=== PATIENT | male | born 1935 | race Hispanic/Latino ===

== ENCOUNTER 2019-01-24 14:10 | Emergency (ER) | payer OTHER ==
[2019-01-24] MEDS ORDERED: COLCHICINE 0.6 MG TAB ONE ×2 (20:10→22:08)
[2019-01-24] MEDS ORDERED: ACETAMINOPHEN 500 MG TAB ONE (20:10)
[2019-01-24 20:25] LABS: Absolute Lymphocytes (CBC) 1.4 K/uL (0.7-4.9); Absolute Monocytes 1.2 K/uL (0.1-1.3); Basophils % 0.8 % (0-1.3); Eosinophils % 1.2 % (0-4.4); Hematocrit 43.7 % (39.6-49.0); Lymphocytes % 12.8 % (15.3-44.8); MPV 8.5 fL (7.6-11.3); Monocytes % 11.2 % (3.3-12.3); Protime INR 1.23; RBC Red Blood Cell Count 5.17 M/uL (4.33-5.43)
[2019-01-24 20:38] LABS: ALT/SGPT 33 U/L (12-78); AST/SGOT 19 U/L (15-37); Albumin 3.4 g/dL (3.4-5.0); Alkaline Phosphatase 95 U/L (45-117); BUN Blood Urea Nitrogen 23 mg/dL (7-18); Bicarbonate 27 mmol/L (21-32); Bilirubin Direct 0.2 mg/dL (0-0.2); Bilirubin Total 0.8 mg/dL (0.2-1.0); Glucose Level 121 mg/dL (74-106); Magnesium 2.4 mg/dL (1.8-2.4); NT PRO-BNP 581 pg/mL (<450); Protein, Total 7.2 g/dL (6.4-8.2); Sodium Level 140 mmol/L (136-145); Troponin (Emerg Dept Use Only) < 0.02 ng/mL (0.0-0.045); Uric Acid 7.7 mg/dL (3.5-7.2)
[2019-01-24] MEDS ORDERED: CLINDAMYCIN IV 150 MG/ML (4 mL) VIAL ONE (20:39)
[2019-01-24] MEDS ORDERED: CLINDAMYCIN 600MG/D5W 600 MG/50 ML BAG IV ONE (20:40)
--- NOTE | 2019-01-24 21:15 | RAD REPORT ---
EXAM DESCRIPTION: RAD - Chest Single View - 01/24/2019 8:46 pm CLINICAL HISTORY: Chest pain, shortness of breath COMPARISON: December 2017 TECHNIQUE: AP portable chest image was obtained 2018 hour . FINDINGS: Patient has mild chronic interstitial lung findings. No focal mass, failure or infiltrate. Lung markings are similar to comparison. Heart and vasculature are normal. No measurable pleural effusion and no pneumothorax. No acute bony abnormality seen. No acute aortic findings suspected. IMPRESSION: No acute cardiopulmonary process. No significant change from comparison.
--- NOTE | 2019-01-24 21:16 | RAD REPORT ---
EXAM DESCRIPTION: RAD - Foot Right 3 View - 01/24/2019 8:46 pm CLINICAL HISTORY: Right foot pain and swelling COMPARISON: None. FINDINGS: No fracture, dislocation or periosteal reaction. No acute or destructive bone process seen . IP joint space narrowing present without spurring or erosive change. Degenerative changes moderate at the first MTP joint. Small plantar and small Achilles spurs are present. No air or foreign body in the soft tissues. IMPRESSION: Negative right foot examination for acute finding. Right foot degenerative change present as detailed.
--- NOTE | 2019-01-24 22:28 | ER ---
Nurse's Notes [facility] Name: Steve García Age: 83 yrs Sex: Male : 1935 Arrival Date: 01/24/2019 Time: 14:14 Bed 5 Private MD: None, None Diagnosis: Acute Right Foot Pain and Swelling Presentation: 01/24 14:35 Presenting complaint: Patient states: electric shock sensation to bilateral feet x ss years that has gotten worse over the past three days. states, "I think it's gout.". Transition of care: patient was not received from another setting of care. Onset of symptoms is unknown. Risk Assessment: Do you want to hurt yourself or someone else? Patient reports no desire to harm self or others. Initial Sepsis Screen: Does the patient meet any 2 criteria? No. Patient's initial sepsis screen is negative. Does the patient have a suspected source of infection? No. Patient's initial sepsis screen is negative. Care prior to arrival: None. 14:35 Method Of Arrival: Ambulatory ss 14:35 Acuity: DEANNE 4 ss 19:55 Acuity: EDANNE 3 tl2 Historical: - Allergies: 14:36 NKDA; ss - PMHx: 14:36 Hyperlipidemia; Hypertension; ss - PSHx: 14:36 kidney removal; Tonsillectomy; left ankle; ss - Immunization history:: Adult Immunizations unknown. - Social history:: Smoking status: Patient/guardian denies using tobacco. - Ebola Screening: : Patient denies exposure to infectious person Patient denies travel to an Ebola-affected area in the 21 days before illness onset. - Family history:: not pertinent. - Hospitalizations: : No recent hospitalization is reported. Screenin:26 Abuse screen: Denies threats or abuse. Nutritional screening: No deficits noted. tw2 Tuberculosis screening: No symptoms or risk factors identified. Fall Risk Secondary diagnosis (15 points) impaired mobility. Assessment: 18:23 General: Appears in no apparent distress. Behavior is calm, cooperative, appropriate tw2 for age. Pain: Complains of pain in right foot and left foot. Neuro: Level of Consciousness is awake, alert, obeys commands, Oriented to person, place, time, situation. Cardiovascular: Patient's skin is warm and dry. Respiratory: Airway is patent Respiratory effort is even, unlabored, Respiratory pattern is regular, symmetrical. GI: No signs and/or symptoms were reported involving the gastrointestinal system. : No signs and/or symptoms were reported regarding the genitourinary system. EENT: No signs and/or symptoms were reported regarding the EENT system. Derm: No signs and/or symptoms reported regarding the dermatologic system. Musculoskeletal: Circulation, motion, and sensation intact. Range of motion: intact in all extremities, Reports pain in right foot and left foot "tingling in my feet". 19:39 Reassessment: Patient appears in no apparent distress at this time. No changes from ak1 previously documented assessment. Patient and/or family updated on plan of care and expected duration. Pain level reassessed. Patient is alert, oriented x 3, equal unlabored respirations, skin warm/dry/pink. 19:50 Reassessment: pt and family informed of wait for ERP orders to be placed. ak1 20:33 Reassessment: pt requesting left foot be Xray, Dr. Lu said no. ak1 22:09 Reassessment: awaiting dispo. tl2 22:36 Reassessment: Patient appears in no apparent distress at this time. No changes from ak1 previously documented assessment. Patient and/or family updated on plan of care and expected duration. Pain level reassessed. Patient is alert, oriented x 3, equal unlabored respirations, skin warm/dry/pink. Vital Signs: 14:36 BP 132 / 62; Pulse 80; Resp 16; Temp 97.7(TE); Pulse Ox 100% on R/A; Weight 96.16 kg; ss Pain 10/10; 19:50 BP 141 / 66; Pulse 74; Resp 16; Temp 98(O); Pulse Ox 99% on R/A; ak1 21:18 BP 114 / 89; Pulse 67; Resp 17; Pulse Ox 99% on R/A; tl2 22:09 BP 127 / 66; Pulse 70; Resp 18; Pulse Ox 98% on R/A; tl2 22:46 BP 126 / 52; Pulse 62; Resp 16; Temp 98.3; Pulse Ox 98% on R/A; ak1 ED Course: 14:14 Patient arrived in ED. mr 14:14 None, None is Private Physician. mr 14:35 Triage completed. ss 14:36 Arm band placed on right wrist. ss 18:23 Bed in low position. Call light in reach. Adult w/ patient. Pulse ox on. NIBP on. tw2 19:00 Report given to JULIO CESAR Sahu and JULIO CESAR Babcock. tw2 19:16 Jean Lu MD is Attending Physician. wa 19:38 Adelnia Caballero RN is Primary Nurse. ak1 20:00 Initial lab(s) drawn, by me, sent to lab. First set of blood cultures drawn by me, ak1 Second set of blood cultures drawn by me, EKG done, by ED staff. 20:10 Inserted saline lock: 22 gauge in right antecubital area, using aseptic technique. ak1 Blood collected. 20:46 XRAY Chest (1 view) In Process Unspecified. EDMS 20:46 Foot Right 3 View XRAY In Process Unspecified. EDMS 22:36 No provider procedures requiring assistance completed. ak1 22:49 IV discontinued, intact, bleeding controlled, No redness/swelling at site. Pressure ak1 dressing applied. Administered Medications: 20:05 Drug: Tylenol 1000 mg Route: PO; tl2 22:00 Follow up: Response: No adverse reaction tl2 20:06 Drug: Colcrys 1.2 mg Route: PO; tl2 22:01 Follow up: Response: No adverse reaction tl2 20:32 Drug: Clindamycin 900 mg Route: IVPB; Infused Over: 30 mins; Site: right antecubital; tl2 21:07 Follow up: IV Status: Completed infusion tl2 22:00 Drug: Colcrys 0.6 mg Route: PO; tl2 22:47 Follow up: Response: No adverse reaction ak1 Outcome: 22:28 Discharge ordered by . wa 22:37 Condition: stable ak1 22:49 Discharged to home via wheelchair, with family. ak1 22:49 Discharge instructions given to patient, family, Instructed on discharge instructions, follow up and referral plans. medication usage, Demonstrated understanding of instructions, follow-up care, medications, Prescriptions given X 1. 22:49 Patient left the ED. ak1 Signatures: Dispatcher [employer] EDCA Gita ClarkLiset RN RN Adelina Caballero RN RN ak1 Faustina Watkins RN RN tw2 Yoko Mackenzie RN RN tl2 Jean Lu MD MD wa
--- NOTE | 2019-01-24 22:28 | EDPHYS ---
Physician Documentation [facility] Name: Steve García Age: 83 yrs Sex: Male : 1935 Arrival Date: 01/24/2019 Time: 14:14 Bed 5 Private MD: None, None ED Physician Jean Lu HPI: 01/24 20:40 This 83 yrs old Male presents to ER via Ambulatory with complaints of Feet wa Swelling. 20:40 The patient presents with pain, that is acute, swelling, tenderness, redness. The wa complaints affect the right foot. Context: denies injury. h/o same, on and off x several years. denies fever or chills. states both feet hurt and tingle all the time. This time swelling to right x 3 days. Onset: The symptoms/episode began/occurred 3 day(s) ago. Modifying factors: The symptoms are alleviated by nothing, the symptoms are aggravated by weight bearing, movement. Associated signs and symptoms: Pertinent positives: of the right foot, worse on dorsum, swelling, tingling warmth, Pertinent negatives: calf tenderness, fever, numbness, vomiting. Severity of symptoms: At their worst the symptoms were moderate, in the emergency department the symptoms are unchanged. The patient has experienced similar episodes in the past, multiple times, x several years. The patient has not recently seen a physician[facility] Historical: - Allergies: 14:36 NKDA; ss - PMHx: 14:36 Hyperlipidemia; Hypertension; ss - PSHx: 14:36 kidney removal; Tonsillectomy; left ankle; ss - Immunization history:: Adult Immunizations unknown. - Social history:: Smoking status: Patient/guardian denies using tobacco. - Ebola Screening: : Patient denies exposure to infectious person Patient denies travel to an Ebola-affected area in the 21 days before illness onset. - Family history:: not pertinent. - Hospitalizations: : No recent hospitalization is reported. ROS: 20:47 MS/extremity: Positive for erythema, pain, swelling, tenderness, of the right foot, wa Negative for deformity, ecchymosis, laceration. 20:47 Constitutional: Negative for fever, chills, and weight loss, Eyes: Negative for injury, pain, redness, and discharge, ENT: Negative for injury, pain, and discharge, Neck: Negative for injury, pain, and swelling, Cardiovascular: Negative for chest pain, palpitations, and edema, Abdomen/GI: Negative for abdominal pain, nausea, vomiting, diarrhea, and constipation, Back: Negative for injury and pain, : Negative for injury, bleeding, discharge, and swelling, Neuro: Negative for headache, weakness, numbness, tingling, and seizure, Psych: Negative for depression, anxiety, suicide ideation, homicidal ideation, and hallucinations. 20:47 Respiratory: Positive for dyspnea on exertion. 20:47 MS/extremity: Positive for erythema, pain, swelling, tenderness, of the right foot. 20:47 Skin: Positive for erythema, swelling, increased warmth, tenderness. worse on dorsal aspect and big toe and lateral aspect of the foot. Exam: 20:50 Constitutional: This is a well developed, well nourished patient who is awake, alert, wa and in no acute distress. Head/Face: Normocephalic, atraumatic. Eyes: Pupils equal round and reactive to light, extra-ocular motions intact. Lids and lashes normal. Conjunctiva and sclera are non-icteric and not injected. Cornea within normal limits. Periorbital areas with no swelling, redness, or edema. ENT: Nares patent. No nasal discharge, no septal abnormalities noted. Tympanic membranes are normal and external auditory canals are clear. Oropharynx with no redness, swelling, or masses, exudates, or evidence of obstruction, uvula midline. Mucous membranes moist. Neck: Trachea midline, no thyromegaly or masses palpated, and no cervical lymphadenopathy. Supple, full range of motion without nuchal rigidity, or vertebral point tenderness. No Meningismus. Chest/axilla: Normal chest wall appearance and motion. Nontender with no deformity. No lesions are appreciated. Cardiovascular: Regular rate and rhythm with a normal S1 and S2. No gallops, murmurs, or rubs. Normal PMI, no JVD. No pulse deficits. Respiratory: Lungs have equal breath sounds bilaterally, clear to auscultation and percussion. No rales, rhonchi or wheezes noted. No increased work of breathing, no retractions or nasal flaring. Abdomen/GI: Soft, non-tender, with normal bowel sounds. No distension or tympany. No guarding or rebound. No evidence of tenderness throughout. Back: No spinal tenderness. No costovertebral tenderness. Full range of motion. Neuro: Awake and alert, GCS 15, oriented to person, place, time, and situation. Cranial nerves II-XII grossly intact. Motor strength 5/5 in all extremities. Sensory grossly intact. Cerebellar exam normal. Normal gait. Psych: Awake, alert, with orientation to person, place and time. Behavior, mood, and affect are within normal limits. 20:50 Musculoskeletal/extremity: Extremities: grossly normal except: noted in the right foot: erythema, pain, swelling, tenderness, increased warmth, especially at MTP of great toe and R lateral foot. 20:50 Skin: R dorsal redness, swelling, tenderness. . Vital Signs: 14:36 BP 132 / 62; Pulse 80; Resp 16; Temp 97.7(TE); Pulse Ox 100% on R/A; Weight 96.16 kg; ss Pain 10/10; 19:50 BP 141 / 66; Pulse 74; Resp 16; Temp 98(O); Pulse Ox 99% on R/A; ak1 21:18 BP 114 / 89; Pulse 67; Resp 17; Pulse Ox 99% on R/A; tl2 22:09 BP 127 / 66; Pulse 70; Resp 18; Pulse Ox 98% on R/A; tl2 22:46 BP 126 / 52; Pulse 62; Resp 16; Temp 98.3; Pulse Ox 98% on R/A; ak1 MDM: 19:17 Patient medically screened. wa 20:52 Differential diagnosis: gout, cellulitis. Data reviewed: vital signs, nurses notes. wa 21:29 Test interpretation: by ED physician or midlevel provider: labs noted for glucose 121. wa BUN 23. Cr. 1.43. nml cbc. BNP 581. uric acid 7.7 CXR negative. mild elevation in uric acid. nml wbc. mild elevation in BNP. decreased GFR. . 21:32 Test interpretation: by ED physician or midlevel provider: Ash ASIF. no acute wa findings. . 21:34 Response to treatment: the patient's symptoms have mildly improved after treatment, wa appears comfortable. will give second dose of colcrys. will cover with abx as well, r/o cellulitis. 21:36 Test interpretation: by ED physician or midlevel provider: ECG, EKG: HR 71. LVH. wa incomplete RBBB. leftward axis. non-specific ST-T changes. 22:26 ED course: will d/c with abx for potential cellulitis. received full dose of colcrys in [place] ED. tylenol for pain. 01/24 19:52 Order name: Basic Metabolic Panel; Complete Time: 21:28 [place] 01/24 19:52 Order name: CBC with Diff; Complete Time: 21: [place] 01/24 19:52 Order name: LFT's; Complete Time: : [place] 01/24 19:52 Order name: Magnesium; Complete Time: 21:29 [place] 01/24 19:52 Order name: NT PRO-BNP; Complete Time: 21: [place] 01/24 19:52 Order name: PT-INR; Complete Time: 21: [place] 01/24 19:52 Order name: Troponin (emerg Dept Use Only); Complete Time: 21:29 [place] 01/24 19:52 Order name: XRAY Chest (1 view); Complete Time: 21: [place] 01/24 19:53 Order name: Foot Right 3 View XRAY; Complete Time: 21:31 [place] 01/24 19:53 Order name: Uric Acid; Complete Time: 21:29 [place] 01/24 19:58 Order name: Urine Microscopic Only [place] 01/24 22:48 Order name: Urine Dipstick--Ancillary (enter results) [facility] 01/24 19:52 Order name: EKG; Complete Time: 19:53 [place] 01/24 19:52 Order name: Cardiac monitoring; Complete Time: 20: [place] 01/24 19:52 Order name: EKG - Nurse/Tech; Complete Time: 20: [place] 01/24 19:52 Order name: IV Saline Lock; Complete Time: 20:06 [place] 01/24 19:52 Order name: Labs collected and sent; Complete Time: 20:06 [place] 01/24 19:52 Order name: O2 Per Protocol; Complete Time: 19:54 01/24 19:52 Order name: O2 Sat Monitoring; Complete Time: 19:54 [place] 01/24 19:58 Order name: Urine Dipstick-Ancillary (obtain specimen); Complete Time: 22:47 [place] Administered Medications: 20:05 Drug: Tylenol 1000 mg Route: PO; tl2 22:00 Follow up: Response: No adverse reaction tl2 20:06 Drug: Colcrys 1.2 mg Route: PO; tl2 22:01 Follow up: Response: No adverse reaction tl2 20:32 Drug: Clindamycin 900 mg Route: IVPB; Infused Over: 30 mins; Site: right antecubital; tl2 21:07 Follow up: IV Status: Completed infusion tl2 22:00 Drug: Colcrys 0.6 mg Route: PO; tl2 22:47 Follow up: Response: No adverse reaction ak1 Disposition: 01/24/19 22:28 Discharged to Home. Impression: Acute Right Foot Pain and Swelling. - Condition is Stable. - Discharge Instructions: Gout, [place]-P[place]. - Prescriptions for Doxycycline Hyclate 100 mg Oral Tablet - take 1 tablet by ORAL route 2 times per day for 7 days; 14 tablet. - Medication Reconciliation Form, Thank You Letter, Antibiotic Education, Prescription Opioid Use form. - Follow up: Private Physician; When: 2 - 3 days; Reason: Re-evaluation by your physician. - Problem is an acute exacerbation. - Symptoms have improved. - Notes: take tylenol for pain. elevate your feet when at home to help reduce swelling. see your doctor or return here immediately if rapidly worsening with associated pain and or swelling Signatures: Dispatcher [employer] EDMS Liset Cabrera RN RN Adelina Caballero RN RN ak1 Yoko Mackenzie RN RN tl2 Jean Lu MD MD wa Corrections: (The following items were deleted from the chart) 22:49 22:28 01/24/2019 22:28 Discharged to Home. Impression: Acute Right Foot Pain and ak1 Swelling. Condition is Stable. Forms are Medication Reconciliation Form, Thank You Letter, Antibiotic Education, Prescription Opioid Use. Follow up: Private Physician; When: 2 - 3 days; Reason: Re-evaluation by your physician. Problem is an acute exacerbation. Symptoms have improved. wa
[2019-01-24 23:24] VITALS: O2SAT 98
[2019-01-24 23:25] VITALS: BP 126/52; TEMP 98.3
[2019-01-24 23:32] LABS: Urine Blood NEGATIVE (NEG); Urine Glucose NEGATIVE (NEG); Urine Protein 2+ (NEG); Urine Specific Gravity 1.025 (1.005-1.030); Urine pH 5.5 (5.0-7.0)
[2019-01-24 23:45] LABS: Urine Bacteria <20 /HPF (NONE SEEN); Urine Culture Reflex Order NOT NEEDED; Urine RBC <5 /HPF (NONE SEEN)
--- NOTE | 2019-01-27 10:28 | EKG ---
Test Date: 2019-01-24 Test Time: 20:07:07 [employer] [place] [employer]: TYLER MEASUREMENT RESULTS: Intervals: Rate: 71 ID: [id number] QRSD: 110 QT: 410 QTc: 445 [place]: P: 26 ID: [id number] QRS: -57 T: 129 INTERPRETIVE STATEMENTS: Normal sinus rhythm Left anterior fascicular block Left ventricular hypertrophy with repolarization abnormality Abnormal ECG Compared to ECG 01/12/2015 15:27:33 Left ventricular hypertrophy now present Early repolarization now present Electronically Signed On 01-25-19 12:41:20 CDT by Jonathon Mazariegos
== END 2019-01-24 22:49 | disposition home or self-care (01) ==
LOC: ER 14:10
DX: M79.89 Other specified soft tissue disorders (principal); M79.671 Pain in right foot; E78.5 Hyperlipidemia, unspecified; I10 Essential (primary) hypertension
CPT/HCPCS: 36415; 71045; 80048; 80076; 81003; 81015; 83735; 83880; 84484; 84550; 85025; 85610; 93005; 96365; 99284; S0077

== ENCOUNTER 2019-10-26 06:08 | Inpatient (IN) | payer OTHER ==
[2019-10-26 07:05] LABS: Absolute Lymphocytes (CBC) 0.9 K/uL (0.7-4.9); Basophils % 0.5 % (0-1.3); Hematocrit 46.6 % (39.6-49.0); Lymphocytes % 5.1 % (15.3-44.8); MPV 8.7 fL (7.6-11.3); RBC Red Blood Cell Count 5.54 M/uL (4.33-5.43)
[2019-10-26] MEDS ORDERED: FENTANYL CITR 100 MCG/2 ML ONE ×3 (07:14→12:23)
[2019-10-26] MEDS ORDERED: ONDANSETRON 4 MG/2 ML VIAL ONE ×2 (07:14→12:23)
[2019-10-26 07:41] LABS: Bilirubin Direct 0.2 mg/dL (0-0.2); Bilirubin Total 0.7 mg/dL (0.2-1.0); Potassium 4.9 mmol/L (3.5-5.1); Protein, Total 7.9 g/dL (6.4-8.2)
[2019-10-26] MEDS ORDERED: LIDOCAINE VISCOUS 2% SOLN 15 ML UDC ONE (07:59)
[2019-10-26] MEDS ORDERED: NACL 0.9% IRR SOLN 2,000 ML IRR ONE ×2 (07:59→21:56)
[2019-10-26] MEDS ORDERED: CEFTRIAXONE/SWI 1gm 1 GM/10 ML SYR ONE (08:00)
[2019-10-26 08:48] LABS: Urine Bilirubin NEGATIVE (NEG); Urine Glucose NEGATIVE (NEG); Urine Protein 3+ (NEG); Urine Specific Gravity 1.025 (1.005-1.030); Urine Urobilinogen 0.2 mg/dL (0.2-1.0); Urine pH 7.5 (5.0-7.0)
[2019-10-26 08:50] LABS: Urine Color RED
[2019-10-26 08:51] LABS: Urine Appearance TURBID; Urine Blood 3+ (NEG)
[2019-10-26 08:59] LABS: Urine Bacteria 20-50 /HPF (NONE SEEN); Urine Culture Reflex Order REFLEXED; Urine Mucus 1+ /HPF (NONE SEEN); Urine RBC TNTC /HPF (NONE SEEN)
[2019-10-26 09:14] LABS: Blood Morphology Comment NOT SEEN (NOT SEEN); Platelet Estimate ADEQ; Urine White Blood Cell Casts OK
--- NOTE | 2019-10-26 09:36 | ER ---
Nurse's Notes [facility] Name: Steve García Age: 84 yrs Sex: Male : 1935 Arrival Date: 10/26/2019 Time: 06:10 Bed 15 Private MD: Diagnosis: Urinary tract infection, site not specified;Hematuria;Retention of urine Presentation: 10/26 06:21 Presenting complaint: Patient states: blood in urine since last night and pain in groin aa1 since this am. Reports hx of kidney stones with similar pain. Transition of care: patient was not received from another setting of care. Onset of symptoms was October 25, 2019. Risk Assessment: Do you want to hurt yourself or someone else? Patient reports no desire to harm self or others. Initial Sepsis Screen: Does the patient meet any 2 criteria? HR > 90 bpm. Does the patient have a suspected source of infection? Yes: Dysuria/Frequency/Urgency/UTI. Care prior to arrival: None. 06:21 Method Of Arrival: Ambulatory aa1 06:21 Acuity: DEANNE 3 aa1 Triage Assessment: 06:23 General: Appears in no apparent distress. comfortable, Behavior is calm, cooperative, aa1 appropriate for age. Historical: - Allergies: 06:23 NKDA; aa1 - Home Meds: 06:23 None [Active]; aa1 - PMHx: 06:23 Hyperlipidemia; Hypertension; Kidney stones; aa1 - PSHx: 06:23 kidney removal; Tonsillectomy; left ankle; aa1 - Immunization history:: Flu vaccine is up to date. - Social history:: Smoking status: Patient/guardian denies using tobacco. - Ebola Screening: : No symptoms or risks identified at this time. Screenin:31 Abuse screen: Denies threats or abuse. Denies injuries from another. Nutritional hb screening: No deficits noted. Tuberculosis screening: No symptoms or risk factors identified. Fall Risk None identified. Assessment: 07:15 General: Appears in no apparent distress. Behavior is calm, cooperative. hb 07:15 Pain: Pain currently is 8 out of 10 on a pain scale. Neuro: Level of Consciousness is hb awake, alert, obeys commands, Oriented to person, place, time, situation. Cardiovascular: Capillary refill < 3 seconds Patient's skin is warm and dry. Respiratory: Airway is patent Respiratory effort is even, unlabored, Respiratory pattern is regular, symmetrical. GI: Reports nausea. : Reports decreased urine output, blood in urine, bilateral flank pain. EENT: No signs and/or symptoms were reported regarding the EENT system. Derm: Skin is pink, warm \T\ dry. Musculoskeletal: No signs and/or symptoms reported regarding the musculoskeletal system. 08:02 Reassessment: Patient appears in no apparent distress at this time. Patient and/or hb family updated on plan of care and expected duration. Pain level reassessed. Patient is alert, oriented x 3, equal unlabored respirations, skin warm/dry/pink. 09:15 Reassessment: Pt reports pain 8/10, WILL Carson notified, repeat fentanyl administered as hb ordered. 09:40 Reassessment: 3way birch requiring manual irrigation due to clots, WILL Carson aware. hb Vital Signs: 06:23 BP 114 / 53; Pulse 103; Resp 18; Temp 97.0; Pulse Ox 94% on R/A; Weight 102.06 kg; aa1 Height 5 ft. 8 in. (172.72 cm); Pain 10/10; 10:20 BP 120 / 72; Pulse 79; Resp 14; Pulse Ox 98% on 2 lpm NC; Pain 0/10; sg 11:20 BP 116 / 70; Pulse 72; Resp 16; Pulse Ox 99% on R/A; sg 06:23 Body Mass Index 34.21 (102.06 kg, 172.72 cm) aa1 ED Course: 06:10 Patient arrived in ED. ds1 06:17 Alli Valencia PA is PHCP. jr8 06:17 Jean Lu MD is Attending Physician. jr8 06:22 Triage completed. aa1 06:23 Arm band placed on right wrist. Patient placed in an exam room, on a stretcher. aa1 06:30 Inserted saline lock: 20 gauge in right antecubital area, using aseptic technique. wh Blood collected. 06:52 CT Stone Protocol In Process Unspecified. EDMS 07:15 Patient has correct armband on for positive identification. Bed in low position. Call hb light in reach. Side rails up X 1. 07:30 Arely Gonzalez, JULIO CESAR is Primary Nurse. hb 08:20 3-way catheter inserted, using sterile technique, 20 Fr. Returned bloody urine. hb 09:34 Jatin Laguna MD is Hospitalizing Provider. jr8 09:46 Primary Nurse role handed off by Arely Gonzalez RN sg 09:46 Mj Rendon RN is Primary Nurse. sg 11:40 No provider procedures requiring assistance completed. Patient admitted, IV remains in sg place. intact. Administered Medications: 07:22 Drug: fentaNYL (PF) 50 mcg Route: IVP; Site: right antecubital; hb 09:00 Follow up: Response: No adverse reaction hb 07:22 Drug: Zofran 4 mg Route: IVP; Site: right antecubital; hb 08:00 Follow up: Response: No adverse reaction hb 08:20 Drug: Uromatic Irrigation - NS 0.9% 1 irrig Volume: 2000 ml; Route: IV; Rate: bolus; sg Site: Other; 10:20 Follow up: Urine output 2000 ml; IV Intake: 2000ml sg 09:40 Drug: Rocephin 1 grams Route: IV; Rate: calculated rate; Site: right antecubital; hb 10:00 Follow up: Response: No adverse reaction; IV Status: Completed infusion; IV Intake: 10mlhb 09:47 Drug: fentaNYL (PF) 50 mcg Route: IVP; Site: right antecubital; hb 10:20 Follow up: Response: No adverse reaction hb Intake: 10:00 IV: 10ml; Total: 10ml. hb 10:20 IV: 2000ml; Total: 2010ml. sg Output: 10:20 Urine: 2000ml; Total: 2000ml. sg Outcome: 09:34 Decision to Hospitalize by Provider. jr8 11:42 Admitted to OR accompanied by nurse, via stretcher, with chart. sg 11:42 Condition: stable 11:42 Instructed on the need for admit, safety practices, Demonstrated understanding of follow-up care. 11:44 Patient left the ED. Signatures: Dispatcher [employer] EDMj Hsu, JULIO CESAR HARRELL Nazanin Johnson RN RN aa1 Arminda Kaminski ds1 Krys Dyer RN RN Alli Valencia PA PA jr8 Arely Gonzalez RN RN Jermaine Henriquez
--- NOTE | 2019-10-26 09:36 | EDPHYS ---
Physician Documentation [facility] Name: Steve García Age: 84 yrs Sex: Male : 1935 Arrival Date: 10/26/2019 Time: 06:10 Bed 15 Private MD: ED Physician Jean Lu HPI: 10/26 06:33 This 84 yrs old Male presents to ER via Ambulatory with complaints of Blood in jr8 Urine, Pain. 06:33 The patient presents with scrotal pain, of both sides, urinary symptoms, urinary jr8 frequency, hematuria. Onset: The symptoms/episode began/occurred acutely, today. Modifying factors: The symptoms are alleviated by nothing, the symptoms are aggravated by urinating. Associated signs and symptoms: The patient has no apparent associated signs or symptoms. Severity of symptoms: At their worst the symptoms were moderate, in the emergency department the symptoms are unchanged. The patient has not experienced similar symptoms in the past. The patient has not recently seen a physician. Historical: - Allergies: 06:23 NKDA; aa1 - Home Meds: 06:23 None [Active]; aa1 - PMHx: 06:23 Hyperlipidemia; Hypertension; Kidney stones; aa1 - PSHx: 06:23 kidney removal; Tonsillectomy; left ankle; aa1 - Immunization history:: Flu vaccine is up to date. - Social history:: Smoking status: Patient/guardian denies using tobacco. - Ebola Screening: : No symptoms or risks identified at this time. ROS: 06:33 Constitutional: Negative for fever, chills, and weight loss. jr8 06:33 Abdomen/GI: Negative for abdominal pain, nausea, vomiting, diarrhea, and constipation. 06:33 : Positive for urinary symptoms, urinary frequency, hematuria, testicular pain 06:33 All other systems are negative. Exam: 06:33 Eyes: Pupils equal round and reactive to light, extra-ocular motions intact. Lids and jr8 lashes normal. Conjunctiva and sclera are non-icteric and not injected. Cornea within normal limits. Periorbital areas with no swelling, redness, or edema. ENT: Nares patent. No nasal discharge, no septal abnormalities noted. Tympanic membranes are normal and external auditory canals are clear. Oropharynx with no redness, swelling, or masses, exudates, or evidence of obstruction, uvula midline. Mucous membranes moist. Neck: Trachea midline, no thyromegaly or masses palpated, and no cervical lymphadenopathy. Supple, full range of motion without nuchal rigidity, or vertebral point tenderness. No Meningismus. Cardiovascular: Regular rate and rhythm with a normal S1 and S2. No gallops, murmurs, or rubs. Normal PMI, no JVD. No pulse deficits. Respiratory: Lungs have equal breath sounds bilaterally, clear to auscultation and percussion. No rales, rhonchi or wheezes noted. No increased work of breathing, no retractions or nasal flaring. Back: No spinal tenderness. No costovertebral tenderness. Full range of motion. Skin: Warm, dry with normal turgor. Normal color with no rashes, no lesions, and no evidence of cellulitis. MS/ Extremity: Pulses equal, no cyanosis. Neurovascular intact. Full, normal range of motion. Neuro: Awake and alert, GCS 15, oriented to person, place, time, and situation. Cranial nerves II-XII grossly intact. Motor strength 5/5 in all extremities. Sensory grossly intact. Cerebellar exam normal. Normal gait. 06:33 Abdomen/GI: Soft, non-tender, with normal bowel sounds. No distension or tympany. No guarding or rebound. No evidence of tenderness throughout. 06:33 : Male external genitalia: normal, no abrasion, no discharge, no erythema, no injury, no swelling, no tenderness, no evidence of ulceration, Bladder: tenderness, that is mild, no rinku hematuria noted at this time . Vital Signs: 06:23 BP 114 / 53; Pulse 103; Resp 18; Temp 97.0; Pulse Ox 94% on R/A; Weight 102.06 kg; aa1 Height 5 ft. 8 in. (172.72 cm); Pain 10/10; 10:20 BP 120 / 72; Pulse 79; Resp 14; Pulse Ox 98% on 2 lpm NC; Pain 0/10; sg 11:20 BP 116 / 70; Pulse 72; Resp 16; Pulse Ox 99% on R/A; sg 06:23 Body Mass Index 34.21 (102.06 kg, 172.72 cm) aa1 MDM: 06:17 Patient medically screened. 8 09:33 Data reviewed: vital signs, nurses notes, lab test result(s), radiologic studies, CT jr8 scan. Data interpreted: Pulse oximetry: on room air is 95 %. Interpretation: normal. Counseling: I had a detailed discussion with the patient and/or guardian regarding: the historical points, exam findings, and any diagnostic results supporting the discharge/admit diagnosis, lab results, radiology results, the need for further work-up and treatment in the hospital. ED course: Patient still having on/off obstruction even with hematuria catheter in place. Dr. Mitchell consulted and will see patient in hospital. Will admit to medicine . 10/26 06:26 Order name: Basic Metabolic Panel; Complete Time: 07:45 jr8 10/26 06:26 Order name: CBC with Diff; Complete Time: 09:25 jr8 10/26 06:26 Order name: Creatinine for Radiology; Complete Time: 07:33 jr8 10/26 06:26 Order name: Hepatic Function; Complete Time: 07:45 jr8 10/26 08:41 Order name: Urinalysis W/Microscopic; Complete Time: 09:25 EDMS 10/26 06:26 Order name: CT Stone Protocol; Complete Time: 10:23 jr8 10/26 09:07 Order name: Urine Culture EDMS 10/26 09:15 Order name: CBC Smear Scan; Complete Time: 09:25 EDMS 10/26 06:26 Order name: IV Saline Lock; Complete Time: 06:59 jr8 10/26 06:26 Order name: Labs collected and sent; Complete Time: 06:59 jr8 10/26 07:45 Order name: Hematuria birch cath; Complete Time: 09:54 jr8 Administered Medications: 07:22 Drug: fentaNYL (PF) 50 mcg Route: IVP; Site: right antecubital; hb 09:00 Follow up: Response: No adverse reaction hb 07:22 Drug: Zofran 4 mg Route: IVP; Site: right antecubital; hb 08:00 Follow up: Response: No adverse reaction hb 08:20 Drug: Uromatic Irrigation - NS 0.9% 1 irrig Volume: 2000 ml; Route: IV; Rate: bolus; sg Site: Other; 10:20 Follow up: Urine output 2000 ml; IV Intake: 2000ml sg 09:40 Drug: Rocephin 1 grams Route: IV; Rate: calculated rate; Site: right antecubital; hb 10:00 Follow up: Response: No adverse reaction; IV Status: Completed infusion; IV Intake: 10mlhb 09:47 Drug: fentaNYL (PF) 50 mcg Route: IVP; Site: right antecubital; hb 10:20 Follow up: Response: No adverse reaction hb Disposition: 18:25 Co-signature as Attending Physician, Jean Lu MD I agree with the assessment and ga plan of care. Disposition: 10/26/19 09:34 Hospitalization ordered by Jatin Laguna for Inpatient Admission. Preliminary diagnosis are Urinary tract infection, site not specified, Hematuria, Retention of urine. - Bed requested for Telemetry/MedSurg (Inpatient). - Status is Inpatient Admission. iw - Condition is Stable. - Problem is new. - Symptoms have improved. UTI on Admission? Yes Signatures: Dispatcher [employer] EDFL Mj Rendon, RN RN Nazanin Johnson RN RN aa1 Krys Dyer RN RN Alli Valencia PA PA jr8 Arely Gonzalez RN RN Jean Lu MD MD ga Corrections: (The following items were deleted from the chart) 08:44 06:17 UA MICROSCOPIC+U.LAB.BRZ ordered. [facility] EDFL 11:44 09:34 Hospitalization Ordered by Jatin Laguna MD for Inpatient Admission. Preliminary iw diagnosis is Urinary tract infection, site not specified; Hematuria; Retention of urine. Bed requested for Telemetry/MedSurg (Inpatient). Status is Inpatient Admission. Condition is Stable. Problem is new. Symptoms have improved. UTI on Admission? Yes. jr8
--- NOTE | 2019-10-26 10:10 | RAD REPORT ---
EXAM DESCRIPTION: CT - Stone Protocol - 10/26/2019 7:32 am ADDENDUM #1 THIS REPORT CONTAINS FINDINGS THAT MAY BE CRITICAL TO PATIENT CARE: The findings were verbally discussed via telephone conference with Alli SOTO) by Dr. Chano Montoya on 9 7:52 AM SEAT MAKER .The results were acknowledged and understood. Electronically signed by: Chano Montoya MD 10/26/2019 7:53 AM SEAT MAKER End of Addendum EXAM DESCRIPTION: CT Abdomen and Pelvis Without Intravenous Contrast CLINICAL HISTORY: The patient is 84 years old and is Male; HEMATURIA HS MAIN TECHNIQUE: Axial computed tomography images of the abdomen and pelvis without intravenous contrast. Sagittal and coronal reformatted images were created and reviewed. As a consequence of the lack o f intravenous contrast, there is limited evaluation of the organs and soft tissues. This CT exam wa s performed using one or more of the following dose reduction techniques: automated exposure contro l, adjustment of the mA and/or kV according to patient size, and/or use of iterative reconstruction t echnique. COMPARISON: No relevant prior studies available. FINDINGS: LUNG BASES: There is some patchy subpleural inflammatory appearing opacity at the LEFT lung base, which could be from patchy atelectasis. There is a subpleural RIGHT lower lobe 1 cm pulm onary nodule identified on image 19 of series 201. There is a 1 cm lesion in the subpleural anterio r lingula on image 24. HEART: There are coronary artery calcifications noted. ABDOMEN: LIVER: Unremarkable noncontrast appearance of the liver. GALLBLADDER AND BILE DUCTS: Unremarkable. No calcified stones. No ductal dilation. PANCREAS: Unremarkable. No ductal dilation. SPLEEN: Unremarkable. No splenomegaly. No splenic lesion noted. ADRENALS: Unremarkable. No mass. KIDNEYS AND URETERS: There is been prior RIGHT nephrectomy. There is mild compensatory hypertrophy of the solitary LEFT kidney. There are multiple LEF T renal cysts identified. The largest is medial in the interpolar region measuring 4.2 cm. No lef t-sided nephrolithiasis. No left-sided hydronephrosis or ureterectasis. There is no evidence of tumor recurrence or residual tumor on noncontrast CT in the RIGHT re nal fossa. STOMACH AND BOWEL: There is no evidence of diverticulitis. There is no evidence of bowel obstructi on. There is No oral contrast opacifying the bowel. PELVIS: APPENDIX: The appendix is visualized and is normal in appearance. BLADDER: There is a large high density mass within the superior half of the urinary bladder measur ing over 8.4 cm with some scattered internal calcifications. It could be a hematoma or tumor. No stones. REPRODUCTIVE: Unremarkable as visualized. ABDOMEN and PELVIS: INTRAPERITONEAL SPACE: Unremarkable. No free air. No significant fluid collection. BONES/JOINTS: There are degenerative changes of the spine identified. SOFT TISSUES: There is rectus diastases of the anterior abdominal wall. There is a small fat containing umbilical hernia noted. VASCULATURE: There are atheromatous vascular calcifications of the aortoiliac system. No abdominal aortic aneurysm. LYMPH NODES: Unremarkable. No significant retroperitoneal or pelvic lymphadenopathy. IMPRESSION: 1. There is a large high density mass within the superior half of the urinary bladder measuring over 8.4 cm with some scattered internal calcifications. It could be a hematoma or tumor. Recommend further evaluation with cystoscopy. 2. There is been prior RIGHT nephrectomy. There is mild compensatory hypertrophy of the solitary LEFT kidney. There are multiple LEFT renal cysts identified. The largest is medial in the interpo lar region measuring 4.2 cm. No left-sided nephrolithiasis. No left-sided hydronephrosis or urete rectasis. 3. No prior studies are available at this time for comparison, and if they can be made available, i t would be recommended for better evaluation. 4. There is some patchy subpleural inflammatory appearing opacity at the LEFT lung base, which coul d be from patchy atelectasis. There is a subpleural RIGHT lower lobe 1 cm pulmonary nodule identifi ed on image 19 of series 201. There is a 1 cm lesion in the subpleural anterior lingula on image 24 . These could be pulmonary metastases given their size. For solid pulmonary nodule detected on in complete chest CT, recommend immediate Chest CT for further evaluation. These guidelines do not angel ly to immunocompromised patients and patients with cancer. Follow up in patients with significant com orbidities as clinically warranted. For lung cancer screening, adhere to Lung-RADS guidelines. Refere nce: Radiology. 2017; 284(1):228-43. Electronically signed by: Chano Montoya MD 10/26/2019 7:26 AM SEAT MAKER Due to temporary technical issues with the PACS/Fluency reporting system, reports are being signed by the in house radiologist as a courtesy to ensure prompt reporting. The interpreting radiologist is f ully responsible for the content of the report.
[2019-10-26] MEDS ORDERED: Ringers Lactate 1,000 ML IV ONE (11:51)
--- NOTE | 2019-10-26 11:55 | CON ---
History Of Present Illness: 84-year-old male presenting to the ER with gross hematuria. He was having clots and urinary retention. Therefore, a 3-way Turpin catheter was placed and tried to irrigate the patient, but the catheter was also getting obstructed intermittently, so we decided to admit the patient for cystoscopy, clot evacuation, possible TURBT. 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 He has a compensatory hypertrophy of the left kidney with some renal cysts, multiple renal cysts, largest is 4.2 cm. He has no left-sided hydronephrosis nor stones in the bladder. He had an 8.4 cm large high-density mass in the superior half of the urinary bladder with some scattered internal calcification, could be hematoma versus tumor vs BPH. So, the plan is for cystoscopy, clot evacuation, possible TURBT / TURP. Allergies: NO KNOWN DRUG ALLERGIES. Home Medications: None. Past Medical History: Hyperlipidemia, hypertension, and kidney stones. Past Surgical History: Kidney stone removal, tonsillectomy, right nephrectomy. Immunizations: Up to date. Social History: The patient denies tobacco smoking. Review of Systems: Otherwise negative. Constitutional: Negative for fever, chills. Abdomen: Negative for abdominal pain. : As mentioned above positive for urinary frequency, hematuria, testicular pain. Physical Examination: Vital Signs: Blood pressure 114/53, pulse 103, respirations 18, temperature 97.0. HEENT: Atraumatic, normocephalic. Chest: Clear to auscultation bilaterally. Abdomen: Soft, nontender. Extremities: Normal range of motion. Laboratory Data: Reviewed. White count elevated to 16.7, H and H are 15.5 and 46.6, platelet count 271. The chemistries showed sodium 141, potassium 4.9, chloride 108, bicarb 23, glucose 164, BUN 31, creatinine 2.19, GFR 29. Liver, LFTs normal. UA shows too numerous to count rbc, bacteria 20-50. Reflex urine culture is set up. Assessment: 84-year-old gentleman with gross hematuria and a bladder mass. Plan: Plan is for cystoscopy, clot evacuation, possible TURBTOR TURP possible fulguration. All the general information, alternatives, and risks were reviewed. The patient wishes to proceed. KERRIE/CARLOSL Voice ID: [id number] Report ID: [id number] SHYAM
[2019-10-26] MEDS ORDERED: LIDOCAINE 2% MPF 5 ML VIAL ONE (12:23)
[2019-10-26] MEDS ORDERED: propofoL 200 MG/20 ML VIAL IV ONE (12:23)
[2019-10-26] MEDS ORDERED: EPHEDRINE SULF 50 MG/ML VIAL ONE (12:56)
[2019-10-26 15:26] VITALS: BMI 34.2
--- NOTE | 2019-10-26 16:49 | P.HP ---
Certification for Inpatient With expected LOS: >2 Midnights Practitioner: I am a practitioner with admitting privileges, knowledge of patient current condition, hospital course, and medical plan of care. Services: Services provided to patient in accordance with Admission requirements found in Title 42 Section 412.3 of the Code of Federal Regulations Patient History Date of Service: 10/26/19 Reason for admission: Hematuria History of Present Illness: Mr. García is 84 years old male with a history of diabetes mellitus, renal cause her status post nephrectomy 7 years ago, obesity who presented to the emergency room with complaints of gross hematuria that started this morning. Patient had associated urinary retention and passing blood clots. He states that he was having abnormal urinary symptoms including dysuria, frequent urination and weak stream prior to symptom onset. Patient was evaluated by urologist in ER and was taken to OR for cystoscopy due to CT abdomen finding as well. He currently has a 3 way birch catheter for irrigation in place. He continues to have suprapubic pain. Allergies NKDA Allergy (Uncoded 07/28/16 15:40) Unknown Home Medications: NK [No Home Meds] 10/26/19 - Past Medical/Surgical History Has patient received pneumonia vaccine in the past: Yes Diabetic: Yes -: Diabetes mellitus -: Hypertension -: Nephrectomy -: Tonsillectomy - Social History Smoking Status: Former smoker (Quit 30 years ago) Alcohol use: No CD- Drugs: No Caffeine use: No Place of Residence: Home Review of Systems 10-point ROS is otherwise unremarkable Genitourinary: Dysuria, Frequency, Urgency, Hematuria, Retention Physical Examination - Vital Signs Temperature: 97.0 F Blood Pressure: 114/68 Pulse: 81 Respirations: 17 Pulse Ox (%): 96 - Physical Exam General: Alert, Oriented x3, Obese HEENT: Atraumatic, Normocephalic, Other (poor dentition) Neck: 2+ carotid pulse no bruit Respiratory: Clear to auscultation bilaterally, Normal air movement Cardiovascular: No edema, Normal pulses, Regular rate/rhythm Gastrointestinal: Normal bowel sounds, Hypoactive, Tenderness Musculoskeletal: No swelling, No contractures Integumentary: No rashes, No breakdown Neurological: Normal gait, Normal speech, Normal strength at 5/5 x4 extr Urinary: Birch catheter - Studies Laboratory Data (last 24 hrs) 10/26/19 06:55: Creatinine 2.13 H 10/26/19 06:55: WBC 16.7 H, Hgb 15.5, Hct 46.6, Plt Count 271 10/26/19 06:55: Sodium 141, Potassium 4.9, BUN 31 H, Creatinine 2.19 H, Glucose 164 H, Total Bilirubin 0.7, AST 40 H, ALT 55, Alkaline Phosphatase 114 Imagings Data: CT abdomen IMPRESSION: 1. There is a large high density mass within the superior half of the urinary bladder measuring over 8.4 cm with some scattered internal calcifications. It could be a hematoma or tumor. Recommend further evaluation with cystoscopy. 2. There is been prior RIGHT nephrectomy. There is mild compensatory hypertrophy of the solitary LEFT kidney. There are multiple LEFT renal cysts identified. The largest is medial in the interpolar region measuring 4.2 cm. No left-sided nephrolithiasis. No left-sided hydronephrosis or ureterectasis. 3. No prior studies are available at this time for comparison, and if they can be made available, it would be recommended for better evaluation. 4. There is some patchy subpleural inflammatory appearing opacity at the LEFT lung base, which could be from patchy atelectasis. There is a subpleural RIGHT lower lobe 1 cm pulmonary nodule identified on image 19 of series 201. There is a 1 cm lesion in the subpleural anterior lingula on image 24. These could be pulmonary metastases given their size. For solid pulmonary nodule detected on incomplete chest CT, recommend immediate Chest CT for further evaluation. These guidelines do not apply to immunocompromised patients and patients with cancer. Follow up in patients with significant comorbidities as clinically warranted. For lung cancer screening, adhere to Lung-RADS guidelines. Reference: Radiology. 2017; 284(1):228-43. Assessment and Plan - Plan Mr. García is 84 y/o male who pw gross hematuria. # Gross Hematuria- CT abdomen concerning for mass vs clots. S/p cystoscopy, report pending. 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 - Urologist on consult. - Flomax #H/o DM- patient discontinued ALL his medications form PCP as he was always drowsy with multiple medications that he was taking. He does not recall the meds -BG AC & HS and cover with ISS -Check Hgba1c -Compliance advised #UTI- UA strongly positive. Patient with gross hematuria -Initiate ceftriaxone empirically -Urine culture pending. DVT ppx- SCD Patient is full code. - Advance Directives Does patient have a Living Will: No Does patient have a Durable POA for Healthcare: No
[2019-10-26] MEDS ORDERED: ONDANSETRON 4 MG/2 ML VIAL IV PRN (17:09)
[2019-10-26] MEDS ORDERED: NACL 0.9% IRR SOLN 4,000 ML IRR ONE (18:18)
[2019-10-26] MEDS: ACETAMINOPHEN 500 MG TAB PO PRN (20:39)
[2019-10-26] MEDS: INSULIN -REGULAR HUMAN 50 UNIT/0.5 ML ML SQ SCH (21:00)
[2019-10-27] MEDS: SODIUM CHL 0.9% IRR SOLN 2000 ML IRR SCH ×3 (01:19→06:15)
[2019-10-27] MEDS: ACETAMINOPHEN 500 MG TAB PO PRN ×2 (04:17→11:01)
[2019-10-27 04:19] LABS: Absolute Lymphocytes (CBC) 1.4 K/uL (0.7-4.9); Basophils % 0.5 % (0-1.3); Hematocrit 38.8 % (39.6-49.0); Lymphocytes % 11.8 % (15.3-44.8); MPV 8.5 fL (7.6-11.3); RBC Red Blood Cell Count 4.54 M/uL (4.33-5.43)
[2019-10-27 04:30] LABS: Albumin 3.1 g/dL (3.4-5.0); Bilirubin Total 0.5 mg/dL (0.2-1.0); Potassium 5.3 mmol/L (3.5-5.1); Protein, Total 6.2 g/dL (6.4-8.2)
[2019-10-27] MEDS: INSULIN -REGULAR HUMAN 50 UNIT/0.5 ML ML SQ SCH ×2 (07:30→11:30)
[2019-10-27] MEDS ORDERED: CEFTRIAXONE/SWI 1gm 1 GM/10 ML SYR IVP SCH (09:00)
[2019-10-27 09:31] VITALS: O2SAT 95
--- NOTE | 2019-10-27 12:58 | P.PN ---
Subjective Date of Service: 10/27/19 Chief Complaint: Hematuria Hematuria with clots in birch. still with suprapubic pain. denies any fever overnight. Review of Systems Gastrointestinal: Abdominal Pain Genitourinary: Hematuria Physical Examination - Vital Signs Temperature: 97.5 F Blood Pressure: 136/73 Pulse: 80 Respirations: 17 Pulse Ox (%): 93 - Physical Exam General: Alert, In no apparent distress, Oriented x3 HEENT: Atraumatic, Normocephalic Neck: Supple, 2+ carotid pulse no bruit Respiratory: Clear to auscultation bilaterally, Normal air movement Cardiovascular: No edema, Normal pulses Gastrointestinal: Normal bowel sounds, Soft and benign, Non-distended Musculoskeletal: No clubbing, No swelling Integumentary: No rashes, No breakdown, No significant lesion - Studies Laboratory Tests 10/27/19 10/27/19 03:57 03:57 WBC 12.1 H D Hgb 12.5 L D Hct 38.8 L D Plt Count 203 D Sodium 144 Potassium 5.3 H Chloride 110 H Carbon Dioxide 31 BUN 34 H Creatinine 1.81 H Triglycerides 197 H Imagings Data: CT abdomen IMPRESSION: 1. There is a large high density mass within the superior half of the urinary bladder measuring over 8.4 cm with some scattered internal calcifications. It could be a hematoma or tumor. Recommend further evaluation with cystoscopy. 2. There is been prior RIGHT nephrectomy. There is mild compensatory hypertrophy of the solitary LEFT kidney. There are multiple LEFT renal cysts identified. The largest is medial in the interpolar region measuring 4.2 cm. No left-sided nephrolithiasis. No left-sided hydronephrosis or ureterectasis. 3. No prior studies are available at this time for comparison, and if they can be made available, it would be recommended for better evaluation. 4. There is some patchy subpleural inflammatory appearing opacity at the LEFT lung base, which could be from patchy atelectasis. There is a subpleural RIGHT lower lobe 1 cm pulmonary nodule identified on image 19 of series 201. There is a 1 cm lesion in the subpleural anterior lingula on image 24. These could be pulmonary metastases given their size. For solid pulmonary nodule detected on incomplete chest CT, recommend immediate Chest CT for further evaluation. These guidelines do not apply to immunocompromised patients and patients with cancer. Follow up in patients with significant comorbidities as clinically warranted. For lung cancer screening, adhere to Lung-RADS guidelines. Reference: Radiology. 2017; 284(1):228-43. Assessment & Plan - Code Status/Comfort Care Code Status Assessed: Yes Code Status: Full Code Physician Review: Patient Assessed, Agree with Above Assessment and Plan Physician Review Additional Text: Mr. García is 84 y/o male who pw gross hematuria. # Gross Hematuria- CT abdomen concerning for mass vs clots. S/p cystoscopy, TURP 10/26/19. 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 - Urologist on consult. - Flomax #H/o DM- off meds. -Hgba1c is 5.9, not cw DM. -Dc BG AC & HS and ISS #UTI- UA strongly positive. Patient with gross hematuria -Initiated ceftriaxone empirically -Urine culture pending. #JOHN- post renal etiology - Cr now trending down -Avoid nephrotoxins #Hyperkalemia- 5.3; recheck later today. DVT ppx- SCD Patient is full code.
[2019-10-27 17:00] VITALS: BP 129/76; TEMP 97.4
[2019-10-27 17:00] LABS: Potassium 4.3 mmol/L (3.5-5.1)
--- NOTE | 2019-10-27 17:47 | P.DS ---
Admission Date: 10/26/19 Discharge Date: 10/27/19 Disposition: ROUTINE DISCHARGE Discharge Condition: GOOD Reason for Admission: Hematuria Procedures: Cystoscopy, clot evacuation with TURP Brief History of Present Illness: Mr. 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 Hospital Course: Mr. García was evaluated by urologist and taken to the OR where he underwent cystoscopy, clot evacuation & TURP. Turpin was placed and irrigation continued for 24 hours. Patient had post renal JOHN on presentation which has improved as creatinine is trending down. 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 He will follow up with PCP and urologist for further work up and treatment. He remained stable for discharge. Vital Signs/Physical Exam: Temp Pulse Resp BP Pulse Ox 97.4 F 79 17 129/76 95 10/27/19 16:00 10/27/19 16:00 10/27/19 16:00 10/27/19 16:00 10/27/19 16:00 Laboratory Data at Discharge: WBC 12.1 K/uL (4.3-10.9) H D 10/27/19 03:57 Hgb 12.5 g/dL (13.6-17.9) L D 10/27/19 03:57 Hct 38.8 % (39.6-49.0) L D 10/27/19 03:57 Plt Count 203 K/uL (152-406) D 10/27/19 03:57 Sodium 141 mmol/L (136-145) 10/27/19 16:28 Potassium 4.3 mmol/L (3.5-5.1) 10/27/19 16:28 BUN 32 mg/dL (7-18) H 10/27/19 16:28 Creatinine 1.56 mg/dL (0.55-1.3) H 10/27/19 16:28 Glucose 96 mg/dL (74-106) 10/27/19 16:28 Total Bilirubin 0.5 mg/dL (0.2-1.0) 10/27/19 03:57 AST 29 U/L (15-37) 10/27/19 03:57 ALT 41 U/L (12-78) 10/27/19 03:57 Alkaline Phosphatase 92 U/L (45-117) 10/27/19 03:57 Triglycerides 197 mg/dL (<150) H 10/27/19 03:57 Cholesterol 132 mg/dL (<200) 10/27/19 03:57 HDL Cholesterol 33 mg/dL (40-60) L 10/27/19 03:57 Cholesterol/HDL Ratio 4.00 10/27/19 03:57 Imagings Data: CT abdomen IMPRESSION: 1. There is a large high density mass within the superior half of the urinary bladder measuring over 8.4 cm with some scattered internal calcifications. It could be a hematoma or tumor. Recommend further evaluation with cystoscopy. 2. There is been prior RIGHT nephrectomy. There is mild compensatory hypertrophy of the solitary LEFT kidney. There are multiple LEFT renal cysts identified. The largest is medial in the interpolar region measuring 4.2 cm. No left-sided nephrolithiasis. No left-sided hydronephrosis or ureterectasis. 3. No prior studies are available at this time for comparison, and if they can be made available, it would be recommended for better evaluation. 4. There is some patchy subpleural inflammatory appearing opacity at the LEFT lung base, which could be from patchy atelectasis. There is a subpleural RIGHT lower lobe 1 cm pulmonary nodule identified on image 19 of series 201. There is a 1 cm lesion in the subpleural anterior lingula on image 24. These could be pulmonary metastases given their size. For solid pulmonary nodule detected on incomplete chest CT, recommend immediate Chest CT for further evaluation. These guidelines do not apply to immunocompromised patients and patients with cancer. Follow up in patients with significant comorbidities as clinically warranted. For lung cancer screening, adhere to Lung-RADS guidelines. Reference: Radiology. 2017; 284(1):228-43. Home Medications: NK [No Home Meds] 10/26/19 Diet: Regular Activity: Ad drea Followup: Júnior Mitchell MD [ACTIVE - CAN ADMIT] - 1 Week (call to schedule appointment )
--- NOTE | 2019-10-28 12:18 | PN ---
The patient is doing well. Return of CBI, urine remains pretty clear, so I went ahead and removed hi s Turpin catheter. The patient was sent home. Prescriptions were already in the chart. He will foll ow up with me in 1 week. KERRIE/GAGANDEEP Voice ID: [id number] Report ID: [id number]
== END 2019-10-27 18:16 | disposition home or self-care (01) | DRG 713 ==
LOC: ER 06:08 → ERHOLD 12:36 → 4TH 13:25
PROVIDERS: ADMIT Hospitalist; ATTEND Hospitalist
PROC: 0VT08ZZ Resection of Prostate, Via Natural or Artificial Opening Endoscopic (ICD-10-PCS; principal; 2019-10-26 12:30)
PROC: 0TJB8ZZ Inspection of Bladder, Via Natural or Artificial Opening Endoscopic (ICD-10-PCS; 2019-10-26 12:30)
DX: N40.1 Benign prostatic hyperplasia with lower urinary tract symptoms (principal); N39.0 Urinary tract infection, site not specified; N17.9 Acute kidney failure, unspecified; N13.8 Other obstructive and reflux uropathy; R31.0 Gross hematuria; N32.89 Other specified disorders of bladder; I10 Essential (primary) hypertension; E11.9 Type 2 diabetes mellitus without complications; E66.9 Obesity, unspecified; Z68.35 Body mass index [BMI] 35.0-35.9, adult; E87.5 Hyperkalemia; Z87.891 Personal history of nicotine dependence; Z90.5 Acquired absence of kidney
CPT/HCPCS: 36415; 74176; 76377; 80048; 80053; 80061; 80076; 81001; 82947; 83036; 84443; 85025; 87086; 87088; 88300; 88305; 96365; 96375; 97116; 97161; 99285; J0696; J2405; J2704; J3010; J7120

== ENCOUNTER 2020-02-21 13:41 | Emergency (ER) | payer OTHER ==
[2020-02-21 17:44] VITALS: TEMP 97.4
[2020-02-21 17:47] VITALS: BP 139/50; O2SAT 96
== END 2020-02-21 17:37 | disposition home or self-care (01) ==
LOC: ER 13:41
DX: M25.531 Pain in right wrist (principal); I10 Essential (primary) hypertension
CPT/HCPCS: 85025; 36415; 84550; 80053; 73110; 96375; 96374; 99284; J2270; J2930; J2405

== ENCOUNTER 2022-10-22 15:54 | Emergency (ER) | payer OTHER ==
--- OUTSIDE RECORDS SUMMARY | 2022-10-22 15:58 | XMS REPORT | Continuity of Care Document ---
:1935 [address] [facility] [place], [place] t Address [address] Gonzalez [address] [place] [id number] Care Team Providers Name Role Phone Unavailable Unavailable Unavailable Payers Payer Name Policy Type Policy Number Effective Date Expiration Date S kassidy [facility] [id number] (MEDICARE 00:00:00 REPLACEMENT HMO) Problems This patient has no known problems. Allergies, Adverse Reactions, Alerts This patient has no known allergies or adverse reactions. Medications This patient has no known medications. Procedures This patient has no known procedures. Encounters Start End Encounter Admission Attending Care Care Encounter Source Date/Time Date/Time Type Type Clinicians Facility Department ID 2022-09-29 2022-09-29 Outpatient [facility] [id number] [facility] 00:00:00 00:00:00 [id number] [facility] Results This patient has no known results.
--- NOTE | 2022-10-22 16:55 | ER ---
Nurse's Notes [facility] Veronica Name: Steve García Age: 87 yrs Sex: Male : 1935 Arrival Date: 10/22/2022 Time: 15:58 Bed 25 Private MD: Diagnosis: Cellulitis of right upper limb Presentation: 10/22 16:40 Chief complaint: Patient states: open wound to Right wrist for about 6-7 years. vg1 Coronavirus screen: Vaccine status: Patient reports being unvaccinated. Client denies travel out of the [place] in the last 14 days. Ebola Screen: Patient negative for fever greater than or equal to 101.5 degrees Fahrenheit, and additional compatible Ebola Virus Disease symptoms. Initial Sepsis Screen: Does the patient meet any 2 criteria? No. Patient's initial sepsis screen is negative. Does the patient have a suspected source of infection? No. Patient's initial sepsis screen is negative. Risk Assessment: Do you want to hurt yourself or someone else? Patient reports no desire to harm self or others. Onset of symptoms was October 22, 2022. 16:40 Method Of Arrival: Ambulatory vg1 16:40 Acuity: DEANNE 3 vg1 Triage Assessment: 16:51 General: Appears uncomfortable, Behavior is calm, cooperative. Pain: Complains of pain vg1 in Right wrist Pain currently is 10 out of 10 on a pain scale. Historical: - Allergies: 16:51 NKDA; vg1 - PMHx: 16:51 Hyperlipidemia; Hypertension; Kidney stones; vg1 - Immunization history:: Client reports having NOT received the Covid vaccine. - Social history:: Smoking status: Patient/guardian denies using tobacco, but has a distant history of tobacco abuse. - Family history:: not pertinent. - Hospitalizations: : No recent hospitalization is reported. Screenin:02 Abuse screen: Denies threats or abuse. Nutritional screening: No deficits noted. em6 Tuberculosis screening: No symptoms or risk factors identified. Fall Risk Total Perez Fall Scale indicates No Risk (0-24 pts). Assessment: 16:59 General: Appears in no apparent distress. Behavior is cooperative. Pain: Complains of em6 pain in right arm. Neuro: Alejo Agitation-Sedation Scale (RASS): 0 - Alert and Calm. Cardiovascular: Capillary refill < 3 seconds Patient's skin is warm and dry. Respiratory: Airway is patent Respiratory effort is even, unlabored, Respiratory pattern is regular, symmetrical. GI: No signs and/or symptoms were reported involving the gastrointestinal system. : No signs and/or symptoms were reported regarding the genitourinary system. EENT: No signs and/or symptoms were reported regarding the EENT system. Derm: Wound noted left arm Wound is right wound to the inner wrist. no drainage no redness noted. skin is dry. Musculoskeletal: Circulation, motion, and sensation intact. Capillary refill < 3 seconds, Range of motion: intact in all extremities. Vital Signs: 16:40 BP 120 / 85; Pulse 68; Resp 15; Temp 98; Pulse Ox 97% ; Weight 99.79 kg; Height 5 ft. 8 vg1 in. (172.72 cm); Pain 10/10; 16:40 Body Mass Index 33.45 (99.79 kg, 172.72 cm) vg1 ED Course: 15:58 Patient arrived in ED. rg4 16:37 Holland Ricketts MD is Attending Physician. rn 16:51 Triage completed. vg1 16:51 Arm band placed on. vg1 17:02 Bed in low position. Call light in reach. Side rails up X 1. Pulse ox on. NIBP on. em6 17:02 No provider procedures requiring assistance completed. Patient did not have IV access em6 during this emergency room visit. 17:10 Kriss Osuna, RN is Primary Nurse. em6 Administered Medications: No medications were administered Medication: 17:02 VIS not applicable for this client. em6 Outcome: 16:54 Discharge ordered by . rn 17:18 Discharged to home ambulatory. em6 17:18 Condition: stable 17:18 Discharge instructions given to patient, Instructed on discharge instructions, follow up and referral plans. medication usage, Demonstrated understanding of instructions, follow-up care, medications, Prescriptions given X 2. 17:19 Patient left the ED. em6 Signatures: Holland Ricketts MD MD rn Garcia, Rubi rg4 Dee Dee Jane RN RN 1 Kriss Osuna RN RN em6
--- NOTE | 2022-10-22 16:55 | EDPHYS ---
Physician Documentation [facility] Veronica Name: Steve García Age: 87 yrs Sex: Male : 1935 Arrival Date: 10/22/2022 Time: 15:58 Bed 25 Private MD: ED Physician Holland Ricketts HPI: 10/22 16:46 This 87 yrs old Male presents to ER via Unassigned with complaints of Skin rn Problem. 16:46 The patient presents with cellulitis of the right arm. Onset: The symptoms/episode rn began/occurred at an unknown time. Possible cause(s): unknown. Associated signs and symptoms: Pertinent positives: erythema, Pertinent negatives: fever. Modifying factors: the symptoms are alleviated by nothing, the symptoms are aggravated by touching. Severity of symptoms: At their worst the symptoms were mild. 16:49 The patient has experienced similar episodes in the past, chronically. Pt reports rn approx 7 years of "skin problem" of right wrist, reports always discolored but sometimes opens up and hurts. States has seen multiple doctors for this, unclear diagnosis, never told might be cancer. No fever. No trauma. No rash or discoloration elsewhere. . Historical: - Allergies: 16:51 NKDA; vg1 - PMHx: 16:51 Hyperlipidemia; Hypertension; Kidney stones; vg1 - Immunization history:: Client reports having NOT received the Covid vaccine. - Social history:: Smoking status: Patient/guardian denies using tobacco, but has a distant history of tobacco abuse. - Family history:: not pertinent. - Hospitalizations: : No recent hospitalization is reported. ROS: 16:49 Constitutional: Negative for fever, chills, and weight loss, Eyes: Negative for injury, rn pain, redness, and discharge, Neck: Negative for injury, pain, and swelling, Cardiovascular: Negative for chest pain, palpitations, and edema, Respiratory: Negative for shortness of breath, cough, wheezing, and pleuritic chest pain, Abdomen/GI: Negative for abdominal pain, nausea, vomiting, diarrhea, and constipation, Back: Negative for injury and pain, MS/Extremity: Negative for injury and deformity, Skin: + skin discoloration and open wound Neuro: Negative for headache, weakness, numbness, tingling, and seizure. Exam: 16:49 Constitutional: This is a well developed, well nourished patient who is awake, alert, rn and in no acute distress. Head/Face: Normocephalic, atraumatic. Cardiovascular: Regular rate and rhythm. No pulse deficits. Respiratory: No increased work of breathing, no retractions or nasal flaring. Skin: Warm, dry, right distal forearm and volar wrist with dark discoloration that has chronic appearance, and open dry/cracked wound that is approx 3 cm diameter, no streaking, no warmth, no fluctuance, no purulence. MS/ Extremity: Pulses equal, no cyanosis. Neurovascular intact. Full, normal range of motion. Equal circumference. Strong right radial pulse. Vital Signs: 16:40 BP 120 / 85; Pulse 68; Resp 15; Temp 98; Pulse Ox 97% ; Weight 99.79 kg; Height 5 ft. 8 vg1 in. (172.72 cm); Pain 10/10; 16:40 Body Mass Index 33.45 (99.79 kg, 172.72 cm) vg1 MDM: 16:37 Patient medically screened. rn 16:49 Differential diagnosis: cellulitis, skin cancer, chronic skin changes. Data reviewed: rn vital signs, nurses notes, and as a result, I will discharge patient. Counseling: I had a detailed discussion with the patient and/or guardian regarding: the historical points, exam findings, and any diagnostic results supporting the discharge/admit diagnosis, the need for outpatient follow up, to return to the emergency department if symptoms worsen or persist or if there are any questions or concerns that arise at home. Special discussion: I discussed with the patient/guardian in detail that at this point there is no indication for admission to the hospital. It is understood, however, that if the symptoms persist or worsen the patient needs to return immediately for re-evaluation. Based on the history and exam findings, there is no indication for further emergent testing or inpatient evaluation. I discussed with the patient/guardian the need to see the tour coordinator for further evaluation of the symptoms. ED course: Told patient needs to f/u with dermatology given chronic skin changes and open wound that has been present for years. Needs to rule out malignancy. . 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
[2022-10-22 21:30] VITALS: BP 120/85; TEMP 98; O2SAT 97
== END 2022-10-22 17:19 | disposition home or self-care (01) ==
LOC: ER 15:54
DX: L03.113 Cellulitis of right upper limb (principal); I10 Essential (primary) hypertension
CPT/HCPCS: 99283

== ENCOUNTER 2022-12-03 13:09 | Emergency (ER) | payer OTHER ==
--- OUTSIDE RECORDS SUMMARY | 2022-12-03 13:11 | XMS REPORT | Continuity of Care Document ---
:1935 Author Organization [facility] t Address [address] Gonzalez [address] [place] [id number] Care Team Providers Name Role Phone Unavailable Unavailable Unavailable Payers Payer Name Policy Type Policy Number Effective Date Expiration Date S kassidy [facility] [id number] (MEDICARE 00:00:00 REPLACEMENT HMO) Problems This patient has no known problems. Allergies, Adverse Reactions, Alerts This patient has no known allergies or adverse reactions. Medications This patient has no known medications. Procedures This patient has no known procedures. Encounters Start End Encounter Admission Attending Care Care Encounter Source Date/Time Date/Time Type Type Clinicians Facility Department ID 2022-09-29 2022-09-29 Outpatient [facility] [id number] [facility] 00:00:00 00:00:00 [id number] [facility] Results This patient has no known results.
[2022-12-03 14:57] LABS: Absolute Lymphocytes (CBC) 1.4 K/uL (0.7-4.9); Hematocrit 45.1 % (39.6-49.0); Lymphocytes % 15.3 % (15.3-44.8); MCV 83.3 fL (80-100); RBC Red Blood Cell Count 5.42 M/uL (4.33-5.43)
[2022-12-03] MEDS ORDERED: METHYLPREDNISOLONE 125 MG INJ ONE (14:57)
[2022-12-03] MEDS ORDERED: KETOROLAC 30 MG/ML INJ ONE (14:57)
[2022-12-03 15:16] LABS: Albumin 3.6 g/dL (3.4-5.0); Bilirubin Direct 0.2 mg/dL (0-0.2); Bilirubin Total 0.6 mg/dL (0.2-1.0); Potassium 4.1 mmol/L (3.5-5.1); Protein, Total 7.1 g/dL (6.4-8.2); Troponin High Sensitivity 8.4 pg/mL (<58.9)
--- NOTE | 2022-12-03 17:57 | ER ---
Nurse's Notes [facility] Veronica Name: Steve García Age: 87 yrs Sex: Male : 1935 Arrival Date: 12/03/2022 Time: 13:13 Bed 15 Private MD: Diagnosis: Cellulitis of left upper limb;Cellulitis of right upper limb Presentation: 12/03 13:44 Chief complaint: Patient states: skin breakdown to keyonna inner elbow, my feet are hurting iw and when I walk my legs get swollen , has been going for past 6-7 years , my left arm is worse and I went to the MD and they told me to come here. Coronavirus screen: At this time, the client does not indicate any symptoms associated with coronavirus-19. Ebola Screen: Patient negative for fever greater than or equal to 101.5 degrees Fahrenheit, and additional compatible Ebola Virus Disease symptoms Patient denies exposure to infectious person. Patient denies travel to an Ebola-affected area in the 21 days before illness onset. No symptoms or risks identified at this time. Initial Sepsis Screen: Does the patient meet any 2 criteria? No. Patient's initial sepsis screen is negative. Does the patient have a suspected source of infection? No. Patient's initial sepsis screen is negative. Risk Assessment: Do you want to hurt yourself or someone else? Patient reports no desire to harm self or others. Onset of symptoms. 13:44 Method Of Arrival: Ambulatory 13:44 Acuity: DEANNE 3 iw Historical: - Allergies: 13:47 NKDA; iw - PMHx: 13:47 Hyperlipidemia; Hypertension; Kidney stones; iw - Immunization history:: Adult Immunizations unknown. - Social history:: Smoking status: Patient denies any tobacco usage or history of. Screenin:30 [facility] ED Fall Risk Assessment (Adult) History of falling in the last 3 months, ko1 including since admission No falls in past 3 months (0 pts) Confusion or Disorientation No (0 pts) Intoxicated or Sedated No (0 pts) Impaired Gait No (0 pts) Mobility Assist Device Used No (0 pt) Altered Elimination No (0 pt) Score/Fall Risk Level 0 - 2 = Low Risk Oriented to surroundings, Maintained a safe environment, Educated pt \T\ family on fall prevention, incl call for assistance when getting out of bed, Assessed \T\ reinforced patient's understanding of fall precautions, Provided non-skid footwear, Hourly rounding (assess needs \T\ fall precautionary measures) done, Used ambulatory aids as needed (educated on \T\ assisted with), Used gait belt as appropriate. Abuse screen: Denies threats or abuse. Denies injuries from another. Nutritional screening: No deficits noted. Tuberculosis screening: No symptoms or risk factors identified. Assessment: 14:30 General: Appears in no apparent distress. uncomfortable, Behavior is calm, cooperative, ko1 appropriate for age. Pain: Denies pain. Complains of pain in left antecubital area. Neuro: No deficits noted. Cardiovascular: No deficits noted. Respiratory: No deficits noted. GI: No deficits noted. : No deficits noted. EENT: No deficits noted. Derm: Skin is fragile, has lesions on bilateral AC areas, red, cracked Skin is red. Musculoskeletal: No deficits noted. Vital Signs: 13:44 BP 133 / 110; Pulse 67; Resp 16; Temp 98.2; Pulse Ox 99% on R/A; Weight 99.79 kg; iw Height 5 ft. 8 in. (172.72 cm); 14:30 BP 138 / 98; Pulse 68; Resp 18; Pulse Ox 99% ; ko1 17:54 BP 124 / 86; Pulse 72; Pulse Ox 99% ; ko1 13:44 Body Mass Index 33.45 (99.79 kg, 172.72 cm) iw ED Course: 13:13 Patient arrived in ED. rg4 13:22 Kamar Kulkarni MD is Attending Physician. kdr 13:47 Triage completed. iw 13:47 Arm band placed on. iw 13:53 Collette Hopson, RN is Primary Nurse. ko1 14:30 Patient has correct armband on for positive identification. Placed in gown. Bed in low ko1 position. Call light in reach. Side rails up X2. Client placed on continuous cardiac and pulse oximetry monitoring. NIBP monitoring applied. hospital monitor on. Door closed. Noise minimized. Lights dimmed. Warm blanket given. 14:51 Basic Metabolic Panel Sent. ko1 14:51 CBC with Diff Sent. ko1 14:51 LFT's Sent. ko1 14:51 NT PRO-BNP Sent. ko1 14:51 Troponin HS Sent. ko1 15:05 Inserted saline lock: 22 gauge in right wrist, using aseptic technique. Blood collected.ko1 18:30 No provider procedures requiring assistance completed. IV discontinued, intact, ko1 bleeding controlled, No redness/swelling at site. Pressure dressing applied. Administered Medications: 14:55 Drug: SOLU-Medrol (methylPrednisoLONE) 125 mg Route: IVP; Site: right hand; ko1 14:55 Drug: Ketorolac 15 mg Route: IVP; Site: right hand; ko1 18:08 Drug: Cephalexin 500 mg Route: PO; ko1 Medication: 18:30 VIS not applicable for this client. ko1 Outcome: 17:57 Discharge ordered by . kdr 18:30 Discharged to home ambulatory. ko1 18:30 Condition: good 18:30 Discharge instructions given to patient, Instructed on discharge instructions, follow up and referral plans. medication usage, Demonstrated understanding of instructions, follow-up care, medications, wound care, Prescriptions given X 3. 18:32 Patient left the ED. ko1 Signatures: Kamar Kulkarni MD MD kdr Krys Dyer, Jennifer Kingsley RN 4 Collette Hopson, JULIO CESAR RN ko1
--- NOTE | 2022-12-03 17:57 | EDPHYS ---
Physician Documentation [facility] Name: Steve García Age: 87 yrs Sex: Male : 1935 Arrival Date: 12/03/2022 Time: 13:13 Bed 15 Private MD: ED Physician Kamar Kulkarni HPI: 12/03 15:22 This 87 yrs old Male presents to ER via Ambulatory with complaints of Pain All kdr Over. 15:22 Patient is a poor historian but presents to the ED complaining of skin issues on his kdr upper extremities. Primarily in the antecubital fossa area of both arms. In these areas he seems to have some skin breakdown in either cellulitis and/or allergic reaction. His left arm is somewhat worse than the right 1. His lower extremities seem to be more or less unaffected in the same manner. He states that he recently went to the [place] and they told him to come to the hospital here. The symptoms may have been going on for as much is 6 to 7 years.. Onset: The symptoms/episode began/occurred at an unknown time. Severity of symptoms: At their worst the symptoms were mild moderate just prior to arrival, in the emergency department the symptoms are unchanged. The patient has experienced similar episodes in the past, chronically. The patient has been recently seen by a physician: the patient's primary care provider, The patient goes to the [place] for some of his care. Historical: - Allergies: 13:47 NKDA; iw - PMHx: 13:47 Hyperlipidemia; Hypertension; Kidney stones; iw - Immunization history:: Adult Immunizations unknown. - Social history:: Smoking status: Patient denies any tobacco usage or history of. ROS: 15:22 Constitutional: Negative for fever, chills, and weight loss, Eyes: Negative for injury, kdr pain, redness, and discharge, Neck: Negative for injury, pain, and swelling, Cardiovascular: Negative for chest pain, palpitations, and edema, Respiratory: Negative for shortness of breath, cough, wheezing, and pleuritic chest pain, Abdomen/GI: Negative for abdominal pain, nausea, vomiting, diarrhea, and constipation, Back: Negative for injury and pain, : Negative for injury, bleeding, discharge, and swelling, Neuro: Negative for headache, weakness, numbness, tingling, and seizure activity. Psych: Negative for depression, anxiety, suicide ideation, homicidal ideation, and hallucinations, Allergy/Immunology: Negative for hives, rash, and allergies, Endocrine: Negative for neck swelling, polydipsia, polyuria, polyphagia, and marked weight changes, Hematologic/Lymphatic: Negative for swollen nodes, abnormal bleeding, and unusual bruising. 15:22 MS/extremity: Positive for injury or acute deformity. Exam: 16:12 Constitutional: This is a well developed, well nourished patient who is awake, alert, kdr and in no acute distress. Head/Face: Normocephalic, atraumatic. Eyes: Pupils equal round and reactive to light, extra-ocular motions intact. Lids and lashes normal. Conjunctiva and sclera are non-icteric and not injected. Cornea within normal limits. Periorbital areas with no swelling, redness, or edema. Neck: Trachea midline, no thyromegaly or masses palpated, and no cervical lymphadenopathy. Supple, full range of motion without nuchal rigidity, or vertebral point tenderness. No Meningismus. Chest/axilla: Normal chest wall appearance and motion. Nontender with no deformity. No lesions are appreciated. Cardiovascular: Regular rate and rhythm with a normal S1 and S2. No gallops, murmurs, or rubs. Normal PMI, no JVD. No pulse deficits. Respiratory: Lungs have equal breath sounds bilaterally, clear to auscultation and percussion. No rales, rhonchi or wheezes noted. No increased work of breathing, no retractions or nasal flaring. Abdomen/GI: Soft, non-tender, with normal bowel sounds. No distension or tympany. No guarding or rebound. No evidence of tenderness throughout. Back: No spinal tenderness. No costovertebral tenderness. Full range of motion. MS/ Extremity: Pulses equal, no cyanosis. Neurovascular intact. Full, normal range of motion. Neuro: Awake and alert, GCS 15, oriented to person, place, time, and situation. Cranial nerves II-XII grossly intact. Motor strength 5/5 in all extremities. Sensory grossly intact. Cerebellar exam normal. Normal gait. Psych: Awake, alert, with orientation to person, place and time. Behavior, mood, and affect are within normal limits. 16:12 Skin: cellulitis, that is mild, induration, that is mild is noted, that is moderate is noted, rash a moderate rash is noted. Vital Signs: 13:44 BP 133 / 110; Pulse 67; Resp 16; Temp 98.2; Pulse Ox 99% on R/A; Weight 99.79 kg; iw Height 5 ft. 8 in. (172.72 cm); 14:30 BP 138 / 98; Pulse 68; Resp 18; Pulse Ox 99% ; ko1 17:54 BP 124 / 86; Pulse 72; Pulse Ox 99% ; ko1 13:44 Body Mass Index 33.45 (99.79 kg, 172.72 cm) iw MDM: 16:12 Data reviewed: vital signs, nurses notes, lab test result(s), radiologic studies. kdr Consideration of Admission/Observation Patient was admitted/placed on observation. Escalation of care including admission/observation considered. Management of patient was discussed with the following:. 17:57 Patient medically screened. [facility] 12/03 14:29 Order name: Basic Metabolic Panel; Complete Time: 17:41 [facility] 12/03 14:29 Order name: CBC with Diff; Complete Time: 17:41 [facility] 12/03 14:29 Order name: LFT's; Complete Time: 17:41 [facility] 12/03 14:29 Order name: NT PRO-BNP; Complete Time: 17:41 [facility] 12/03 14:29 Order name: Troponin HS; Complete Time: 17:41 [facility] 12/03 14:29 Order name: IV Saline Lock; Complete Time: 14:51 [facility] 12/03 14:29 Order name: Labs collected and sent; Complete Time: 14:51 [facility] 12/03 14:29 Order name: O2 Per Protocol; Complete Time: 14:31 [facility] 12/03 14:29 Order name: O2 Sat Monitoring; Complete Time: 14:31 kdr Administered Medications: 14:55 Drug: SOLU-Medrol (methylPrednisoLONE) 125 mg Route: IVP; Site: right hand; ko1 14:55 Drug: Ketorolac 15 mg Route: IVP; Site: right hand; ko1 18:08 Drug: Cephalexin 500 mg Route: PO; ko1 Disposition Summary: 12/03/22 17:57 Discharge Ordered Location: Home kdr Problem: an acute exacerbation kdr Symptoms: have improved kdr Condition: Stable kdr Diagnosis - Cellulitis of left upper limb kdr - Cellulitis of right upper limb kdr Followup: kdr - With: Private Physician - When: 2 - 3 days - Reason: If symptoms return, Further diagnostic work-up, Recheck today's complaints, Continuance of care, Re-evaluation by your physician Discharge Instructions: - Discharge Summary Sheet kdr - Cellulitis, Adult, [id number] kdr Forms: - Medication Reconciliation Form kdr - Thank You Letter kdr - Antibiotic Education kdr Prescriptions: - Cephalexin 500 mg Oral Capsule - take 1 capsule by ORAL route every 8 hours for 10 days; 30 capsule; Refills: 0, kdr Product Selection Permitted - Prednisone 20 mg Oral Tablet - take 1 tablet by ORAL route once daily for 5 days; 5 tablet; Refills: 0, kdr Product Selection Permitted - Ibuprofen 600 mg Oral Tablet - take 1 tablet by ORAL route every 6 hours As needed take with food; 15 tablet; kdr Refills: 0, Product Selection Permitted Signatures: Dispatcher [employer] Kamar Garrison MD MD kdr Krys Dyer RN RN iw Collette Hopson RN RN ko1
[2022-12-03] MEDS ORDERED: CEPHALEXIN 250 MG CAP ONE (18:09)
[2022-12-03 18:42] VITALS: TEMP 98.2; O2SAT 99
[2022-12-03 19:14] VITALS: BP 124/86
== END 2022-12-03 18:32 | disposition home or self-care (01) ==
LOC: ER 13:09
DX: L03.114 Cellulitis of left upper limb (principal); L03.113 Cellulitis of right upper limb; I10 Essential (primary) hypertension
CPT/HCPCS: 85025; 80048; 36415; 80076; 84484; 83880; J2930; 96374; 96375; 99284

== ENCOUNTER 2022-12-19 18:10 | Emergency (ER) | payer MEDICARE ==
--- OUTSIDE RECORDS SUMMARY | 2022-12-19 18:13 | XMS REPORT | Continuity of Care Document ---
:1935 [address] [facility] Address [address] [place] [id number] Care Team Providers Name Role Phone Unavailable Unavailable Unavailable Payers Payer Name Policy Type Policy Number Effective Date Expiration Date S kassidy [facility] [id number] (MEDICARE 00:00:00 REPLACEMENT HMO) Problems This patient has no known problems. Allergies, Adverse Reactions, Alerts This patient has no known allergies or adverse reactions. Medications This patient has no known medications. Procedures This patient has no known procedures. Encounters Start End Encounter Admission Attending Care Care Encounter Source Date/Time Date/Time Type Type Clinicians Facility Department ID 2022-09-29 2022-09-29 Outpatient [facility] [id number] [facility] 00:00:00 00:00:00 [id number] Results This patient has no known results.
--- NOTE | 2022-12-19 18:48 | EDPHYS ---
Physician Documentation [facility] Name: Steve García Age: 87 yrs Sex: Male : 1935 Arrival Date: 12/19/2022 Time: 18:15 Bed IW5 Private MD: ED Physician Holland Ricketts HPI: 12/19 18:44 This 87 yrs old Male presents to ER via Ambulatory with complaints of rash in rn groin. 18:44 The patient's rash thought to be caused by an unknown cause. The rash is located on the rn groin. The rash can be described as erythematous, macular. Onset: The symptoms/episode began/occurred 2 week(s) ago. Associated signs and symptoms: Pertinent positives: itching, Pertinent negatives: fever. Severity of symptoms: At their worst the symptoms were moderate in the emergency department the symptoms are unchanged. The patient has not experienced similar symptoms in the past. The patient has not recently seen a physician. Patient reports bilateral groin pain and rash for 2 weeks, no trauma. No fever. Historical: - Allergies: 18:21 NKDA; ko1 - PMHx: 18:21 Hyperlipidemia; Hypertension; Kidney stones; ko1 - Immunization history:: Adult Immunizations unknown. - Social history:: Smoking status: Patient denies any tobacco usage or history of. - Family history:: not pertinent. - Hospitalizations: : No recent hospitalization is reported. ROS: 18:44 Constitutional: Negative for fever, chills, and weight loss, Eyes: Negative for injury, rn pain, redness, and discharge, Cardiovascular: Negative for chest pain, palpitations, and edema, Respiratory: Negative for shortness of breath, cough, wheezing, and pleuritic chest pain, Abdomen/GI: Negative for abdominal pain, nausea, vomiting, diarrhea, and constipation, Back: Negative for injury and pain, : + groin rash and itching MS/Extremity: Negative for injury and deformity, Neuro: Negative for headache, weakness, numbness, tingling, and seizure. Exam: 18:44 Constitutional: This is a well developed, well nourished patient who is awake, alert, rn and in no acute distress. Abdomen/GI: soft, non-tender Male : + bilateral groin with macular moist erythematous rash, no bullae, no pustules, no fluctuance, no cyanosis or evidence of gangrene, no discoloration of scrotum. No testicular tenderness. Vital Signs: 18:19 BP 149 / 90; Pulse 109; Resp 20; Temp 98.2; Pulse Ox 95% ; Weight 99.79 kg; Height 5 ko1 ft. 8 in. (172.72 cm); Pain 8/10; 18:19 Body Mass Index 33.45 (99.79 kg, 172.72 cm) ko1 MDM: 18:43 Patient medically screened. rn 18:44 Differential diagnosis: fungal rash, cellulitis. Data reviewed: vital signs, nurses rn notes, and as a result, I will discharge patient. Counseling: I had a detailed discussion with the patient and/or guardian regarding: the historical points, exam findings, and any diagnostic results supporting the discharge/admit diagnosis, the need for outpatient follow up, to return to the emergency department if symptoms worsen or persist or if there are any questions or concerns that arise at home. Special discussion: I discussed with the patient/guardian in detail that at this point there is no indication for admission to the hospital. It is understood, however, that if the symptoms persist or worsen the patient needs to return immediately for re-evaluation. Administered Medications: No medications were administered Disposition Summary: 12/19/22 18:48 Discharge Ordered Location: Home rn Problem: an ongoing problem rn Symptoms: have improved rn Condition: Stable rn Diagnosis - Rash and other nonspecific skin eruption rn - Cellulitis of groin rn Followup: rn - With: Private Physician - When: As needed - Reason: Recheck today's complaints, Re-evaluation by your physician Discharge Instructions: - Discharge Summary Sheet rn - Rash, Adult rn Forms: - Medication Reconciliation Form rn - Thank You Letter rn - Antibiotic oil burner repairer - Prescription Opioid Use rn Prescriptions: - Fluconazole 150 mg Oral Tablet - take 1 tablet by ORAL route once daily for 3 days; 3 tablet; Refills: 0, rn Product Selection Permitted - Nystatin-Triamcinolone 100,000-0.1 unit/g-% Topical Cream - apply 1 application by TOPICAL route 2 times per day; 1 tube; Refills: 0, rn Product Selection Permitted - Bactrim DS 800-160 mg Oral Tablet - take 1 tablet by ORAL route every 12 hours for 10 days; 20 tablet; Refills: 0, rn Product Selection Permitted Signatures: Holland Ricketts MD MD rn Oliver, Kathy, JULIO CESAR RN ko1
--- NOTE | 2022-12-19 18:48 | ER ---
Nurse's Notes [facility] [place] Name: Steve García Age: 87 yrs Sex: Male : 1935 Arrival Date: 12/19/2022 Time: 18:15 Bed IW5 Private MD: Diagnosis: Rash and other nonspecific skin eruption;Cellulitis of groin Presentation: 12/19 18:19 Chief complaint: Patient states: groin and penis is hurting for about 2 weeks and its ko1 getting worse. I just [facility] for [facility] Coronavirus screen: At this time, the client does not indicate any symptoms associated with coronavirus-19. Ebola Screen: No symptoms or risks identified at this time. Initial Sepsis Screen: Does the patient meet any 2 criteria? No. Patient's initial sepsis screen is negative. Does the patient have a suspected source of infection? No. Patient's initial sepsis screen is negative. Risk Assessment: Do you want to hurt yourself or someone else? Patient reports no desire to harm self or others. Onset of symptoms is unknown. 18:19 Method Of Arrival: Ambulatory ko1 18:19 Acuity: DEANNE 3 ko1 Triage Assessment: 18:21 General: Appears in no apparent distress. uncomfortable, Behavior is calm, cooperative, ko1 appropriate for age. Pain: Complains of pain in groin. Historical: - Allergies: 18:21 NKDA; ko1 - PMHx: 18:21 Hyperlipidemia; Hypertension; Kidney stones; ko1 - Immunization history:: Adult Immunizations unknown. - Social history:: Smoking status: Patient denies any tobacco usage or history of. - Family history:: not pertinent. - Hospitalizations: : No recent hospitalization is reported. Screenin:57 [facility] ED Fall Risk Assessment (Adult) History of falling in the last 3 months, ko1 including since admission No falls in past 3 months (0 pts) Confusion or Disorientation No (0 pts) Intoxicated or Sedated No (0 pts) Impaired Gait No (0 pts) Mobility Assist Device Used No (0 pt) Altered Elimination No (0 pt) Score/Fall Risk Level 0 - 2 = Low Risk Oriented to surroundings, Maintained a safe environment, Educated pt \T\ family on fall prevention, incl call for assistance when getting out of bed, Assessed \T\ reinforced patient's understanding of fall precautions, Provided non-skid footwear, Hourly rounding (assess needs \T\ fall precautionary measures) done, Used ambulatory aids as needed (educated on \T\ assisted with), Used gait belt as appropriate. Abuse screen: Denies threats or abuse. Denies injuries from another. Nutritional screening: No deficits noted. Tuberculosis screening: No symptoms or risk factors identified. Vital Signs: 18:19 BP 149 / 90; Pulse 109; Resp 20; Temp 98.2; Pulse Ox 95% ; Weight 99.79 kg; Height 5 ko1 ft. 8 in. (172.72 cm); Pain 8/10; 18:19 Body Mass Index 33.45 (99.79 kg, 172.72 cm) ko1 ED Course: 18:15 Patient arrived in ED. as 18:21 Triage completed. ko1 18:21 Arm band placed on right wrist. Patient placed in waiting room, Patient notified of ko1 wait time. 18:43 Holland Ricketts MD is Attending Physician. rn 18:57 Patient has correct armband on for positive identification. ko1 18:57 No provider procedures requiring assistance completed. Patient did not have IV access ko1 during this emergency room visit. Administered Medications: No medications were administered Medication: 18:57 VIS not applicable for this client. ko1 Outcome: 18:48 Discharge ordered by . rn 18:57 Discharged to home ambulatory. ko1 18:57 Condition: good 18:57 Discharge instructions given to patient, Instructed on discharge instructions, follow up and referral plans. medication usage, Demonstrated understanding of instructions, follow-up care, medications, Prescriptions given X 3. 18:58 Patient left the ED. ko1 Signatures: Lorna Osuna as Holland Ricketts MD MD rn Oliver, Kathy, RN RN ko1
[2022-12-19 19:08] VITALS: BP 149/90; TEMP 98.2; O2SAT 95
== END 2022-12-19 18:58 | disposition home or self-care (01) ==
LOC: ER 18:10
DX: L03.314 Cellulitis of groin (principal); I10 Essential (primary) hypertension; Z87.442 Personal history of urinary calculi
CPT/HCPCS: 99282

== ENCOUNTER 2023-10-20 22:30 | Emergency (ER) | payer MEDICARE ==
--- OUTSIDE RECORDS SUMMARY | 2023-10-20 22:32 | XMS REPORT | Continuity of Care Document ---
:[address] [facility] t Address [address] [facility] [address] [place] [id number] Care Team Providers Name Role Phone Unavailable Unavailable Unavailable Payers Payer Name Policy Type Policy Number Effective Date Expiration Date S kassidy [facility] [id number] 2022 (MEDICARE 00:00:00 REPLACEMENT HMO) Problems This patient has no known problems. Allergies, Adverse Reactions, Alerts This patient has no known allergies or adverse reactions. Medications This patient has no known medications. Procedures This patient has no known procedures. Encounters Start End Encounter Admission Attending Care Care Encounter Source Date/Time Date/Time Type Type Clinicians Facility Department ID 2023-03-21 2023-03-21 Outpatient [facility] [id number] [facility]:00:00 00:00:00 [id number] [facility] 2022-09-29 2022-09-29 Outpatient [facility] [id number] [facility] 00:00:00 00:00:00 [id number] [facility] Results This patient has no known results.
[2023-10-20] MEDS ORDERED: CODEINE 30MG/APAP 300MG TAB ONE (23:16)
[2023-10-20] MEDS ORDERED: methocarbamoL 750 MG TAB ONE (23:17)
[2023-10-21] MEDS ORDERED: hydrOXYzine HCL 25 MG TAB ONE (02:24)
[2023-10-21] MEDS ORDERED: ONDANSETRON 4 MG (ODT) TAB ONE ×2 (02:24→07:10)
[2023-10-21] MEDS ORDERED: IBUPROFEN 400 MG TAB ONE (02:24)
--- NOTE | 2023-10-21 06:44 | EDPHYS ---
Physician Documentation [facility] Name: Steve García Age: 88 yrs Sex: Male : 1935 Arrival Date: 10/20/2023 Time: 22:30 Bed 7 Private MD: ED Physician Servando Oneill HPI: 10/20 22:41 This 88 yrs old Male presents to ER via Unassigned with complaints of Back sp4 Pain. 10/21 01:21 88-year-old male with history of underlying dementia, hyperlipidemia, kidney stones and sp4 hypertension presents with EMS for acute fall at home. Patient states he fell sideways out of his chair causing pain in the back and headache as well. Patient reportedly was able to stand up and walk to the EMS stretcher at home.. Historical: - Allergies: 10/20 22:56 NKDA; bp - PMHx: 22:56 Hyperlipidemia; Hypertension; Kidney stones; bp - Immunization history:: Adult Immunizations up to date. - Social history:: Smoking status: Patient denies any tobacco usage or history of. - Family history:: not pertinent. ROS: 10/21 01:21 Constitutional: Negative for fever, chills, and weight loss, positive for acute, sp4 positive for headache, positive for back pain acute on chronic Eyes: Negative for injury, pain, redness, and discharge, All other systems are negative, Exam: 01:21 Constitutional: This is a well developed, well nourished patient who is awake, alert, sp4 and in no acute distress. Frail debilitated individual with mild dementia Head/Face: Normocephalic, atraumatic. Eyes: Pupils equal round and reactive to light, extra-ocular motions intact. Lids and lashes normal. Conjunctiva and sclera are not injected. Cornea within normal limits. Periorbital areas with no swelling, redness, or edema. ENT: Nares patent. No nasal discharge, no septal abnormalities noted. Tympanic membranes are normal and external auditory canals are clear. Oropharynx with no redness, swelling, or masses, exudates, or evidence of obstruction, uvula midline. Mucous membranes moist. Neck: Trachea midline, no thyromegaly or masses palpated, and no cervical lymphadenopathy. Supple, full range of motion without nuchal rigidity, or vertebral point tenderness. Chest/axilla: Normal chest wall appearance and motion. Nontender with no deformity. No lesions are appreciated. Cardiovascular: Regular rate and rhythm with a normal S1 and S2. No gallops, murmurs, or rubs. Normal PMI, no JVD. No pulse deficits. Respiratory: Lungs have equal breath sounds bilaterally, clear to auscultation and percussion. No rales, rhonchi or wheezes noted. No increased work of breathing, no retractions or nasal flaring. Abdomen/GI: Soft, non-tender, with normal bowel sounds. No distension or tympany. No guarding or rebound. No evidence of tenderness throughout. Back: No spinal tenderness. No costovertebral tenderness. Skin: Warm, dry with normal turgor. Normal color with no rashes, no lesions, and no evidence of cellulitis. MS/ Extremity: Pulses equal, no cyanosis. Neurovascular intact. Full, normal range of motion. Neuro: Awake and alert, GCS 15, oriented to person, place, time, and situation. Cranial nerves II-XII grossly intact. Motor strength 5/5 in all extremities. Sensory grossly intact. Psych: Awake, alert, with orientation to person, place . Positive signs of mild dementia Vital Signs: 10/20 22:45 BP 145 / 67; Pulse 75; Resp 16; Temp 98; Pulse Ox 97% ; Weight 79.38 kg; bp 23:14 BP 127 / 65; Pulse 76; Resp 18 S; Pulse Ox 98% on R/A; ha1 1206 00:00 BP 112 / 65; Pulse 58; Resp 16 S; Pulse Ox 95% on R/A; ha1 01:00 BP 132 / 87; Pulse 61; Resp 17 S; Pulse Ox 95% on R/A; ha1 01:39 BP 137 / 74; Pulse 61; Resp 16 S; Pulse Ox 100% on R/A; ha1 02:30 BP 117 / 92; Pulse 45; Resp 16; Pulse Ox 95% ; bp 03:00 BP 119 / 62; Pulse 55; Resp 18 S; Pulse Ox 98% on R/A; ha1 06:00 BP 123 / 69; Pulse 57; Resp 17 S; Pulse Ox 95% on R/A; ha1 07:00 BP 119 / 80; Pulse 55; Resp 18; Pulse Ox 95% on R/A; db MDM: 10/20 22:41 Patient medically screened. sp4 10/21 01:16 ED course: CT - COMPARISON: None. FINDINGS: BRAIN: Cerebral volume loss and chronic sp4 small vessel ischemic changes. No hemorrhage. VENTRICLES: Unremarkable. No acute intracranial hemorrhage, hydrocephalus or herniation. SKULL: No acute fracture. SINUSES: Unremarkable as visualized. No acute sinusitis. MASTOID AIR CELLS: Unremarkable as visualized. No mastoid effusion. ORBITS: Prior cataract surgery. VERTEBRAE: Straightening of the cervical lordosis. Bulky anterior osteophytes at C3-4 and C4-5. DISCS/SPINAL CANAL/NEURAL FORAMINA: Multilevel disc herniations and endplate osteophytes with facet arthropathy contributing to bilateral foraminal narrowing throughout the cervical spine. Advanced multilevel disc height loss. SOFT TISSUES: Ossification of the anterior longitudinal ligament. IMPRESSION: 1. No acute intracranial hemorrhage, hydrocephalus or herniation. 2. Straightening of the cervical lordosis. Findings may be positional or due to muscle spasm. 3. Cerebral volume loss and chronic small vessel ischemic changes. Consider MRI brain for further evaluation. 4. No acute cervical spine fracture or subluxation. 5. Advanced multilevel degenerative changes. PROCEDURE: CT Chest, Abdomen and Pelvis Without Intravenous Contrast CLINICAL INDICATION: The patient is 88 years old and is Male; fall and head injury and back pain and chronic back pain The patient is 88 years old and is Male; fall and head injury and back pain and chronic back pain TECHNIQUE: Axial computed tomography images of the chest, abdomen and pelvis without intravenous contrast. Sagittal and coronal reformatted images were created and reviewed. This CT exam was performed using one or more of the following dose reduction techniques: automated exposure control, adjustment of the mA and/or kV according to patient size, and/or use of iterative reconstruction technique. COMPARISON: CT abdomen and pelvis dated 10/26/2019. FINDINGS: CHEST: LUNGS: Emphysematous changes with multiple bilateral pulmonary nodules and masses measuring up to 2.3 cm in the right lower lobe. No consolidation. PLEURAL SPACE: Unremarkable. No significant effusion. No pneumothorax. HEART: Coronary calcifications. No cardiomegaly. No significant pericardial effusion. ABDOMEN: LIVER: Hepatic steatosis. GALLBLADDER AND BILE DUCTS: Unremarkable. No calcified stones. No ductal dilation. PANCREAS: Unremarkable. No ductal dilation. SPLEEN: Unremarkable. No splenomegaly. ADRENALS: Left adrenal mass measuring 2.7 cm with attenuation values of 40 Hounsfield units. KIDNEYS AND URETERS: Punctate nonobstructive left renal stone. Multiple left renal cysts measuring up to 4.6 cm. Prior right nephrectomy. STOMACH AND BOWEL: Mild colonic diverticulosis. No acute diverticulitis. No obstruction. PELVIS: APPENDIX: No findings to suggest acute appendicitis. BLADDER: See below. REPRODUCTIVE: Advanced prostatomegaly with elevation of the bladder floor. CHEST, ABDOMEN and PELVIS: INTRAPERITONEAL SPACE: Unremarkable. No significant fluid collection. No free air. BONES/JOINTS: Advanced multilevel multifactorial degenerative changes throughout the thoracic and lumbar spine. Severe bilateral foraminal narrowing at L4-5 and L5-S1. No acute fracture. No dislocation. SOFT TISSUES: Unremarkable. VASCULATURE: Atherosclerotic vascular calcifications. No aortic aneurysm. LYMPH NODES: Unremarkable. No enlarged lymph nodes. IMPRESSION: 1. No posttraumatic intrathoracic, abdominal or pelvic abnormality. 2. Emphysematous changes with multiple bilateral pulmonary nodules and masses measuring up to 2.3 cm in the right lower lobe. Per Fleischner Society Guidelines, recommend a PET/CT or tissue sampling. These guidelines do not apply to immunocompromised patients and patients with cancer. Follow up in patients with significant comorbidities as clinically warranted. For lung cancer screening, adhere to Lung-RADS guidelines. 3. Left adrenal mass measuring 2.7 cm with attenuation values of 40 Hounsfield units. Recommend adrenal washout CT or chemical shift MRI. 5. Mild colonic diverticulosis. No acute diverticulitis. 6. Hepatic steatosis. . ED course: Patient at this time stable for discharge home however he is waiting for his ride to pick him up in the morning time.. 06:41 Differential diagnosis: arthritis, Fatigue Fracture Joint Injury Metastatic Disease sp4 Osteoporosis. Data reviewed: vital signs, nurses notes, EMS record, old medical records, lab test result(s), radiologic studies, CT scan. Consideration of Admission/Observation Escalation of care including admission/observation considered. ED course: Patient at this time stable for discharge home. Will prescribe as needed tramadol for pain. ED course: Patient was advised to see his [place] primary care physician for evaluation of the left adrenal mass also for evaluation of multiple pulmonary nodules. Additionally also for evaluation of hepatic steatosis.. 10/20 22:40 Order name: CT Traumagram (Head C Spine CAP wo con) sp4 Administered Medications: 10/20 23:00 Drug: Acetaminophen-Codeine PO (300 mg-30 mg) 2 tabs PO once; RASS on ADMIN: Combtv4, ha1 Very Agttd3, Agttd2, Rstlss1, AlertClm0, Drwsy-1, Lt Sdtn-2, Mod Sdtn-3, Dp Sdtn-4, UnArsble-5 Route: PO; 10/21 00:00 Follow up: Response: No adverse reaction; Pain is decreased; RASS: Alert and Calm (0) ha1 10/20 23:00 Drug: Methocarbamol PO 750 mg PO once Route: PO; ha1 10/21 00:00 Follow up: Response: No adverse reaction ha1 02:28 Drug: Ibuprofen PO 400 mg PO once Route: PO; bp 03:15 Follow up: Response: No adverse reaction; Pain is decreased ha1 02:28 Drug: Ondansetron PO 4 mg PO once Route: PO; bp 03:15 Follow up: Response: No adverse reaction ha1 02:29 Drug: hydrOXYzine PO 25 mg PO once Route: PO; bp 03:15 Follow up: Response: No adverse reaction ha1 06:58 Drug: Acetaminophen-Codeine PO (300 mg-30 mg) 2 tabs PO once; RASS on ADMIN: Combtv4, ha1 Very Agttd3, Agttd2, Rstlss1, AlertClm0, Drwsy-1, Lt Sdtn-2, Mod Sdtn-3, Dp Sdtn-4, UnArsble-5 Route: PO; 07:53 Follow up: Response: No adverse reaction db 06:58 Drug: Ondansetron PO 4 mg PO once Route: PO; ha1 07:53 Follow up: Response: No adverse reaction db Disposition Summary: 10/21/23 06:43 Discharge Ordered Problem: new sp4 Symptoms: have improved sp4 Condition: Stable sp4 Diagnosis - Unspecified injury of head, initial encounter sp4 - Left adrenal mass, multiple pulmonary nodules, emphysema, hepatic steatosis, sp4 albuterol at home, acute spinal pain, acute lower back pain, closed head injury, physical deconditioning, Followup: sp4 - With: Private Physician - When: 7 - 10 days - Reason: Recheck today's complaints Discharge Instructions: - Discharge Summary Sheet sp4 - Head Injury, Adult sp4 Forms: - Patient Portal Instructions sp4 Prescriptions: - Tramadol 50 mg Oral tablet - take 1 tablet ORAL route every 8 hours as needed; 20 tablet; Refills: 0, sp4 Product Selection Permitted Signatures: Dispatcher [employer] Tyrone Shelton, RN RN Ani Palmer RN RN ha1 Servando Oneill MD MD sp4 Caroline Joyner RN db
--- NOTE | 2023-10-21 06:44 | ER ---
Nurse's Notes [facility] Name: Steve García Age: 88 yrs Sex: Male : 1935 Arrival Date: 10/20/2023 Time: 22:30 Bed 7 Private MD: Diagnosis: Unspecified injury of head, initial encounter;Left adrenal mass, multiple pulmonary nodules, emphysema, hepatic steatosis, albuterol at home, acute spinal pain, acute lower back pain, closed head injury, physical deconditioning, Presentation: 10/20 22:45 Chief complaint: EMS states: FALL FROM SEATED POSITION AT HOME AFTER FALLING ASLEEP AT bp DINNER TABLE. 22:45 Coronavirus screen: At this time, the client does not indicate any symptoms associated bp with coronavirus-19. Ebola Screen: No symptoms or risks identified at this time. Initial Sepsis Screen: Does the patient meet any 2 criteria? No. Patient's initial sepsis screen is negative. Does the patient have a suspected source of infection? No. Patient's initial sepsis screen is negative. Risk Assessment: Do you want to hurt yourself or someone else? Patient reports no desire to harm self or others. Note EXACERBATION OF CHRONIC BACK PAIN x8 YR. Onset of symptoms is unknown. 22:45 Method Of Arrival: EMS: [facility] bp 22:45 Acuity: DEANNE 4 bp Triage Assessment: 22:56 General: Appears in no apparent distress. Behavior is calm, cooperative. Pain: bp Complains of pain in back. Musculoskeletal: Circulation, motion, and sensation intact. Historical: - Allergies: 22:56 NKDA; bp - PMHx: 22:56 Hyperlipidemia; Hypertension; Kidney stones; bp - Immunization history:: Adult Immunizations up to date. - Social history:: Smoking status: Patient denies any tobacco usage or history of. - Family history:: not pertinent. Screenin:[facility] ED Fall Risk Assessment (Adult) History of falling in the last 3 months, bp including since admission No falls in past 3 months (0 pts). Abuse screen: Denies threats or abuse. Denies injuries from another. Nutritional screening: No deficits noted. Tuberculosis screening: No symptoms or risk factors identified. Assessment: 22:57 General: SEE TRIAGE NOTE. bp 23:16 Reassessment: Patient and/or family updated on plan of care and expected duration. Pain ha1 level reassessed. Patient is alert, oriented x 3, equal unlabored respirations, skin warm/dry/pink. 10/21 00:15 Reassessment: Patient and/or family updated on plan of care and expected duration. Pain ha1 level reassessed. Patient is alert, oriented x 3, equal unlabored respirations, skin warm/dry/pink. 02:30 Reassessment: PT CLEARED FOR DISPO HOME, NO TRANSPORT AVAILABLE. bp 03:30 Reassessment: Patient and/or family updated on plan of care and expected duration. Pain ha1 level reassessed. 04:30 Reassessment: Patient is alert, oriented x 3, equal unlabored respirations, skin ha1 warm/dry/pink. Patient denies pain at this time. 05:16 Reassessment: cell [phone]. ha1 06:30 Reassessment: Patient and/or family updated on plan of care and expected duration. Pain ha1 level reassessed. Patient is alert, oriented x 3, equal unlabored respirations, skin warm/dry/pink. waiting for ride home. 07:15 Reassessment: Patient appears in no apparent distress at this time. Patient and/or db family updated on plan of care and expected duration. Pain level reassessed. Reassessment: PT WITH HX OF DEMENTIA. General: Appears in no apparent distress. comfortable, Behavior is calm, cooperative. Pain: Denies pain. Neuro: Level of Consciousness is awake, alert, obeys commands, Oriented to person, place, time. Respiratory: Airway is patent Respiratory effort is even, unlabored, Respiratory pattern is regular, symmetrical. Vital Signs: 10/20 22:45 BP 145 / 67; Pulse 75; Resp 16; Temp 98; Pulse Ox 97% ; Weight 79.38 kg; bp 23:14 BP 127 / 65; Pulse 76; Resp 18 S; Pulse Ox 98% on R/A; ha1 10/21 00:00 BP 112 / 65; Pulse 58; Resp 16 S; Pulse Ox 95% on R/A; ha1 01:00 BP 132 / 87; Pulse 61; Resp 17 S; Pulse Ox 95% on R/A; ha1 01:39 BP 137 / 74; Pulse 61; Resp 16 S; Pulse Ox 100% on R/A; ha1 02:30 BP 117 / 92; Pulse 45; Resp 16; Pulse Ox 95% ; bp 03:00 BP 119 / 62; Pulse 55; Resp 18 S; Pulse Ox 98% on R/A; ha1 06:00 BP 123 / 69; Pulse 57; Resp 17 S; Pulse Ox 95% on R/A; ha1 07:00 BP 119 / 80; Pulse 55; Resp 18; Pulse Ox 95% on R/A; db ED Course: 10/20 22:38 Patient arrived in ED. bp 22:39 Servando Oneill MD is Attending Physician. sp4 22:54 Tyrone Quigley, JULIO CESAR is Primary Nurse. bp 22:56 Triage completed. bp 22:56 Arm band placed on. bp 22:57 Patient has correct armband on for positive identification. Bed in low position. Call bp light in reach. Side rails up X2. 23:02 CT Traumagram (Head C Spine CAP wo con) In Process Unspecified. EDMS 10/21 07:53 Provided Education on: DISCHARGE. Warm blanket given. db 07:53 No provider procedures requiring assistance completed. Patient did not have IV access db during this emergency room visit. Administered Medications: 10/20 23:00 Drug: Acetaminophen-Codeine PO (300 mg-30 mg) 2 tabs PO once; RASS on ADMIN: Combtv4, ha1 Very Agttd3, Agttd2, Rstlss1, AlertClm0, Drwsy-1, Lt Sdtn-2, Mod Sdtn-3, Dp Sdtn-4, UnArsble-5 Route: PO; 10/21 00:00 Follow up: Response: No adverse reaction; Pain is decreased; RASS: Alert and Calm (0) ha1 10/20 23:00 Drug: Methocarbamol PO 750 mg PO once Route: PO; ha1 10/21 00:00 Follow up: Response: No adverse reaction ha1 02:28 Drug: Ibuprofen PO 400 mg PO once Route: PO; bp 03:15 Follow up: Response: No adverse reaction; Pain is decreased ha1 02:28 Drug: Ondansetron PO 4 mg PO once Route: PO; bp 03:15 Follow up: Response: No adverse reaction ha1 02:29 Drug: hydrOXYzine PO 25 mg PO once Route: PO; bp 03:15 Follow up: Response: No adverse reaction ha1 06:58 Drug: Acetaminophen-Codeine PO (300 mg-30 mg) 2 tabs PO once; RASS on ADMIN: Combtv4, ha1 Very Agttd3, Agttd2, Rstlss1, AlertClm0, Drwsy-1, Lt Sdtn-2, Mod Sdtn-3, Dp Sdtn-4, UnArsble-5 Route: PO; 07:53 Follow up: Response: No adverse reaction db 06:58 Drug: Ondansetron PO 4 mg PO once Route: PO; ha1 07:53 Follow up: Response: No adverse reaction db Medication: 10/20 22:57 VIS not applicable for this client. bp Outcome: 10/21 06:43 Discharge ordered by sp4 07:53 Patient left the ED. ll1 07:53 Discharged to home via wheelchair, with family, db 07:53 Condition: stable 07:53 Discharge instructions given to patient, family, significant other, Instructed on discharge instructions, follow up and referral plans. Prescriptions given X 1, Signatures: Dispatcher [employer] EDMS Tyrone Quigley RN RN bp Lewis, Lynsay, RN RN 1 Ani Teixeira RN RN ha1 Caroline Joyner RN RN db Servando Oneill MD MD sp4 Corrections: (The following items were deleted from the chart) 10/20 22:58 22:45 BP 145 / 67; Pulse 75bpm; Resp 16bpm; Pulse Ox 97%; Temp 98F; bp bp 10/21 05:02 02:30 BP 148 / 62; Pulse 55bpm; Resp 18bpm; Spontaneous; Pulse Ox 98% RA; ha1 ha1
[2023-10-21] MEDS ORDERED: CODEINE 30MG/APAP 300MG TAB ONE (07:10)
[2023-10-21 14:44] VITALS: TEMP 98
[2023-10-21 14:52] VITALS: BP 123/69; O2SAT 95
--- NOTE | 2023-10-21 16:55 | RAD REPORT ---
EXAM DESCRIPTION: CT - Head C Spine Cap Wo Con - 10/21/2023 6:38 am CLINICAL HISTORY: The patient is 88 years old and is Male; fall and head injury and back pain and ch ronic back pain The patient is 88 years old and is Male; fall and head injury and back pain and chr onic back pain TECHNIQUE: Axial computed tomography images of the head/brain and cervical spine without intravenous contrast. Sagittal and coronal reformatted images were created and reviewed. This CT exam was pe rformed using one or more of the following dose reduction techniques: automated exposure control, a djustment of the mA and/or kV according to patient size, and/or use of iterative reconstruction techn ique. DLP: 2392 mGy*cm COMPARISON: None. FINDINGS: BRAIN: Cerebral volume loss and chronic small vessel ischemic changes. No hemorrhage. VENTRICLES: Unremarkable. No acute intracranial hemorrhage, hydrocephalus or herniation. SKULL: No acute fracture. SINUSES: Unremarkable as visualized. No acute sinusitis. MASTOID AIR CELLS: Unremarkable as visualized. No mastoid effusion. ORBITS: Prior cataract surgery. VERTEBRAE: Straightening of the cervical lordosis. Bulky anterior osteophytes at C3-4 and C4-5. DISCS/SPINAL CANAL/NEURAL FORAMINA: Multilevel disc herniations and endplate osteophytes with facet arthropathy contributing to bilateral foraminal narrowing throughout the cervical spine. Advanced multilevel disc height loss. SOFT TISSUES: Ossification of the anterior longitudinal ligament. IMPRESSION: 1. No acute intracranial hemorrhage, hydrocephalus or herniation. 2. Straightening of the cervical lordosis. Findings may be positional or due to muscle spasm. 3. Cerebral volume loss and chronic small vessel ischemic changes. Consider MRI brain for further evaluation. 4. No acute cervical spine fracture or subluxation. 5. Advanced multilevel degenerative changes. EXAM DESCRIPTION: CT Chest, Abdomen and Pelvis Without Intravenous Contrast CLINICAL HISTORY: The patient is 88 years old and is Male; fall and head injury and back pain and ch ronic back pain The patient is 88 years old and is Male; fall and head injury and back pain and chr onic back pain TECHNIQUE: Axial computed tomography images of the chest, abdomen and pelvis without intravenous con trast. Sagittal and coronal reformatted images were created and reviewed. This CT exam was perfor med using one or more of the following dose reduction techniques: automated exposure control, adjus tment of the mA and/or kV according to patient size, and/or use of iterative reconstruction technique . COMPARISON: CT abdomen and pelvis dated 10/26/2019. FINDINGS: CHEST: LUNGS: Emphysematous changes with multiple bilateral pulmonary nodules and masses measuring up to 2 .3 cm in the right lower lobe. No consolidation. PLEURAL SPACE: Unremarkable. No significant effusion. No pneumothorax. HEART: Coronary calcifications. No cardiomegaly. No significant pericardial effusion. ABDOMEN: LIVER: Hepatic steatosis. GALLBLADDER AND BILE DUCTS: Unremarkable. No calcified stones. No ductal dilation. PANCREAS: Unremarkable. No ductal dilation. SPLEEN: Unremarkable. No splenomegaly. ADRENALS: Left adrenal mass measuring 2.7 cm with attenuation values of 40 Hounsfield units. KIDNEYS AND URETERS: Punctate nonobstructive left renal stone. Multiple left renal cysts measuring up to 4.6 cm. Prior right nephrectomy. STOMACH AND BOWEL: Mild colonic diverticulosis. No acute diverticulitis. No obstruction. PELVIS: APPENDIX: No findings to suggest acute appendicitis. BLADDER: See below. REPRODUCTIVE: Advanced prostatomegaly with elevation of the bladder floor. CHEST, ABDOMEN and PELVIS: INTRAPERITONEAL SPACE: Unremarkable. No significant fluid collection. No free air. BONES/JOINTS: Advanced multilevel multifactorial degenerative changes throughout the thoracic and l umbar spine. Severe bilateral foraminal narrowing at L4-5 and L5-S1. No acute fracture. No dislocation. SOFT TISSUES: Unremarkable. VASCULATURE: Atherosclerotic vascular calcifications. No aortic aneurysm. LYMPH NODES: Unremarkable. No enlarged lymph nodes. IMPRESSION: 1. No posttraumatic intrathoracic, abdominal or pelvic abnormality. 2. Emphysematous changes with multiple bilateral pulmonary nodules and masses measuring up to 2.3 c m in the right lower lobe. Per Fleischner Society Guidelines, recommend a PET/CT or tissue sampling. These guidelines do not apply to immunocompromised patients and patients with cancer. Follow up in pa tients with significant comorbidities as clinically warranted. For lung cancer screening, adhere to L grace-RADS guidelines. Reference: Radiology. 2017; 284(1):228-43. 3. Left adrenal mass measuring 2.7 cm with attenuation values of 40 Hounsfield units. Recommend adr enal washout CT or chemical shift MRI. JACR 2017 Jun; 14(8):1038-44, JCAT 2016 Jan-Feb; 40(2):194-200, Urol J spring; 3(2):71-4. 4. Advanced prostatomegaly with elevation of the bladder floor. 5. Mild colonic diverticulosis. No acute diverticulitis. 6. Hepatic steatosis. Electronically signed by: Ethan Melvin DO 10/20/2023 11:25 PM [employer] MACHINIST Due to temporary technical issues with the PACS/Fluency reporting system, reports are being signed by the in house radiologists without review as a courtesy to insure prompt reporting. The interpreting radiologist is fully responsible for the content of the report.
== END 2023-10-21 07:53 | disposition home or self-care (01) ==
LOC: ER 22:30
DX: S09.90XA Unspecified injury of head, initial encounter (principal); M54.50 Low back pain, unspecified; M54.9 Dorsalgia, unspecified; E27.8 Other specified disorders of adrenal gland; R91.8 Other nonspecific abnormal finding of lung field; J43.9 Emphysema, unspecified; N28.89 Other specified disorders of kidney and ureter; Z72.3 Lack of physical exercise; I10 Essential (primary) hypertension; E78.5 Hyperlipidemia, unspecified; Z87.442 Personal history of urinary calculi
CPT/HCPCS: 70450; 71250; 72125; 99284; Q0162 ×2

== ENCOUNTER → 2023-11-09 | Emergency (ER) | payer MEDICARE ==
[~2023-11-09] MED LIST: HYDROCODONE/APAP 5/325 MG TAB ONE; IBUPROFEN 400 MG TAB ONE; PROMETHAZINE 25 MG TABLET ONE; predniSONE 20 MG TAB ONE
--- OUTSIDE RECORDS SUMMARY | 2023-11-09 00:14 | XMS REPORT | Continuity of Care Document ---
Author Name Unknown Address [address] [facility] [place] [address] [facility] thconnect Address [address] [facility] [address] [place] [address] Care Team Providers Care J2Ee Application Developer Name Role Phone Unavailable Unavailable Unavailable Payers Payer Name Policy Type Policy Number Effective Date Expirati on Date Source [employer] (MEDICARE REPLACEMENT HMO) [id number] 2022 00:00:00 Encounters Start Date/Time End Date/Time Encounter Type Admission Type Attending [facility] Facility Care Department Encounter ID Source 2023-03-21 00:00:00 2023-03-21 00:00:00 Outpatient [facility] [id number] [facility] 2022-09-29 00:00:00 2022-09-29 00:00:00 Outpatient [facility] [id number] [facility]
[2023-11-09 02:01] LABS: Absolute Lymphocytes (CBC) 0.7 K/uL (0.7-4.9); Hematocrit 44.4 % (39.6-49.0); Lymphocytes % 6.6 % (15.3-44.8); MCV 83.3 fL (80-100); MPV 8.7 fL (7.6-11.3); Platelets 501 thou/uL (152-406); Protime INR 1.21; RBC Red Blood Cell Count 5.32 M/uL (4.33-5.43)
[2023-11-09 02:13] LABS: Albumin 2.8 g/dL (3.4-5.0); Bilirubin Direct 0.3 mg/dL (0-0.2); Bilirubin Indirect, Calculated 0.5 mg/dL (0.2-0.8); Bilirubin Total 0.8 mg/dL (0.2-1.0); Magnesium 2.6 mg/dL (1.6-2.4); Potassium 3.9 mEq/L (3.5-5.1); Protein, Total 7.7 g/dL (6.4-8.2); Troponin High Sensitivity 21.4 pg/mL (<58.9)
--- NOTE | 2023-11-09 04:46 | ER ---
Nurse's Notes [facility] Rashawn Name: Steve García Age: 88 yrs Sex: Male : 1935 Arrival Date: 11/09/2023 Time: 00:11 Bed 19 Private MD: Diagnosis: Generalized pain, acute exacerbation of chronic pain, left knee inflammatory arthritis, left knee gout. Physical debility Presentation: 11/09 00:15 Chief complaint: EMS states: Pt requested to come to ED due to needing a urinary nw1 catheter to prevent falls when needing to urinate. Care prior to arrival: NRB placed on patient. Mechanism of Injury: Pt's states fall from standing. Trauma event details: Injury occurred: November 08, 2023 Injury occurred at: 23:30. 00:15 Acuity: DEANNE 3 nw1 00:15 Method Of Arrival: EMS: [facility] nw1 Historical: - Allergies: 03:17 NKDA; nw1 - PMHx: 03:17 Hyperlipidemia; Hypertension; Kidney stones; nw1 - Immunization history: Last tetanus immunization: unknown. - Social history:: Smoking status: Patient denies any tobacco usage or history of. - Family history:: not pertinent. Screenin:31 Abuse screen: Denies threats or abuse. Denies injuries from another. Tuberculosis nw1 screening: No symptoms or risk factors identified. 03:17 [facility] ED Fall Risk Assessment (Adult) History of falling in the last 3 months, nw1 including since admission Yes- fall prone (multiple falls) (3 pts) Confusion or Disorientation Yes (5 pts) Intoxicated or Sedated No (0 pts) Impaired Gait Yes (1 pt) Mobility Assist Device Used Yes (1 pt) Altered Elimination No (0 pt) Score/Fall Risk Level 3 or more points = High Risk Oriented to surroundings, Maintained a safe environment, Provided non-skid footwear, Hourly rounding (assess needs \\T\\ fall precautionary measures) done, Used ambulatory aids as needed (educated on \\T\\ assisted with), Used gait belt as appropriate. Nutritional screening: No deficits noted. Primary Survey: 00:15 NO uncontrolled hemorrhage observed. A: The client is awake and alert. The airway is nw1 patent. The client is alert. Airway: patent, No supplemental oxygen in use on arrival. Breathing/Chest: Spontaneous respiratory effort, equal unlabored respirations, breath sounds clear bilaterally, regular pattern, symmetrical chest rise and fall. Circulation: No external hemorrhage present. Regular and strong central pulse, skin warm/dry/normal color. Pulses: palpable right radial artery and left radial artery. Heart tones present. Disability Pupils are equal, round, reactive to light and accommodation. Client is alert. Client responds to verbal stimuli. Exposure/Environment: All clothing and personal items were removed. Forensic evidence collection is not deemed to be indicated at this time. Items placed in patient belonging bag. Reassessment Alertness and Airway: Awake and alert. The airway is patent. Breathing: Spontaneous respiratory effort, equal unlabored respirations, breath sounds clear bilaterally, regular pattern with symmetrical chest rise and fall. Respiratory effort Spontaneous Unlabored Breath sounds Clear Respiratory pattern Regular Chest inspection Symmetrical Circulation: No external hemorrhage noted. Regular and strong central pulse, skin warm/dry/normal color. Heart rhythm Sinus rhythm Heart tones Present Pulses Palpable Color [place] Temperature Warm Disability: Pupils Pupils are equal, round, reactive to light and accomodation. Alert Verbal stimuli Painful stimuli. Secondary Survey: 00:31 HEENT: No deficits noted. Gastrointestinal: No deficits noted. : No deficits noted. nw1 Musculoskeletal: Swelling present in left knee. Assessment: 00:15 General: Appears in no apparent distress. comfortable, Behavior is calm, cooperative, nw1 appropriate for age. Pain: Complains of pain in left knee Pain began 54 years ago. pt also states history of gout. Derm: Skin is intact, Skin is dry, Skin is pink, Skin temperature is warm left knee. Musculoskeletal: Reports pain in "everywhere" since 54 years ago in [place]. 06:02 Reassessment: Pending EMS to take patient home. Araceli made aware. Discharge nw1 instructions reviewed with Araceli whom verbalized understanding. 07:00 Reassessment: Patient appears in no apparent distress at this time. No changes from kc6 previously documented assessment. Patient and/or family updated on plan of care and expected duration. Pain level reassessed. Patient is alert, oriented x 3, equal unlabored respirations, skin warm/dry/pink. 08:12 Reassessment: Patient appears in no apparent distress at this time. No changes from kc6 previously documented assessment. Patient and/or family updated on plan of care and expected duration. Pain level reassessed. called and spoke with patients Araceli. informed her pt is on his way home via [facility]. verbalized understanding of D/C instructions. Vital Signs: 00:31 BP 145 / 82; Pulse 93; Resp 16; Temp 97.7(O); Pulse Ox 97% on R/A; Weight 99.79 kg (R); nw1 Height 5 ft. 8 in. ; Pain 6/10; 01:37 BP 130 / 78; Pulse 81; Resp 16; Pulse Ox 100% on R/A; nw1 02:22 BP 130 / 62; Pulse 58; Resp 16; Pulse Ox 100% ; nw1 03:00 BP 111 / 72; Pulse 58; Resp 16; Pulse Ox 97% ; nw1 04:00 BP 130 / 74; Pulse 65; Resp 16; Pulse Ox 98% ; nw1 04:30 BP 128 / 69; Pulse 65; Resp 16; Pulse Ox 98% ; nw1 06:01 BP 136 / 75; Pulse 65; Resp 15; Pulse Ox 98% on R/A; nw1 00:31 Body Mass Index 33.45 (99.79 kg, 172.72 cm) nw1 00:31 Pain Scale: Adult nw1 [place] Coma Score: 00:31 Eye Response: spontaneous(4). Motor Response: obeys commands(6). Verbal Response: nw1 confused(4). Total: 14. Trauma Score (Adult): 00:31 Eye Response: spontaneous(1); Verbal Response: oriented(1); Motor Response: obeys nw1 commands(2); Systolic BP: > 89 mm Hg(4); Respiratory Rate: 10 to 29 per min(4); Dino Score: 15; Trauma Score: 12 ED Course: 00:12 Patient arrived in ED. jj6 00:15 Tanisha Dyer, JULIO CESAR is Primary Nurse. nw1 00:16 Servando Oneill MD is Attending Physician. sp4 00:27 Triage completed. nw1 00:31 Patient has correct armband on for positive identification. Placed in gown. Bed in low nw1 position. Call light in reach. Side rails up X2. Client placed on continuous cardiac and pulse oximetry monitoring. NIBP monitoring applied. manager monitoring on. Pulse ox on. NIBP on. 00:31 Patient maintains SpO2 saturation greater than 95% on room air. nw1 00:56 XRAY Chest (1 view) In Process Unspecified. EDMS 01:16 Basic Metabolic Panel Sent. nw 01:16 CBC with Diff Sent. nw11 16:16 LFT's Sent. nw11 16: Magnesium Sent. nw11 16:16 NT PRO-BNP Sent. :16 PT-INR Sent. nw11 16: Troponin HS Sent. nw11 16:17 No provider procedures requiring assistance completed. Inserted saline lock: 18 gauge nw1 in right antecubital area, using aseptic technique. Blood collected. :17 Provided Education on: POC. Door closed. Noise minimized. Warm blanket given. nw 03:17 EKG done, by ED staff, reviewed by Servando Oneill MD. nw1 06:02 Called [facility] to get transport home, gave ETA \\T\\ 0800. 07:00 Report received from Tanisha Dyer RN. kc6 07:00 Arm band placed on. kc6 08:16 IV discontinued, intact, bleeding controlled, No redness/swelling at site. Pressure kc6 dressing applied. Administered Medications: :17 Drug: predniSONE PO 60 mg PO once Route: PO; :17 Drug: HYDROcodone-acetaminophen PO 5 mg-325 mg 2 tabs PO once Route: PO; :17 Drug: Promethazine PO 25 mg PO once Route: PO; :17 Drug: Ibuprofen PO 800 mg PO once Route: PO; nw Medication: 03:17 VIS not applicable for this client. nw1 Intake: 00:31 PO: 0ml; Total: 0ml. nw1 Output: 00:31 Urine: 0ml; Total: 0ml. nw1 Outcome: 04:46 Discharge ordered by . leora 08:16 Discharged to home via ambulance, Araceli informed pt is with [facility] kc6 08:16 Condition: good 08:16 Discharge instructions given to patient, significant other, EMS, Instructed on discharge instructions, follow up and referral plans. medication usage, Demonstrated understanding of instructions, follow-up care, medications, Prescriptions given X 3, 08:17 Patient left the ED. kc6 Signatures: Dispatcher [employer] EDMS Yamini Grady Ashanti Malhotra Kaitlyn, RN RN kc6 Potepalov, Servando, MD MD sp4 Gomez, Tanisha, RN RN nw1
--- NOTE | 2023-11-09 04:46 | EDPHYS ---
Physician Documentation [facility] [place] Name: Steve García Age: 88 yrs Sex: Male : 1935 Arrival Date: 11/09/2023 Time: 00:11 Bed 19 Private MD: ED Physician Servando Oneill HPI: 11/09 00:17 This 88 yrs old Male presents to ER via Unassigned with complaints of Fall sp4 Injury. 04:41 A 88-year-old male presents with primary complaint of generalized pain particular pain sp4 in the left knee associated with history of gout. Patient also requests Turpin catheter placement because it is difficult for him to get up to the bathroom. . Historical: - Allergies: 03:17 NKDA; nw1 - PMHx: 03:17 Hyperlipidemia; Hypertension; Kidney stones; nw1 - Immunization history: Last tetanus immunization: unknown. - Social history:: Smoking status: Patient denies any tobacco usage or history of. - Family history:: not pertinent. ROS: 04:41 Constitutional: Negative for fever, chills, and weight loss, positive generalized pain sp4 04:41 All other systems are negative, Exam: 04:41 Constitutional: This is a well developed, well nourished patient who is awake, alert, sp4 and in no acute distress. Patient is frail elderly debilitated male with left knee swelling Head/Face: Normocephalic, atraumatic. Eyes: Pupils equal round and reactive to light, extra-ocular motions intact. Lids and lashes normal. Conjunctiva and sclera are not injected. Cornea within normal limits. Periorbital areas with no swelling, redness, or edema. ENT: Nares patent. No nasal discharge, no septal abnormalities noted. Tympanic membranes are normal and external auditory canals are clear. Oropharynx with no redness, swelling, or masses, exudates, or evidence of obstruction, uvula midline. Mucous membranes moist. Neck: Trachea midline, no thyromegaly or masses palpated, and no cervical lymphadenopathy. Supple, full range of motion without nuchal rigidity, or vertebral point tenderness. Chest/axilla: Normal chest wall appearance and motion. Nontender with no deformity. No lesions are appreciated. Cardiovascular: Regular rate and rhythm with a normal S1 and S2. No gallops, murmurs, or rubs. Normal PMI, no JVD. No pulse deficits. Respiratory: Lungs have equal breath sounds bilaterally, clear to auscultation and percussion. No rales, rhonchi or wheezes noted. No increased work of breathing, no retractions or nasal flaring. Abdomen/GI: Soft, non-tender, with normal bowel sounds. No distension or tympany. No guarding or rebound. No evidence of tenderness throughout. Back: No spinal tenderness. No costovertebral tenderness. Male : Normal genitalia with no discharge or lesions. Uncircumcised male, wears depends, incontinent of urinary bladder Skin: Warm, dry with normal turgor. Normal color with no rashes, no lesions, and no evidence of cellulitis. MS/ Extremity: Pulses equal, no cyanosis. Neurovascular intact. Full, normal range of motion. Neuro: Awake and alert, GCS 15, oriented to person, place, time, and situation. Cranial nerves II-XII grossly intact. Motor strength 5/5 in all extremities. Sensory grossly intact. Psych: Awake, alert, with orientation to person, place and time. Behavior, mood, and affect are within normal limits Vital Signs: 00:31 BP 145 / 82; Pulse 93; Resp 16; Temp 97.7(O); Pulse Ox 97% on R/A; Weight 99.79 kg (R); nw1 Height 5 ft. 8 in. ; Pain 6/10; 01:37 BP 130 / 78; Pulse 81; Resp 16; Pulse Ox 100% on R/A; nw1 02:22 BP 130 / 62; Pulse 58; Resp 16; Pulse Ox 100% ; nw1 03:00 BP 111 / 72; Pulse 58; Resp 16; Pulse Ox 97% ; nw1 04:00 BP 130 / 74; Pulse 65; Resp 16; Pulse Ox 98% ; nw1 04:30 BP 128 / 69; Pulse 65; Resp 16; Pulse Ox 98% ; nw1 06:01 BP 136 / 75; Pulse 65; Resp 15; Pulse Ox 98% on R/A; nw1 00:31 Body Mass Index 33.45 (99.79 kg, 172.72 cm) nw 00:31 Pain Scale: Adult nw [place] Coma Score: 00:31 Eye Response: spontaneous(4). Motor Response: obeys commands(6). Verbal Response: nw1 confused(4). Total: 14. Trauma Score (Adult): 00:31 Eye Response: spontaneous(1); Verbal Response: oriented(1); Motor Response: obeys nw1 commands(2); Systolic BP: > 89 mm Hg(4); Respiratory Rate: 10 to 29 per min(4); Mcpherson Score: 15; Trauma Score: 12 MDM: 00:17 Patient medically screened. sp4 04:41 Differential diagnosis: fracture, sprain, strain. Data reviewed: vital signs, nurses sp4 notes, lab test result(s), radiologic studies, plain films. Consideration of Admission/Observation Escalation of care including admission/observation considered. ED course: CLINICAL HISTORY: 88 years Male, CHEST PAIN TECHNIQUE: 1 view (Single frontal view of the chest) COMPARISON: CT chest 10/20/2023 FINDINGS: LINES AND TUBES: None. CARDIOVASCULAR STRUCTURES: Normal heart size. No pulmonary venous congestion. LUNGS: No confluent areas of acute consolidation. There are multiple scattered peripherally based pulmonary nodules measuring up to 1.5 cm compatible with metastases. PLEURA: No layering pleural effusions. No pneumothorax. BONES: No acute osseous abnormality of the thorax. IMPRESSION: 1. Multiple scattered peripherally based pulmonary nodules measuring up to 1.5 cm compatible with metastases. 2. No confluent areas of acute consolidation. . 11/09 00:16 Order name: Basic Metabolic Panel; Complete Time: 04:38 4 11/09 00:16 Order name: CBC with Diff; Complete [facility]: 04:38 [facility] 11/09 00:16 Order name: LFT's; Complete Time: 04: [facility] 11/09 00:16 Order name: Magnesium; Complete Time: 04:38 4 11/09 00:16 Order name: NT PRO-BNP; Complete Time: 04:38 [facility] 11/09 00:16 Order name: PT-INR; Complete Time: 04: [facility] 11/09 00:16 Order name: Troponin HS; Complete Time: 04: [facility] 11/09 00:16 Order name: XRAY Chest (1 view) 4 11/09 00:16 Order name: EKG; Complete Time: 00:17 4 11/09 00:16 Order name: Cardiac monitoring; Complete Time: 01:16 [facility] 11/09 00:16 Order name: EKG - Nurse/Tech; Complete Time: 01:34 sp4 11/09 00:16 Order name: IV Saline Lock; Complete Time: :16 sp4 11/09 00:16 Order name: Labs collected and sent; Complete Time: 01:16 sp4 11/09 00:16 Order name: O2 Per Protocol; Complete Time: :16 sp4 11/09 00:16 Order name: O2 Sat Monitoring; Complete Time: : sp4 Administered Medications: 01:17 Drug: predniSONE PO 60 mg PO once Route: PO; 01:17 Drug: HYDROcodone-acetaminophen PO 5 mg-325 mg 2 tabs PO once Route: PO; 01:17 Drug: Promethazine PO 25 mg PO once Route: PO; :17 Drug: Ibuprofen PO 800 mg PO once Route: PO; nw Disposition Summary: 11/09/23 04:46 Discharge Ordered Notes: Location: Home sp4 Problem: new sp4 Condition: Stable sp4 Diagnosis - Generalized pain, acute exacerbation of chronic pain, left knee inflammatory sp4 arthritis, left knee gout. Physical debility Followup: sp4 - With: Private Physician - When: 5 - 6 days - Reason: Recheck today's complaints Discharge Instructions: - Discharge Summary Sheet sp4 - Arthritis, [id number] sp4 Forms: - SBAR form kc6 - Patient Portal Instructions sp4 Prescriptions: - acetaminophen-codeine 300-60 mg Oral tablet - take 1 tablet ORAL route every 8 hours PRN pain; 20 tablet; Refills: 0, Product sp4 Selection Permitted - Ibuprofen 600 mg Oral Tablet - take 1 tablet ORAL route every 6 hours As needed take with food; 30 tablet; sp4 Refills: 0, Product Selection Permitted - Prednisone 20 mg Oral Tablet - take 2 tablets ORAL route once daily for 5 days; 10 tablet; Refills: 0, Product sp4 Selection Permitted Signatures: Dispatcher [employer] Servando Kincaid MD MD sp4 Tanisha Dyer RN RN nw1
[2023-11-09 09:27] VITALS: TEMP 97.7
[2023-11-09 09:33] VITALS: O2SAT 98
[2023-11-09 09:39] VITALS: BP 136/75
--- NOTE | 2023-11-09 13:49 | RAD REPORT ---
EXAM DESCRIPTION: RAD - Chest Single View - 11/09/2023 12:54 am CLINICAL HISTORY: 88 years Male, CHEST PAIN TECHNIQUE: 1 view (Single frontal view of the chest) COMPARISON: CT chest 10/20/2023 FINDINGS: LINES AND TUBES: None. CARDIOVASCULAR STRUCTURES: Normal heart size. No pulmonary venous congestion. LUNGS: No confluent areas of acute consolidation. There are multiple scattered peripherally based pul monary nodules measuring up to 1.5 cm compatible with metastases. PLEURA: No layering pleural effusions. No pneumothorax. BONES: No acute osseous abnormality of the thorax. IMPRESSION: 1. Multiple scattered peripherally based pulmonary nodules measuring up to 1.5 cm comp atible with metastases. 2. No confluent areas of acute consolidation. Electronically signed by: Jasiel Osborne MD 11/09/2023 01:01 AM BREWER HELPER Due to temporary technical issues with the PACS/Fluency reporting system, reports are being signed by the in house radiologists without review as a courtesy to insure prompt reporting. The interpreting radiologist is fully responsible for the content of the report.
--- NOTE | 2023-11-12 13:32 | EKG ---
Test Date: 2023-11-09 Test Time: 01:31:38 Project Development Engineer: AYESHA MEASUREMENT RESULTS: Intervals: Rate: 85 AK: 186 QRSD: 106 QT: 366 QTc: 435 [place]: P: 70 AK: 186 QRS: -65 T: 105 INTERPRETIVE STATEMENTS: Normal sinus rhythm Left anterior fascicular block Left ventricular hypertrophy with repolarization abnormality Abnormal ECG Compared to ECG 01/24/2019 20:07:07 No significant changes Electronically Signed On 11-12-23 13:24:42 SILO WORKER by Cleve Victoria
== END ==
LOC: ER 00:11
DX: G89.29 Other chronic pain (principal); M10.9 Gout, unspecified; M13.862 Other specified arthritis, left knee; R54 Age-related physical debility; I10 Essential (primary) hypertension; Z87.442 Personal history of urinary calculi
CPT/HCPCS: 93005; 85025; 80048; 36415; 83735; 85610; 80076; 84484; 83880; 71045; 99285; Q0169; J7512

== ENCOUNTER 2024-05-18 18:17 | Emergency (ER) | payer OTHER ==
--- OUTSIDE RECORDS SUMMARY | 2024-05-18 18:20 | XMS REPORT | Continuity of Care Document ---
Author Name Unknown Address [address] [facility] [address] thconnect Address [address] [facility] [address] [place] [address] Care Team Providers Care Instructional Design Technologist Name Role Phone Unavailable Unavailable Unavailable Payers Payer Name Policy Type Policy Number Effective Date Expirati on Date Source [employer] (MEDICARE REPLACEMENT HMO) [id number] 2022 00:00:00 Encounters Start Date/Time End Date/Time Encounter Type Admission Type Attending Clinicians Care Facility Care Department Encounter ID Source 2023-03-21 00:00:00 2023-03-21 00:00:00 Outpatient [facility] [id number] [facility] 2022-09-29 00:00:00 2022-09-29 00:00:00 Outpatient DM[facility] DMG [id number] [facility]
[2024-05-18] MEDS ORDERED: NA CHLORIDE 0.9% 1,000 ML ONE (21:14)
[2024-05-18 21:19] LABS: Absolute Basophils 0.1 K/uL (0-0.5); Absolute Eosinophils 0.1 K/uL (0-0.5); Absolute Lymphocytes (CBC) 1.2 K/uL (0.7-4.9); Absolute Monocytes 0.9 K/uL (0.1-1.3); Absolute Neutrophil 8.1 K/uL (1.8-8.0); Basophils % 0.6 % (0-1.3); Eosinophils % 1.3 % (0-4.4); Hematocrit 43.9 % (39.6-49.0); Hemoglobin 14.2 g/dL (13.6-17.9); Lymphocytes % 11.3 % (15.3-44.8); MCH 26.2 pg (27.0-35.0); MCHC 32.4 g/dL (32.0-36.0); MCV 80.9 fL (80-100); MPV 7.8 fL (7.6-11.3); Monocytes % 8.8 % (3.3-12.3); Nucleated Red Blood Cells % 0.1 % (0-0); Platelets 336 thou/uL (152-406); RBC Red Blood Cell Count 5.42 M/uL (4.33-5.43); Red Cell Distribution Width 18.1 % (12.1-15.2)
[2024-05-18 21:43] LABS: Albumin 3.2 g/dL (3.4-5.0); Albumin/Globulin Ratio 0.9 (1.1-1.8); Alkaline Phosphatase 83 U/L (45-117); Anion Gap 7.9 mEq/L (5.0-15.0); BUN Blood Urea Nitrogen 28 mg/dL (7-18); Bicarbonate 26 mEq/L (21-32); Bilirubin Total 0.7 mg/dL (0.2-1.0); Globulin 3.7 g/dL (2.3-3.5); Glomerular Filtration Rate 40 ml/min (=/>90); Glucose Level 103 mg/dL (74-106); Lipase 65 U/L (13-75); Potassium 3.9 mEq/L (3.5-5.1); Protein, Total 6.9 g/dL (6.4-8.2); Sodium Level 139 mEq/L (136-145)
[2024-05-18 21:44] LABS: ALT/SGPT < 14 U/L (16-61); AST/SGOT < 10 U/L (15-37)
[2024-05-18 22:22] LABS: Specific Gravity 1.018 (1.005-1.030); Urine Bacteria >50 /HPF (<20); Urine Bilirubin NEGATIVE (Negative); Urine Blood 3+ (Negative); Urine Clarity Extremely Turbid (Clear); Urine Color Orange (Yellow); Urine Crystals Unidentified Few /HPF (None Seen); Urine Culture Reflex Order REFLEXED; Urine Glucose NEGATIVE (Negative); Urine Ketones NEGATIVE (Negative); Urine Micro Reflex YN NO BILL MICROSCOPIC; Urine Mucus Slight /HPF (None Seen); Urine Nitrite NEGATIVE (Negative); Urine Protein 3+ (Negative); Urine RBC >50 /HPF (None Seen); Urine Urobilinogen 1+ (Normal); Urine WBC >50 /HPF (<5); Urine WBC Clump Occasional /HPF (None Seen); Urine pH 7.5 (5.0-7.0)
[2024-05-19] MEDS ORDERED: NA CHLORIDE 0.9% 100 ML ONE (00:28)
[2024-05-19] MEDS ORDERED: CEFTRIAXONE 2000 MG/VIAL ONE (00:28)
--- NOTE | 2024-05-19 00:35 | EDPHYS ---
Physician Documentation [facility] [place] Name: Steve García Age: 88 yrs Sex: Male : 1935 Arrival Date: 05/18/2024 Time: 18:17 Bed 5 Private MD: ED Physician Jarrod Szymanski HPI: 05/18 21:00 This 88 yrs old Male presents to ER via Ambulatory with complaints of Pain cp With Urination, Urinary Frequency. 21:00 The patient presents with urinary symptoms, dysuria, urinary frequency, retention. cp 21:00 Onset: The symptoms/episode began/occurred for months. Associated signs and symptoms: cp Pertinent positives: abdominal pain, Pertinent negatives: constipation, diarrhea, fever, vomiting. Severity of symptoms: in the emergency department the symptoms are unchanged, despite home interventions. Historical: - Allergies: 18:58 NKDA; db - PMHx: 18:58 Hyperlipidemia; Hypertension; Kidney stones; db - Immunization history:: Adult Immunizations unknown. - Infectious Disease History:: Denies. - Social history:: Smoking status: Patient denies any tobacco usage or history of. ROS: 21:05 Constitutional: Negative for body aches, chills, fever, poor PO intake, cp 21:05 Eyes: Negative for injury, pain, redness, and discharge, cp 21:05 ENT: Negative for drainage from ear(s), ear pain, sore throat, difficulty swallowing, difficulty handling secretions, 21:05 Cardiovascular: Negative for chest pain, 21:05 Respiratory: Negative for cough, shortness of breath, wheezing, 21:05 Abdomen/GI: Positive for abdominal pain, Negative for vomiting, diarrhea, constipation, 21:05 : Positive for urinary symptoms, 21:05 Neuro: Negative for altered mental status, dizziness, headache, weakness, 21:05 All other systems are negative, Exam: 21:10 Constitutional: The patient appears in no acute distress, alert, awake, non-toxic, well cp developed, well nourished, 21:10 Head/Face: Normocephalic, atraumatic. cp 21:10 Eyes: Periorbital structures: appear normal, Conjunctiva: normal, no exudate, no injection, Sclera: no appreciated abnormality, Lids and lashes: appear normal, bilaterally, 21:10 ENT: External ear(s): are unremarkable, Nose: is normal, Mouth: Lips: moist, Oral mucosa: pink and intact, moist, Posterior pharynx: is normal, airway is patent, no erythema, no exudate, 21:10 Chest/axilla: Inspection: normal, 21:10 Cardiovascular: Rate: normal, 21:10 Respiratory: the patient does not display signs of respiratory distress, Respirations: normal, no use of accessory muscles, no retractions, labored breathing, is not present, 21:10 Abdomen/GI: Inspection: abdomen appears normal, Bowel sounds: active, all quadrants, Palpation: soft, in all quadrants, mild abdominal tenderness, in the right lower quadrant and left lower quadrant, rebound tenderness, is not appreciated, involuntary guarding, is not appreciated, 21:10 Back: pain, is absent, 21:10 Neuro: Orientation: to person, place \T\ time. Mentation: is normal, Motor: moves all fours, no focal deficits, Vital Signs: 18:57 BP 138 / 78; Pulse 77; Resp 18; Temp 97.8; Pulse Ox 96% ; Weight 81.65 kg; Height 5 ft. db 6 in. ; 20:35 BP 127 / 79; Pulse 72; Resp 19; Pulse Ox 96% on R/A; kd3 21:54 BP 121 / 62; Pulse 79; Resp 16; Pulse Ox 96% on R/A; kd3 22:13 BP 167 / 90; Pulse 79; Resp 16; Pulse Ox 97% on R/A; kd3 22:59 BP 167 / 90; Pulse 75; Resp 18; Pulse Ox 98% on R/A; kd3 23:29 BP 148 / 84; Pulse 93; Resp 16; Pulse Ox 99% on R/A; kd3 05/19 00:26 BP 129 / 70; Pulse 87; Resp 19; Pulse Ox 96% on R/A; kd3 05/18 18:57 Body Mass Index 29.05 (81.65 kg, 167.64 cm) db MDM: 05/18 19:28 Patient medically screened. cp 05/19 00:00 Differential diagnosis: UTI, urinary retention, prostatitis, sepsis, pyelonephritis. cp 00:35 Data reviewed: vital signs, nurses notes, lab test result(s), radiologic studies, CT cp scan, and as a result, I will discharge patient. 00:35 Consideration of Admission/Observation Escalation of care including cp admission/observation considered. I considered the following discharge prescriptions or medication management in the emergency department Medications were administered in the Emergency Department. See MAR. Care significantly affected by the following chronic conditions: Hypertension. Counseling: I had a detailed discussion with the patient and/or guardian regarding the historical points, exam findings, and any diagnostic results supporting the discharge/admit diagnosis, lab results, radiology results, to return to the emergency department if symptoms worsen or persist or if there are any questions or concerns that arise at home. Response to treatment: the patient's symptoms have mildly improved after treatment, and as a result, I will discharge patient. 05/18 20:41 Order name: Urinalysis W/Microscopic; Complete Time: 22:53 05/18 20:56 Order name: CBC with Diff; Complete Time: 22:53 05/18 20:56 Order name: CMP; Complete Time: 22:53 05/18 20:56 Order name: Lipase; Complete Time: 22:53 05/18 22:25 Order name: Urine Culture [facility] 05/18 23:24 Order name: Abdomen [facility] 05/18 20:20 Order name: Bladder Scanner: pre and post void; Complete Time: 20:47 05/18 20:56 Order name: IV Saline Lock; Complete Time: 21:17 05/18 20:56 Order name: Labs collected and sent; Complete Time: 21:17 cp Administered Medications: 05/18 21:17 Drug: NS 0.9% IV 500 ml IV at calculated rate continuous Route: IV; Rate: calculated rg5 rate; Site: right antecubital; 05/19 00:33 Drug: Rocephin IV 2 grams IV at calculated rate once; Given slow IV push per pharmarcy kd3 instructions Route: IV; Rate: calculated rate; Site: right antecubital; Disposition Summary: 05/19/24 00:35 Discharge Ordered Notes: Location: Home cp Problem: new cp Symptoms: have improved cp Condition: Stable cp Diagnosis - UTI/ Urinary tract infection, site not specified cp Followup: cp - With: Private Physician - When: 2 - 3 days - Reason: Recheck today's complaints Discharge Instructions: - Discharge Summary Sheet cp - Urinary Tract Infection, Adult cp Forms: - Medication Reconciliation Form cp - Antibiotic Education cp - Prescription Opioid Use cp - Patient Portal Instructions cp - Leadership Thank You Letter cp Prescriptions: - cefpodoxime 200 mg Oral tablet - take 1 tablet ORAL route every 12 hours for 10 days with food; 20 tablet; cp Refills: 0, Product Selection Permitted Addendum: 05/21/2024 07:45 Co-signature as Attending Physician, Jarrod Szymanski MD I agree with the assessment and c uriostegui plan of care. Signatures: Dispatcher [employer] EDDC Jarrod Szymanski MD MD cha Page, Corey, PA PA Joy Roberts RN RN kd3 Caroline Joyner RN RN db Jc Cantrell RN RN rg5 Corrections: (The following items were deleted from the chart) 05/18 23:24 20:57 Abdomen Pelvis W Con+CT.RAD.BRZ ordered. [facility]
--- NOTE | 2024-05-19 00:35 | ER ---
Nurse's Notes [facility] [place] Name: Steve García Age: 88 yrs Sex: Male : 1935 Arrival Date: 05/18/2024 Time: 18:17 Bed 5 Private MD: Diagnosis: UTI/ Urinary tract infection, site not specified Presentation: 05/18 18:57 Chief complaint: Patient states: FREQUENT URINATION WITH PAIN X 5 MONTHS. STATES IS NOT db EMPTYING BLADDER AND THIS IS AN ON GOING PROBLEM. Coronavirus screen: Client denies travel out of the [place] in the last 14 days. At this time, the client does not indicate any symptoms associated with coronavirus-19. Ebola Screen: Patient negative for fever greater than or equal to 101.5 degrees Fahrenheit, and additional compatible Ebola Virus Disease symptoms Patient denies exposure to infectious person. Patient denies travel to an Ebola-affected area in the 21 days before illness onset. No symptoms or risks identified at this time. Initial Sepsis Screen: Does the patient meet any 2 criteria? No. Patient's initial sepsis screen is negative. Does the patient have a suspected source of infection? No. Patient's initial sepsis screen is negative. Risk Assessment: Do you want to hurt yourself or someone else? Patient reports no desire to harm self or others. Onset of symptoms was May 18, 2024. 18:57 Method Of Arrival: Ambulatory db 18:57 Acuity: DEANNE 3 db Triage Assessment: 18:58 General: Appears in no apparent distress. comfortable, Behavior is calm, cooperative. db Pain: Complains of pain in right leg and left leg. Neuro: Level of Consciousness is awake, alert, obeys commands, Oriented to person, place, time, situation. : Reports urgency. Historical: - Allergies: 18:58 NKDA; db - PMHx: 18:58 Hyperlipidemia; Hypertension; Kidney stones; db - Immunization history:: Adult Immunizations unknown. - Infectious Disease History:: Denies. - Social history:: Smoking status: Patient denies any tobacco usage or history of. Screenin:32 [facility] ED Fall Risk Assessment (Adult) History of falling in the last 3 months, kd3 including since admission No falls in past 3 months (0 pts) Confusion or Disorientation No (0 pts) Intoxicated or Sedated No (0 pts) Impaired Gait No (0 pts) Mobility Assist Device Used No (0 pt) Altered Elimination No (0 pt) Score/Fall Risk Level 0 - 2 = Low Risk Oriented to surroundings. Abuse screen: Denies threats or abuse. Denies injuries from another. Nutritional screening: No deficits noted. Tuberculosis screening: No symptoms or risk factors identified. Assessment: 20:31 General: Appears in no apparent distress. Behavior is calm, cooperative. General: Pt kd3 updated on plan of care and educated on bladder scanning pre and post void process. Pt verbalizes understanding. . Neuro: Level of Consciousness is awake, alert, obeys commands, Oriented to person, place, time, situation. Respiratory: Airway is patent Trachea midline Respiratory effort is even, unlabored, Respiratory pattern is regular, symmetrical. 23:00 Reassessment: Patient and/or family updated on plan of care and expected duration. Pain kd3 level reassessed. Patient is alert, oriented x 3, equal unlabored respirations, skin warm/dry/pink. 23:01 General: Called CT in regards to patient's CT scan. Pt will be scanned soon. . kd3 23:29 General: Pt returned to the room from CT and placed back on continuous monitoring. . kd3 Vital Signs: 18:57 BP 138 / 78; Pulse 77; Resp 18; Temp 97.8; Pulse Ox 96% ; Weight 81.65 kg; Height 5 ft. db 6 in. ; 20:35 BP 127 / 79; Pulse 72; Resp 19; Pulse Ox 96% on R/A; kd3 21:54 BP 121 / 62; Pulse 79; Resp 16; Pulse Ox 96% on R/A; kd3 22:13 BP 167 / 90; Pulse 79; Resp 16; Pulse Ox 97% on R/A; kd3 22:59 BP 167 / 90; Pulse 75; Resp 18; Pulse Ox 98% on R/A; kd3 23:29 BP 148 / 84; Pulse 93; Resp 16; Pulse Ox 99% on R/A; kd3 05/19 00:26 BP 129 / 70; Pulse 87; Resp 19; Pulse Ox 96% on R/A; kd3 05/18 18:57 Body Mass Index 29.05 (81.65 kg, 167.64 cm) db ED Course: 05/18 18:20 Patient arrived in ED. im 18:58 Triage completed. db 18:59 Arm band placed on Patient placed in waiting room. db 19:28 Jarrod Cavanaugh PA is PHCP. cp 19:28 Jarrod Szymanski MD is Attending Physician. cp 20:23 Joy Sims, RN is Primary Nurse. kd3 20:32 Patient has correct armband on for positive identification. kd3 20:47 Door closed. Noise minimized. Warm blanket given. Verbal reassurance given. bm8 20:47 Bladder scan completed. post void 0 ml. bm8 21:18 Inserted saline lock: 20 gauge in right antecubital area, using aseptic technique. rg5 Blood collected. 21:48 Urinalysis W/Microscopic Sent. kd3 23:24 Abdomen In Process Unspecified. EDMS 05/19 01:12 Provided Education on: UTI. kd3 01:12 No provider procedures requiring assistance completed. IV discontinued, intact, kd3 bleeding controlled, No redness/swelling at site. Pressure dressing applied. Administered Medications: 05/18 21:17 Drug: NS 0.9% IV 500 ml IV at calculated rate continuous Route: IV; Rate: calculated rg5 rate; Site: right antecubital; 05/19 00:33 Drug: Rocephin IV 2 grams IV at calculated rate once; Given slow IV push per pharmarcy kd3 instructions Route: IV; Rate: calculated rate; Site: right antecubital; Medication: 05/18 20:32 VIS not applicable for this client. kd3 Outcome: 05/19 00:35 Discharge ordered by . cp 01:12 Discharged to home ambulatory, with family, kd3 01:12 Condition: stable 01:12 Discharge instructions given to patient, family, Instructed on discharge instructions, follow up and referral plans. Demonstrated understanding of instructions, follow-up care, medications, Prescriptions given X 1, 01:13 Patient left the ED. kd3 Signatures: Dispatcher [employer] EDND Jarrod Cavanaugh PA PA cp Doucette, Kyli, RN RN kd3 Caroline Joyner RN RN Natalie Castle Brad, RN RN bm8 Jc Cantrell RN RN rg5
[2024-05-19 01:40] VITALS: TEMP 97.8; O2SAT 96
[2024-05-19 01:57] VITALS: BP 129/70
--- NOTE | 2024-05-19 16:46 | RAD REPORT ---
EXAM DESCRIPTION: CT - Abdomen Pelvis Wo Contrast - 05/19/2024 6:48 am CLINICAL HISTORY: 88 years, Male, ABD PAIN COMPARISON: None TECHNIQUE: Noncontrast images of the abdomen and pelvis were performed utilizing 3 mm slight thickne ss at 3 mm interval reconstruction from the lung bases to the ischial tuberosities. In addition multiplanar reformats in the coronal and sagittal plane were obtained and reviewed. An individualized dose optimization technique, Automated Exposure Control, was utilized for the perfo rmed procedure. FINDINGS: The lack of IV contrast limits evaluation of solid organs, subtle lesions cannot be exclud ed. Lung bases: The lung bases demonstrated presence of compressive atelectatic changes posterior CP angl es. Several right pulmonary nodules/lesions largest one right posterior subpleural aspect 2.8 x 1.8 c m in image 22. Liver: Grossly the unopacified liver demonstrates to be normal, no focal lesions are identified. Gallbladder: Grossly the unopacified gallbladder demonstrate to be normal. Adrenal glands: Grossly the unopacified adrenal glands demonstrate to be normal. Pancreas: Grossly the unopacified pancreas demonstrate to be normal Spleen: The spleen demonstrate to be normal. Kidneys: There is status post right nephrectomy with no evidence for significant local recurrence. The left kidney demonstrate midpole renal calculus measuring 2.8 mm on image 67. There are several re nal cysts with the largest one midpole measuring 4.7 cm on image 65 and hyperdense cyst exophytic upp er pole measuring 3 cm on image 53. GI: Grossly the unopacified stomach, small bowel and large bowel demonstrate to be within normal limi ts. No evidence for bowel dilatation and/or free air. The appendix is normal. The left-sided colon de monstrate to be decompressed with no gross abnormalities. : The urinary bladder demonstrate suboptimal distention with small amount of gas/air. Genitalia: The prostate gland demonstrate to be enlarged corresponding to BPH. Abdominal aorta: The aorta demonstrate demonstrate to be within normal limits. Retroperitoneum: There is no retroperitoneal lymphadenopathy. There is no evidence for ascites and/or abnormal fluid collections. Bones: The bones demonstrate to be demineralized with minimal degenerative changes and diffuse anteri or spondylosis throughout the lumbar spine. Soft tissues: There is a small left inguinal hernia containing omentum. IMPRESSION: Status post right nephrectomy with no evidence for significant local recurrence. Several right pulmonary nodules/lesions largest one right posterior subpleural aspect 2.8 x 1.8 cm, s uspicious for metastatic disease. Left nephrolithiasis with no evidence for hydronephrosis. Bosniak class II measuring 4.7 cm. Renal BPR is not applicable because the patient has a history or syndrome predisposing to renal malig luzma. JACR 2017; 264-273, Management of the Incidental Renal Mass on CT, [employer] 2020; 814-848, B osniak Classification of Cystic Renal Masses, Version 2019. Enlarged prostate gland corresponding to BPH. Small left inguinal hernia containing omentum. Electronically signed by: Son Priest MD 05/18/2024 11:59 PM CDT RP Due to temporary technical issues with the PACS/Fluency reporting system, reports are being signed by the in house radiologists without review as a courtesy to insure prompt reporting. The interpreting radiologist is fully responsible for the content of the report.
== END 2024-05-19 01:13 | disposition home or self-care (01) ==
LOC: ER 18:17
DX: N39.0 Urinary tract infection, site not specified (principal); Z87.442 Personal history of urinary calculi
CPT/HCPCS: 87088; 85025; 81001; 87086; 36415; 87077; 87186; 83690; 80053; 74176; 96374; 99284; J0696; J7030

== ENCOUNTER 2024-08-09 12:45 | Emergency (ER) | payer OTHER ==
--- OUTSIDE RECORDS SUMMARY | 2024-08-09 12:48 | XMS REPORT | Continuity of Care Document ---
Author Name Unknown Address [address] [place] [address] thconnect Address [address] [place] [address] 1 [address] [place] [address] Care Team Providers Care Inspector [employer] Name Role Phone Unavailable Unavailable Unavailable Payers Payer Name Policy Type Policy Number Effective Date Expirati on Date Source [employer] (MEDICARE REPLACEMENT HMO) [id number] 00:00:00 Encounters Start Date/Time End Date/Time Encounter Type Admission Type Attending [facility] Care Department Encounter ID Source 2023-03-21 00:00:00 2023-03-21 00:00:00 Outpatient [facility] [id number] [facility] 2022-09-29 00:00:00 2022-09-29 00:00:00 Outpatient [facility] DMG [id number] [facility]
--- NOTE | 2024-08-09 14:07 | RAD REPORT ---
EXAM: CT brain without contrast HISTORY: [facility] PAIN Bed Name: 4 COMPARISON: None TECHNIQUE: Multiple contiguous axial images were obtained and a CT of the brain without contrast. Sag ittal and coronal reformats were performed. FINDINGS: No evidence of hydrocephalus, intracranial hemorrhage, or extra-axial fluid collection. Moderate brain atrophy with moderate periventricular and deep white matter chronic microvascular isc hemic changes present. The calvarium is intact. The visualized paranasal sinuses and mastoid air cells are essentially clear . IMPRESSION: No evidence of acute intracranial abnormality. EXAM: CT of the cervical spine without contrast HISTORY: [facility] PAIN Bed Name: 4 COMPARISON: None TECHNIQUE: Multiple contiguous axial images were obtained in a CT of the cervical spine without contr ast. Sagittal and coronal reformats were performed. FINDINGS: The vertebral bodies demonstrate normal height and alignment. No evidence of acute fracture or sublux ation.. No degenerative changes are present. No prevertebral soft tissue swelling is seen. The posterior facets are well aligned. Normal alignment of the skull base with the cervical spine is seen. Ielh-gz-btxgigzm degenerative changes throughout, with mild to moderate degrees of neural foraminal narrowing bilaterally most pronounced at C6-7 and C7-T1. 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 The lung apices are unremarkable. IMPRESSION: No evidence of acute osseous abnormality of the cervical spine. Chronic findings as above.
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
[2024-08-09 14:46] LABS: Specific Gravity 1.019 (1.005-1.030); Urine Bacteria <20 /HPF (<20); Urine Bilirubin NEGATIVE (Negative); Urine Blood 3+ (Negative); Urine Clarity Extremely Turbid (Clear); Urine Color Light-Orange (Yellow); Urine Crystals Unidentified Moderate /HPF (None Seen); Urine Culture Reflex Order REFLEXED; Urine Glucose NEGATIVE (Negative); Urine Ketones NEGATIVE (Negative); Urine Microscopic Reflex YN ORDER UMIC; Urine Mucus 2+ /HPF (None Seen); Urine Nitrite NEGATIVE (Negative); Urine Protein 3+ (Negative); Urine RBC >50 /HPF (None Seen); Urine Urobilinogen Normal (Normal); Urine WBC >50 /HPF (<5); Urine WBC Clump Many /HPF (None Seen); Urine Yeast (Budding) Many /HPF (None Seen); Urine pH 6.5 (5.0-7.0)
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
[2024-08-09 16:39] VITALS: BP 136/70; TEMP 97.7; O2SAT 96
== END 2024-08-09 16:02 | disposition home or self-care (01) ==
LOC: ER 12:45
DX: M54.2 Cervicalgia (principal); M54.50 Low back pain, unspecified; N39.0 Urinary tract infection, site not specified; V49.40XA Driver injured in collision with unspecified motor vehicles in traffic accident, initial encounter; I10 Essential (primary) hypertension; E78.5 Hyperlipidemia, unspecified
CPT/HCPCS: 70450; 71045; 72125; 72131; 81001; 87077; 87086; 87088; 87186; 99284

== ENCOUNTER 2025-03-27 17:42 | Emergency (ER) | payer OTHER ==
--- OUTSIDE RECORDS SUMMARY | 2025-03-27 17:45 | XMS REPORT | Continuity of Care Document ---
Author Name Unknown Address [address] [place] [address] [address] [address] 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
[2025-03-27 18:56] LABS: Absolute Basophils 0.1 K/uL (0-0.5); Absolute Eosinophils 0.6 K/uL (0-0.5); Absolute Lymphocytes (CBC) 1.4 K/uL (0.7-4.9); Absolute Monocytes 0.8 K/uL (0.1-1.3); Absolute Neutrophil 4.8 K/uL (1.8-8.0); Basophils % 0.8 % (0-1.3); Eosinophils % 7.6 % (0-4.4); Hemoglobin 13.8 g/dL (13.6-17.9); MCH 27.2 pg (27.0-35.0); MCV 82.5 fL (80-100); MPV 8.3 fL (7.6-11.3); Monocytes % 10.2 % (3.3-12.3); Neutrophils % 63.4 % (41.7-73.7); Nucleated Red Blood Cells % 0.2 % (0-0); Platelets 235 thou/uL (152-406); RBC Red Blood Cell Count 5.09 M/uL (4.33-5.43); Red Cell Distribution Width 18.5 % (12.1-15.2)
[2025-03-27 19:02] LABS: PT Prothrombin Time 11.5 SECONDS (10-13.0); Protime INR 1.01
[2025-03-27 19:18] LABS: Anion Gap 6.9 mEq/L (5.0-15.0); Magnesium 2.3 mg/dL (1.6-2.4); Potassium 3.9 mEq/L (3.5-5.1)
--- NOTE | 2025-03-27 19:58 | RAD REPORT ---
EXAMINATION: CT HEAD WITHOUT CONTRAST CT CERVICAL SPINE WITHOUT CONTRAST CLINICAL INDICATION: Head and neck injury status post fall. Head and neck pain TECHNIQUE: Axial CT images from the skull base to the vertex without intravenous contrast. Axial CT i mages through the cervical spine were obtained without intravenous contrast. Sagittal and coronal reformatted images were created from the data set. Coronal and sagittal reformatted images were creat ed from the data set. One or more of the following dose reduction techniques were used: Automated exposure control, adjustment of the mA and/or kV according to patient size, and/or iterative reconstr uction. Unless otherwise specified, incidental findings do not require dedicated imaging follow-up. [id number]. Comparison: 2023 FINDINGS: An intracranial bleed is not seen. Ventricles are normal in caliber. No significant hypodensity within the brain No extra-axial fluid collection. No fluid within the sinuses/mastoids No fracture or dislocation is seen involving the cervical spine. Spondylosis cervical spine results i n central and foraminal stenosis. Prominent ossification anterior longitudinal ligament. IMPRESSION: No acute intracranial abnormality noted A cervical fracture is not seen. If the patient continues to have symptoms to suggest acute FINANCIAL HEALTH COUNSELOR/spinal pathology then MRI would be rec ommended
--- NOTE | 2025-03-27 20:11 | RAD REPORT ---
EXAM: CT CHEST, ABDOMEN AND PELVIS WITHOUT CONTRAST CLINICAL INDICATION: Chest and abdominal pain status post fall TECHNIQUE: CT chest, abdomen and pelvis was performed, without IV contrast, as per department protoco l. Axial, sagittal and coronal reconstructions were obtained. One or more of the following dose reduction techniques were used: Automated exposure control, adjustment of the mA and/or kV according to the patient size, and/or iterative reconstruction. Unless otherwise specified, incidental findings do not require dedicated imaging follow-up. The lack of IV and oral contrast limits evaluation of the mediastinum, mauricio, vessels, organs and moe l. COMPARISON: None FINDINGS: No pulmonary contusion. A mediastinal hematoma not noted. No pleural effusion. No pericardial effusion. Multiple, bilateral pulmonary nodules. The largest right lower lobe measuring 3.2 cm. These aren't en larged from 2023 CT abdomen Liver, spleen, pancreas, adrenals kidneys and bladder do not demonstrate a traumatic injury. Right nephrectomy. Several left renal masses presumably cysts although evaluation limited secondary lack of IV contrast administration. 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 There is no evidence of diverticulitis IMPRESSION: No acute traumatic injury seen. Multiple, bilateral pulmonary nodules metastases. 3.4 cm lesion appears to arise from the left adrenal gland likely a metastasis.
--- NOTE | 2025-03-27 20:13 | RAD REPORT ---
Procedure: Chest Single View HISTORY: Chest pain status post fall COMPARISON: 2023 FINDINGS: Multiple, bilateral pulmonary nodules consistent with metastases. Heart is normal size. No significant pleural effusion
--- NOTE | 2025-03-27 20:15 | RAD REPORT ---
EXAM:Ankle Right 3 View CLINICAL HISTORY: Ankle pain FINDINGS: No fracture or dislocation seen.
[2025-03-27] MEDS ORDERED: KETOROLAC 30 MG/ML INJ ONE (20:25)
--- NOTE | 2025-03-27 21:33 | ER ---
Nurse's Notes [facility] Name: Steve García Age: 89 yrs Sex: Male : 1935 Arrival Date: 03/27/2025 Time: 17:42 Bed 11 Private MD: Diagnosis: Fall on same level from slipping, tripping and stumbling with subsequent striking against object;Dorsalgia, unspecified Presentation: 03/27 18:02 Chief complaint: EMS states: Pt has chronic back pain, fell in the bathroom and now it jb4 hurts worse. No LOC. Coronavirus screen: At this time, the client does not indicate any symptoms associated with coronavirus-19. Ebola Screen: No symptoms or risks identified at this time. Initial Sepsis Screen: Does the patient meet any 2 criteria? No. Patient's initial sepsis screen is negative. Does the patient have a suspected source of infection? No. Patient's initial sepsis screen is negative. Risk Assessment: Do you want to hurt yourself or someone else? Patient reports no desire to harm self or others. Onset of symptoms was March 27, 2025. Transition of care: patient was not received from another setting of care. 18:02 Method Of Arrival: EMS: [facility] jb4 18:02 Acuity: DEANNE 3 jb4 Historical: - Allergies: 17:55 NKDA; ll1 - PMHx: 17:55 Hyperlipidemia; Hypertension; Kidney stones; ll1 18:03 Dementia; jb4 - Immunization history:: Adult Immunizations up to date. - Infectious Disease History:: Denies. - Social history:: Smoking status: Patient denies any tobacco usage or history of. Screenin:44 [facility] ED Fall Risk Assessment (Adult) History of falling in the last 3 months, jb4 including since admission Yes- single mechanical fall (1 pt) Confusion or Disorientation No (0 pts) Intoxicated or Sedated No (0 pts) Impaired Gait No (0 pts) Mobility Assist Device Used No (0 pt) Altered Elimination No (0 pt) Score/Fall Risk Level 0 - 2 = Low Risk Oriented to surroundings, Maintained a safe environment. Abuse screen: Denies threats or abuse. Nutritional screening: No deficits noted. Tuberculosis screening: No symptoms or risk factors identified. Assessment: 18:44 General: Appears in no apparent distress. comfortable, Behavior is calm, cooperative, jb4 appropriate for age. Pain: Complains of pain in back Pain does not radiate. Pain currently is 4 out of 10 on a pain scale. Neuro: Level of Consciousness is awake, alert, obeys commands, Oriented to person, place, situation. Cardiovascular: Patient's skin is warm and dry. Respiratory: Airway is patent Respiratory effort is even, unlabored, Respiratory pattern is regular, symmetrical. Derm: Skin is intact, Skin is pink, warm \\T\\ dry. Musculoskeletal: Circulation, motion, and sensation intact. Range of motion: intact in all extremities. 20:07 Reassessment: Patient appears in no apparent distress at this time. Patient and/or jb4 family updated on plan of care and expected duration. Pain level reassessed. Patient is alert, oriented x 3, equal unlabored respirations, skin warm/dry/pink. Pt cleaned and changed. Pt noted to be incontinent, placed on pure wick. ER provider notified when asked about Urine sample. ER provider states " I plan to discharge him, I am not going to wait on the urine.". 21:10 Reassessment: Patient appears in no apparent distress at this time. Patient and/or jb4 family updated on plan of care and expected duration. Pain level reassessed. Patient is alert, oriented x 3, equal unlabored respirations, skin warm/dry/pink. 21:56 Reassessment: D/c pending ride home. Pt placed in paper scrubs and given no risk socks. jb4 23:42 Reassessment: Patient appears in no apparent distress at this time. No changes from vc1 previously documented assessment. Patient and/or family updated on plan of care and expected duration. Pain level reassessed. Patient is alert, oriented x 3, equal unlabored respirations, skin warm/dry/pink. Vital Signs: 18:37 BP 154 / 90; Pulse 68; Resp 16; Temp 98.1(O); Pulse Ox 95% on R/A; Weight 77.11 kg (M); jb4 Height 5 ft. 8 in. (R); 20:07 BP 155 / 78; Pulse 80; Resp 16; Pulse Ox 95% on R/A; jb4 21:10 BP 125 / 69; Pulse 77; Resp 16; Pulse Ox 95% on R/A; jb4 18:37 Body Mass Index 25.85 (77.11 kg, 172.72 cm) jb4 ED Course: 17:46 Patient arrived in ED. gl 17:53 Jarrod Cavanaugh PA is PHCP. cp 17:53 Neris Ware MD is Attending Physician. cp 17:55 Arm band placed on. ll1 18:03 Triage completed. jb4 18:36 Inserted saline lock: 18 gauge in left antecubital area, using aseptic technique. Blood jb4 collected. 18:37 Basic Metabolic Panel Sent. jb4 18:37 CBC with Diff Sent. jb4 18:37 Magnesium Sent. jb4 18:37 Troponin HS Sent. jb4 18:37 PT-INR Sent. jb4 18:44 Patient has correct armband on for positive identification. Bed in low position. Call jb4 light in reach. Side rails up X 1. Provided Education on: plan of care. 18:44 No provider procedures requiring assistance completed. jb4 18:45 Marquis Herrera, RN is Primary Nurse. jb4 18:56 XRAY Ankle RIGHT 3 view In Process Unspecified. EDMS 18:57 XRAY Chest (1 view) In Process Unspecified. EDMS 19:08 Head C Spine Mpr Wo Con In Process Unspecified. EDMS 19:08 Chest Abd Pelvis Wo Con In Process Unspecified. EDMS 21:56 IV discontinued, intact, bleeding controlled, No redness/swelling at site. Pressure jb4 dressing applied. Administered Medications: 20:36 Drug: Ketorolac IVP 15 mg IVP once Route: IVP; Site: left antecubital; jb4 21:57 Follow up: Response: No adverse reaction; Marked relief of symptoms; Pain is decreased jb4 Medication: 18:44 VIS not applicable for this client. jb4 Outcome: 21:32 Discharge ordered by . cp 23:42 Discharged to home via wheelchair, with family, vc1 23:42 Condition: stable 23:42 Discharge instructions given to patient, family, Instructed on discharge instructions, follow up and referral plans. Demonstrated understanding of instructions, follow-up care, 23:42 Patient left the ED. vc1 Signatures: Dispatcher [employer] EDMS Jarrod Cavanaugh PA PA cp Marquis Herrera RN RN jb4 Pablo Pat RN RN 1 Genevieve Sommers RN RN vc1 Ritchie, Roxanne, Reg Reg gl Corrections: (The following items were deleted from the chart) 18:04 18:02 Acuity: DEANNE 4 jb4 jb4 18:57 18:37 CREATINE PHOSPHOKINASE+C.LAB.BRZ drawn and sent. jb4 EDMS 21:57 21:56 Reassessment: D/c pending ride home jb4 jb4 23:45 20:07 Reassessment: Patient appears in no apparent distress at this time. Patient jb4 and/or family updated on plan of care and expected duration. Pain level reassessed. Patient is alert, oriented x 3, equal unlabored respirations, skin warm/dry/pink. jb4
--- NOTE | 2025-03-27 21:33 | EDPHYS ---
Physician Documentation [facility] Name: Steve García Age: 89 yrs Sex: Male : 1935 Arrival Date: 03/27/2025 Time: 17:42 Bed 11 Private MD: ED Physician Neris Ware HPI: 03/27 18:00 This 89 yrs old Male presents to ER via EMS with complaints of Fall and Back cp Pain. 18:00 Details of fall: The patient fell from an upright position, while walking. cp 18:00 Onset: The symptoms/episode began/occurred just prior to arrival. Associated injuries: cp The patient sustained mid back. 18:00 Severity of symptoms: in the emergency department the symptoms are unchanged, despite cp EMS interventions. Historical: - Allergies: 17:55 NKDA; ll1 - PMHx: 17:55 Hyperlipidemia; Hypertension; Kidney stones; ll1 18:03 Dementia; jb4 - Immunization history:: Adult Immunizations up to date. - Infectious Disease History:: Denies. - Social history:: Smoking status: Patient denies any tobacco usage or history of. ROS: 18:05 Back: Positive for pain at rest, pain with movement, of the mid back, cp 18:05 MS/extremity: Positive for pain, of the left ankle, 18:05 Constitutional: Negative for body aches, chills, fever, poor PO intake, cp 18:05 Cardiovascular: Negative for chest pain, edema, palpitations, 18:05 Respiratory: Negative for cough, shortness of breath, wheezing, 18:05 Abdomen/GI: Negative for abdominal pain, nausea, vomiting, and diarrhea, 18:05 Eyes: Negative for injury, pain, redness, and discharge, cp 18:05 ENT: Negative for drainage from ear(s), ear pain, sore throat, difficulty swallowing, difficulty handling secretions, 18:05 Neuro: Positive for weakness, Negative for altered mental status, headache, loss of cp consciousness, syncope, 18:05 All other systems are negative, Exam: 18:10 Constitutional: The patient appears in no acute distress, alert, awake, cp non-diaphoretic, non-toxic, well developed, well nourished, 18:10 Head/Face: Normocephalic, atraumatic. cp 18:10 Eyes: Periorbital structures: appear normal, Pupils: equal, round, and reactive to light and accomodation, Extraocular movements: intact throughout, Conjunctiva: normal, no exudate, no injection, Sclera: no appreciated abnormality, Lids and lashes: appear normal, bilaterally, 18:10 ENT: External ear(s): are unremarkable, Nose: is normal, Mouth: Lips: moist, Oral mucosa: moist, Posterior pharynx: Airway: no evidence of obstruction, patent, 18:10 Neck: C-spine: vertebral tenderness, is not appreciated, crepitus, is not appreciated, 18:10 Chest/axilla: Inspection: normal, Palpation: is normal, no crepitus, no tenderness, 18:10 Cardiovascular: Rate: normal, Rhythm: regular, Edema: is not appreciated, JVD: is not appreciated, 18:10 Respiratory: the patient does not display signs of respiratory distress, Respirations: normal, no use of accessory muscles, no retractions, labored breathing, is not present, intercostal retractions, are absent, Breath sounds: decreased breath sounds, are not appreciated, stridor, is not appreciated, wheezing: is not appreciated, 18:10 Abdomen/GI: Inspection: abdomen appears normal, Palpation: abdomen is soft and non-tender, in all quadrants, 18:10 Back: pain, that is moderate, of the thoracic area and lumbar area, ROM is painful, 18:10 Skin: cellulitis, is not appreciated, no rash present. 18:10 Neuro: Orientation: to person, situation, Mentation: no acute changes, per EMS, able to follow commands, Motor: moves all fours, no focal deficits, Sensation: no obvious gross deficits, 18:23 ECG was reviewed by the Attending Physician. cp Vital Signs: 18:37 BP 154 / 90; Pulse 68; Resp 16; Temp 98.1(O); Pulse Ox 95% on R/A; Weight 77.11 kg (M); jb4 Height 5 ft. 8 in. (R); 20:07 BP 155 / 78; Pulse 80; Resp 16; Pulse Ox 95% on R/A; jb4 21:10 BP 125 / 69; Pulse 77; Resp 16; Pulse Ox 95% on R/A; jb4 18:37 Body Mass Index 25.85 (77.11 kg, 172.72 cm) jb4 MDM: 17:55 Medical Screening Exam initiated 18:15 Differential diagnosis: closed head injury, contusion, fracture, laceration, multiple cp trauma, cardiac arrhythmia, acute ND, CVA. 21:31 Data reviewed: vital signs, nurses notes, lab test result(s), EKG, radiologic studies, cp CT scan, and as a result, I will discharge patient. 21:31 Consideration of Admission/Observation Escalation of care including cp admission/observation considered. I considered the following discharge prescriptions or medication management in the emergency department Medications were administered in the Emergency Department. See MAR. Independent interpretation of the following test(s) in the Emergency Department EKG: See my EKG interpretation above. Care significantly affected by the following chronic conditions: Hypertension, dementia. Response to treatment: the patient's symptoms have mildly improved after treatment, and as a result, I will discharge patient. 03/27 17:55 Order name: Basic Metabolic Panel; Complete Time: 20:19 03/27 20:19 Interpretation: Normal except: CL 110; GFR 54. 03/27 17:55 Order name: CBC with Diff; Complete Time: 19:05 03/27 19:05 Interpretation: Normal except: RDW 18.5; EOSINOPHIL % 7.6; EOSA 0.6. 03/27 17:55 Order name: Magnesium; Complete Time: 20:19 03/27 17:55 Order name: PT-INR; Complete Time: 19:05 03/27 17:55 Order name: Troponin HS; Complete Time: 20:19 03/27 20:19 Interpretation: Reviewed. 03/27 18:56 Order name: Creatine Phosphokinase; Complete Time: 20:19 EDME 03/27 20:21 Interpretation: Reviewed. 03/27 17:53 Order name: XRAY Ankle RIGHT 3 view; Complete Time: 20:19 03/27 20:19 Interpretation: Report reviewed. 03/27 17:55 Order name: XRAY Chest (1 view); Complete Time: 20:19 03/27 20:19 Interpretation: Report review. 03/27 18:15 Order name: Head C Spine Mpr Wo Con; Complete Time: 20:19 EDME 03/27 18:16 Order name: Chest Abd Pelvis Wo Con; Complete Time: 20:19 EDME 03/27 17:55 Order name: EKG; Complete Time: 17:56 cp 03/27 17:55 Order name: Cardiac monitoring; Complete Time: 18:26 03/27 17:55 Order name: EKG - Nurse/Tech; Complete Time: 18:26 cp 03/27 17:55 Order name: IV Saline Lock; Complete Time: 18:37 cp 03/27 17:55 Order name: Labs collected and sent; Complete Time: 18:37 03/27 17:55 Order name: O2 Per Protocol; Complete Time: 18:26 cp 03/27 17:55 Order name: O2 Sat Monitoring; Complete Time: 18:26 cp EC:23 Rate is 76 beats/min. Rhythm is regular. NH interval is prolonged. QRS interval is cp prolonged at 136 msec. QT interval is normal. T waves are Inverted in lead aVR. Interpreted by me. Reviewed by me. Administered Medications: 20:36 Drug: Ketorolac IVP 15 mg IVP once Route: IVP; Site: left [facility]cubital; [facility] 21:57 Follow up: Response: No adverse reaction; Marked relief of symptoms; Pain is decreased jb4 Disposition Summary: 03/27/25 21:32 Discharge Ordered Notes: Location: Home cp Problem: new cp Symptoms: have improved cp Condition: Stable cp Diagnosis - Fall on same level from slipping, tripping and stumbling with subsequent striking cp against object - Dorsalgia, unspecified cp Followup: cp - With: Private Physician - When: 2 - 3 days - Reason: Worsening of condition Discharge Instructions: - Discharge Summary Sheet cp - Acute Back Pain, Adult cp - Fall Prevention in the Home, Adult cp - Understanding Your Risk for Falls cp Forms: - Medication Reconciliation Form cp - Antibiotic Education cp - Prescription Opioid Use cp - Patient Portal Instructions cp - Leadership Thank You Letter cp Signatures: Dispatcher [employer] EDMS Jarrod Cavanaugh PA PA cp Marquis Herrera RN RN jb4 Pablo Pat RN RN ll1 Corrections: (The following items were deleted from the chart) 17:54 17:54 Ankle Right 3 View+RAD.RAD.BRZ ordered. EDMS EDMS 17:56 17:56 UA Rfx Andi Cult if indicated+U.LAB.BRZ ordered. EDMS EDMS 17:56 17:56 BASIC METABOLIC PANEL+C.LAB.BRZ ordered. EDMS EDMS 17:56 17:56 CBC+H.LAB.BRZ ordered. EDMS EDMS 17:56 17:56 MAGNESIUM+C.LAB.BRZ ordered. EDMS EDMS 17:56 17:56 PROTIME (+INR)+COAG.LAB.BRZ ordered. EDMS EDMS 17:56 17:56 Troponin High Sensitivity+C.LAB.BRZ ordered. EDMS EDMS 18:15 17:54 Head C Spine Cap Wo Con+CT.RAD.BRZ ordered. EDMS EDMS 18:57 17:54 CREATINE PHOSPHOKINASE+C.LAB.BRZ ordered. EDMS EDMS
[2025-03-28 00:17] VITALS: TEMP 98.1; O2SAT 95
[2025-03-28 00:21] VITALS: BP 125/69
--- NOTE | 2025-03-29 12:24 | EKG ---
Test Date: 2025-03-27 Test Time: 18:15:57 [employer] Operator: NIKKI MEASUREMENT RESULTS: Intervals: Rate: 76 [place]: 240 QRSD: 136 QT: 434 QTc: 488 [place]: P: 60 [place]: 240 QRS: -61 T: 67 INTERPRETIVE STATEMENTS: Sinus rhythm with 1st degree AV block Right bundle branch block Left anterior fascicular block Bifascicular block Minimal voltage criteria for LVH, may be normal variant Septal infarct, age undetermined Possible Lateral infarct, age undetermined Abnormal ECG Compared to ECG 11/09/2023 01:31:38 First degree AV block now present Right bundle-branch block now present Bifascicular block now present Myocardial infarct finding now present Early repolarization no longer present Electronically Signed On 03-29-25 12:21:20 CDT by Олег Narvaez
== END 2025-03-27 23:42 | disposition home or self-care (01) ==
LOC: ER 17:42
DX: M54.9 Dorsalgia, unspecified (principal); M25.572 Pain in left ankle and joints of left foot; W01.10XA Fall on same level from slipping, tripping and stumbling with subsequent striking against unspecified object, initial encounter
CPT/HCPCS: 36415; 70450; 71045; 71250; 72125; 74176; 80048; 82550; 83735; 84484; 85025; 85610; 93005; 96374; 99284

== ENCOUNTER 2025-09-05 15:33 | Emergency (ER) | payer OTHER ==
--- OUTSIDE RECORDS SUMMARY | 2025-09-05 15:36 | XMS REPORT | Continuity of Care Document ---
Author Name Unknown Address [address] [place] [address] [place] [address] [address] [place] [address] Care Team Providers Care Relationship Management Lead Name Role Phone Unavailable Unavailable Unavailable Payers Payer Name Policy Type Policy Number Effective Date Expirati on Date Source [facility] (MEDICARE REPLACEMENT HMO) [id number] 00:00:00
[2025-09-05 16:23] LABS: Absolute Lymphocytes (CBC) 1.2 K/uL (0.7-4.9); Hematocrit 42.6 % (39.6-49.0); Hemoglobin 13.7 g/dL (13.6-17.9); MCH 26.2 pg (27.0-35.0); MCHC 32.2 g/dL (32.0-36.0); MCV 81.3 fL (80-100); MPV 7.8 fL (7.6-11.3); Nucleated RBC Absolute Count 0.0 (0-0); Nucleated Red Blood Cells % 0.0 % (0-0); RBC Red Blood Cell Count 5.24 M/uL (4.33-5.43); White Blood Count 6.90 thou/uL (4.3-10.9)
[2025-09-05 16:38] LABS: Anion Gap 7.2 mEq/L (5.0-15.0); BUN Blood Urea Nitrogen 23.0 mg/dL (7-18); Glucose Level 114.0 mg/dL (74-106); Potassium 4.2 mEq/L (3.5-5.1)
--- NOTE | 2025-09-05 16:55 | RAD REPORT ---
EXAM: CT brain without contrast HISTORY: fall COMPARISON: 03/27/2025 TECHNIQUE: Multiple contiguous axial images were obtained and a CT of the brain without contrast. Sag ittal and coronal reformats were performed. FINDINGS: No evidence of hydrocephalus, intracranial hemorrhage, or extra-axial fluid collection. Moderate brain atrophy with moderate periventricular and deep white matter chronic microvascular isc hemic changes present. The calvarium is intact. Mild right supraorbital scalp swelling. Mild polypoidal callosal thickening in the maxillary sinuses bilaterally. The visualized mastoid air cells are essentially clear. IMPRESSION: No evidence of acute intracranial abnormality. Mild right supraorbital scalp swelling. EXAM: CT of the cervical spine without contrast HISTORY: fall COMPARISON: None TECHNIQUE: Multiple contiguous axial images were obtained in a CT of the cervical spine without contr ast. Sagittal and coronal reformats were performed. FINDINGS: The vertebral bodies demonstrate normal height and alignment. No evidence of acute fracture or subluxation.. Mild to moderate endplate and facet degenerative changes, most notably at C6-7 and C7-T1 contributing to mild degrees of neural foraminal narrowing. 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 No prevertebral soft tissue swelling is seen. The posterior facets are well aligned. Normal alignment of the skull base with the cervical spine is seen. The lung apices are unremarkable. IMPRESSION: No evidence of acute osseous abnormality of the cervical spine. Degenerative changes as above.
--- NOTE | 2025-09-05 17:07 | RAD REPORT ---
EXAM: Thoracic Spine W/o Cont HISTORY: [facility] MA[facility] fall Bed Name: 8 COMPARISON: CT chest 03/27/2025 TECHNIQUE: Multiple contiguous axial images were obtained in a CT of the thoracic spine without contr ast. Sagittal and coronal reformats were performed. One or more of the following dose reduction techniques were used: Automated exposure control, adjustment of the mA and kV according to patient si ze, and iterative reconstruction. Unless otherwise specified, incidental findings do not require dedicated imaging follow-up. FINDINGS: The vertebral bodies and intervertebral discs demonstrate normal height and alignment witho ut fracture or subluxation. Multilevel moderate endplate osteophytosis with bridging. Mild to moderate multilevel facet remodeling contributing to mild to moderate degrees of neural foraminal rpasanna rowing at T3-4 and T4-5 on the right. Multiple lung masses/nodules, largest 2 are in the right lower lobe, measuring 3.0 x 3.1 and 3.5 x 2. 3 cm respectively. Numerous left adrenal nodules/masses, largest superiorly measuring 5.0 x 3.7 cm. Sequelae of right nephrectomy. Soft tissue mass along the right posterior paraspinous muscles opposit e T4 measuring 3.1 x 2.4 cm. IMPRESSION: No acute thoracic spine osseous abnormality. Mild degenerative changes as above. Pulmonary and left adrenal metastatic lesions, as well as a right paraspinous muscle soft tissue nodu le which may represent a soft tissue metastatic deposit. The findings are overall stable.
--- NOTE | 2025-09-05 17:16 | RAD REPORT ---
EXAMINATION: CT LUMBAR SPINE WITHOUT CONTRAST CLINICAL INDICATION: Male, 89 years old. fall;Pain TECHNIQUE: Axial CT images were obtained through the lumbar spine in soft tissue and bone windows wit hout intravenous contrast. Coronal and Sagittal reformatted images were created from the data set. One or more of the following dose reduction techniques were used: Automated exposure control, adjustm ent of the mA and/ or kV according to patient size, and/or iterative reconstruction. Unless otherwise specified, incidental findings do not require dedicated imaging follow-up. COMPARISON: CT abdomen and pelvis 03/27/2025. FINDINGS: For purposes of this dictation, it is assumed that there are 5 non rib-bearing lumbar type vertebrae, and the most caudal fully segmented lumbar vertebra is labeled L5. ALIGNMENT: The lumbar spine demonstrates normal alignment without scoliosis or spondylolisthesis. BONES: Progressive superior endplate compression deformity at L2 since the prior exam with mild verte bral body height loss anteriorly. No focal underlying suspicious osseous lesion although diffuse osteopenia limits evaluation Schmorl's node formation along the left aspect of L4 superior endplate a ppears stable. Other scattered moderate multilevel degenerative changes. DISCS: Intervertebral disc space heights are maintained. LEVELS: No significant spinal canal stenosis. Disc osteophyte complexes at L1-2, L4-5, and L5-S1, con tributing to variable degrees of neural foraminal narrowing, moderate bilaterally at L1-2, up to moderate bilaterally at L4-5 more so on the left, and moderate to severe bilaterally at L5-S1 worse o n the left. No visualized abnormality within the spinal canal. SOFT TISSUE: Left adrenal lobulated metastatic nodules, grossly stable. Status post right nephrectomy . Left renal cortical medial lower pole exophytic 4.8 cm cyst, stable. IMPRESSION: Progressive/new superior endplate compression deformity at L2 with mild vertebral body height loss. D iffuse osteopenia limits evaluation. Other stable findings including left adrenal metastases as above. Spondylotic changes as above contributing to variable degrees of neural foraminal narrowing most pron ounced at L5-S1, worse on the left. THIS REPORT CONTAINS FINDINGS THAT MAY BE CRITICAL TO PATIENT CARE. The findings were verbally commun icated via telephone to Roman Franco on 09/05/2025 5:12 PM.
--- NOTE | 2025-09-05 17:24 | ER ---
Nurse's Notes [facility] Name: Steve García Age: 89 yrs Sex: Male : 1935 Arrival Date: 09/05/2025 Time: 15:33 Bed 8 Private MD: Diagnosis: Fall on same level, unspecified;Low back pain;Adrenal nodule with metastasis;L2 Compression fracture Presentation: 09/05 15:40 Chief complaint: Patient states: he fell getting out of his truck. patient fell onto ap3 his knees and chest then onto his head. patient reports back, neck and left arm/shoulder pain. patient denies any LOC or blood thinners. Coronavirus screen: At this time, the client does not indicate any symptoms associated with coronavirus-19. Ebola Screen: No symptoms or risks identified at this time. Initial Sepsis Screen: Does the patient meet any 2 criteria? No. Patient's initial sepsis screen is negative. Does the patient have a suspected source of infection? No. Patient's initial sepsis screen is negative. Risk Assessment: Do you want to hurt yourself or someone else? Patient reports no desire to harm self or others. Onset of symptoms was September 05, 2025. Care prior to arrival: Cervical collar in place. IV initiated. 20 GA, in the left wrist. 15:40 Method Of Arrival: EMS: [facility] ap3 15:40 Acuity: DEANNE 3 ap3 15:45 Mechanism of Injury: Fall from standing position. Trauma event details: Injury occurred ap3 in the [facility], Injury occurred: on a street or highway. Injury occurred: September 05, 2025. Triage Assessment: 15:43 General: Appears in no apparent distress. Behavior is calm, cooperative, appropriate ap3 for age. Pain: Complains of pain in back, left arm and neck. Neuro: Level of Consciousness is awake, alert, obeys commands, Oriented to person, place, time, situation, Appropriate for age. Cardiovascular: Patient's skin is warm and dry. Respiratory: Airway is patent Respiratory effort is even, unlabored, Respiratory pattern is regular, symmetrical. Historical: - Allergies: 15:42 NKDA; ap3 - PMHx: 15:42 Dementia; Hyperlipidemia; Hypertension; Kidney stones; ap3 - Immunization history:: Adult Immunizations unknown. - Infectious Disease History:: Denies. - Immunization history: Last tetanus immunization: unknown. - Social history:: Smoking status: unknown. Screenin:43 Abuse screen: Denies threats or abuse. Nutritional screening: No deficits noted. ap3 Tuberculosis screening: No symptoms or risk factors identified. 15:44 [facility] ED Fall Risk Assessment (Adult) History of falling in the last 3 months, ap3 including since admission Yes- single mechanical fall (1 pt) Confusion or Disorientation No (0 pts) Intoxicated or Sedated No (0 pts) Impaired Gait No (0 pts) Mobility Assist Device Used No (0 pt) Altered Elimination No (0 pt) Score/Fall Risk Level 0 - 2 = Low Risk Oriented to surroundings, Maintained a safe environment, Educated pt \T\ family on fall prevention, incl call for assistance when getting out of bed, Assessed \T\ reinforced patient's understanding of fall precautions, Hourly rounding (assess needs \T\ fall precautionary measures) done, Used ambulatory aids as needed (educated on \T\ assisted with). Primary Survey: 15:44 NO uncontrolled hemorrhage observed. Breathing/Chest: Spontaneous respiratory effort, ap3 equal unlabored respirations, breath sounds clear bilaterally, regular pattern, symmetrical chest rise and fall. Circulation: No external hemorrhage present. Regular and strong central pulse, skin warm/dry/normal color. Disability Client is alert. Exposure/Environment: A warming method has been applied: A warm blanket has been provided to the patient. 17:51 Reassessment Breathing: Spontaneous respiratory effort, equal unlabored respirations, ap3 breath sounds clear bilaterally, regular pattern with symmetrical chest rise and fall. Circulation: No external hemorrhage noted. Regular and strong central pulse, skin warm/dry/normal color. Disability: Alert. Assessment: 17:17 Reassessment: Patient and/or family updated on plan of care and expected duration. Pain ap3 level reassessed. Patient is alert, oriented x 3, equal unlabored respirations, skin warm/dry/pink. Vital Signs: 15:40 BP 138 / 73; Pulse 69; Resp 18; Temp 98.6; Pulse Ox 96% on R/A; Weight 63.5 kg; ap3 16:19 BP 129 / 59; Pulse 67; Resp 18; Pulse Ox 96% on R/A; ap3 17:16 BP 147 / 69; Pulse 73; Resp 18; Pulse Ox 97% ; ap3 Dino Coma Score: 15:44 Eye Response: spontaneous(4). Motor Response: obeys commands(6). Verbal Response: ap3 oriented(5). Total: 15. Trauma Score (Adult): 15:44 Eye Response: spontaneous(1); Verbal Response: oriented(1); Motor Response: obeys ap3 commands(2); Systolic BP: > 89 mm Hg(4); Respiratory Rate: 10 to 29 per min(4); Dino Score: 15; Trauma Score: 12 ED Course: 15:35 Patient arrived in ED. im 15:37 Roman Franco DO is Attending Physician. ms3 15:39 Sadie Ferguson, JULIO CESAR is Primary Nurse. ap3 15:42 Triage completed. ap3 15:44 Arm band placed on right wrist. ap3 15:44 Patient maintains SpO2 saturation greater than 95% on room air. ap3 15:45 Patient has correct armband on for positive identification. Bed in low position. Call ap3 light in reach. Side rails up X2. cargo supervisor on. Pulse ox on. NIBP on. 15:45 Thermoregulation: warm blanket given to patient. ap3 15:54 CT Head C Spine In Process Unspecified. EDMS 15:[address] Thor[address] Spine WO Cont CT In Process Unspecified. EDMS 15:54 Spine Lumbar Wo Con CT In Process Unspecified. EDMS 16:19 Initial lab(s) drawn, by me, sent to lab. Inserted saline lock: 20 gauge in right ap3 antecubital area, using aseptic technique. Blood collected. Flushed with 10 mL NS. 16:19 Basic Metabolic Panel Sent. ap3 16:19 CBC with Diff Sent. ap3 16:19 Type And Screen Sent. ap3 17:16 ED physician to see patient. ap3 17:51 No provider procedures requiring assistance completed. IV discontinued, intact, ap3 bleeding controlled, No redness/swelling at site. Pressure dressing applied. 17:52 Provided Education on: wound care. ap3 Administered Medications: 15:39 CANCELLED (Physician Discretion): midazolamor iv 2 mg IVP once ms3 17:50 Drug: Boostrix Tdap IM 0.5 ml IM once; as a single dose {Note: lot number [id number], exp ap3 02/10/28.} Route: IM; Site: right deltoid; 17:51 Follow up: Response: (VIS) Vaccine information sheet provided today. Questions and/or ap3 concerns addressed. VIS edition date: Jun 21, 2021.; No adverse reaction Medication: 17:52 Vaccine Information Statement (VIS) provided today. Questions and/or concerns ap3 addressed. VIS edition date: June 2024. Intake: 17:53 PO: 0ml; Total: 0ml. ap3 Outcome: 17:23 Discharge ordered by MD. ms3 17:52 Discharged to home via wheelchair, ap3 17:52 Condition: good 17:52 Discharge instructions given to patient, family, Instructed on discharge instructions, follow up and referral plans. Demonstrated understanding of instructions, follow-up care, 17:53 Patient's length of stay was not longer than 2 hours. ap3 17:54 Patient left the ED. ap3 Signatures: Dispatcher [employer] EDSadie Butler RN RN ap3 Roman Franco DO DO ms3 Natalie Cotter im
--- NOTE | 2025-09-05 17:24 | EDPHYS ---
Physician Documentation [facility] Name: Steve García Age: 89 yrs Sex: Male : 1935 Arrival Date: 09/05/2025 Time: 15:33 Bed 8 Private MD: ED Physician Roman Franco HPI: 09/05 15:45 This 89 yrs old Male presents to ER via EMS with complaints of Fall Injury. ms3 15:45 89-year-old male with past medical history of dementia, hyperlipidemia, hypertension, ms3 kidney stones presents to the emergency department after his leg gave out while getting out of his truck. EMS notes a lump on his thoracic vertebra that is nontender to palpation. Patient states he is unsure when his last tetanus. Patient is complaining of whole back pain. He denies any alleviating or inciting factors.. Historical: - Allergies: 15:42 NKDA; ap3 - PMHx: 15:42 Dementia; Hyperlipidemia; Hypertension; Kidney stones; ap3 - Immunization history:: Adult Immunizations unknown. - Infectious Disease History:: Denies. - Immunization history: Last tetanus immunization: unknown. - Social history:: Smoking status: unknown. ROS: 15:45 Constitutional: Negative for fever, and chills. Cardiovascular: Negative for chest ms3 pain, and palpitations. Respiratory: Negative for shortness of breath, cough, wheezing, and pleuritic chest pain, Abdomen/GI: Negative for abdominal pain, nausea, vomiting, diarrhea, and constipation, 15:45 MS/extremity: Positive for Back pain, 15:45 Skin: Positive for abrasion(s), Exam: 15:45 Constitutional: This is a well developed, well nourished patient who is awake, alert, ms3 and in no acute distress. Cardiovascular: Regular rate and rhythm with a normal S1 and S2. No gallops, murmurs, or rubs. Normal PMI, no JVD. No pulse deficits. Respiratory: Lungs have equal breath sounds bilaterally, clear to auscultation and percussion. No rales, rhonchi or wheezes noted. No increased work of breathing, no retractions or nasal flaring. Abdomen/GI: Soft, non-tender, with normal bowel sounds. No distension or tympany. No guarding or rebound. No evidence of tenderness throughout. Skin: Warm, dry with normal turgor. Normal color with no rashes, no lesions, and no evidence of cellulitis. 15:45 Back: pain, that is moderate, of the thoracic area and lumbar area, ROM is normal, normal spinal alignment noted, Vital Signs: 15:40 BP 138 / 73; Pulse 69; Resp 18; Temp 98.6; Pulse Ox 96% on R/A; Weight 63.5 kg; ap3 16:19 BP 129 / 59; Pulse 67; Resp 18; Pulse Ox 96% on R/A; ap3 17:16 BP 147 / 69; Pulse 73; Resp 18; Pulse Ox 97% ; ap3 Phoenix Coma Score: 15:44 Eye Response: spontaneous(4). Motor Response: obeys commands(6). Verbal Response: ap3 oriented(5). Total: 15. Trauma Score (Adult): 15:44 Eye Response: spontaneous(1); Verbal Response: oriented(1); Motor Response: obeys ap3 commands(2); Systolic BP: > 89 mm Hg(4); Respiratory Rate: 10 to 29 per min(4); Phoenix Score: 15; Trauma Score: 12 MDM: 15:37 Medical Screening Exam initiated ms3 15:45 Differential diagnosis: abrasion, closed head injury, contusion, fracture, sprain, ms3 strain. 17:26 Data reviewed: vital signs, nurses notes, lab test result(s), radiologic studies, and ms3 as a result, I will discharge patient. 17:28 I considered the following discharge prescriptions or medication management in the [facility] [place] emergency department Medications were administered in the Emergency Department. See MAR. Counseling: I had a detailed discussion with the patient and/or guardian regarding the historical points, exam findings, and any diagnostic results supporting the discharge/admit diagnosis, lab results, radiology results, the need for outpatient follow up, to return to the emergency department if symptoms worsen or persist or if there are any questions or concerns that arise at home. Special discussion: I discussed with the patient/guardian in detail that at this point there is no indication for admission to the hospital. It is understood, however, that if the symptoms persist or worsen the patient needs to return immediately for re-evaluation. I discussed with the patient the need to follow-up with the PCP/specialist for the noted incidental finding on X-ray/CT scanning. ED course: Discussed metastatic findings on CT with patient and his . Patient and his state [facility] return precautions discussed include worsening symptoms, or any other concerns. On reevaluation patient is ambulatory in the emergency department, alert, no apparent distress, nontoxic-appearing, speaking full sentences.. 09/05 15:40 Order name: Basic Metabolic Panel; Complete Time: 16:38 ms3 09/05 15:40 Order name: CBC with Diff; Complete Time: 16:38 ms3 09/05 15:40 Order name: Type And Screen ms3 09/05 15:40 Order name: CT Head C Spine; Complete Time: 17:09 ms3 09/05 15:40 Order name: Thoracic Spine WO Cont CT; Complete Time: 17:09 ms3 09/05 15:40 Order name: Spine Lumbar Wo Con CT; Complete Time: 17:18 ms3 09/05 15:40 Order name: Labs collected and sent; Complete Time: 16:19 ms3 Administered Medications: 15:39 CANCELLED (Physician Discretion): midazolamor iv 2 mg IVP once ms3 17:50 Drug: Boostrix Tdap IM 0.5 ml IM once; as a single dose {Note: lot number [id number], exp ap3 02/10/28.} Route: IM; Site: right deltoid; 17:51 Follow up: Response: (VIS) Vaccine information sheet provided today. Questions and/or ap3 concerns addressed. VIS edition date: Jun 21, 2021.; No adverse reaction Disposition Summary: 09/05/25 17:23 Discharge Ordered Notes: Location: Home ms3 Condition: Stable ms3 Diagnosis - Fall on same level, unspecified ms3 - Low back pain ms3 - Adrenal nodule with metastasis ms3 - L2 Compression fracture ms3 Followup: ms3 - With: Private Physician - When: 2 - 3 days - Reason: Further diagnostic work-up, Recheck today's complaints Discharge Instructions: - Discharge Summary Sheet ms3 - Acute Back Pain, Adult ms3 - Chronic Back Pain ms3 - Spinal Compression Fracture ms3 - Metastatic Cancer ms3 Forms: - Medication Reconciliation Form ms3 - Antibiotic Education ms3 - Prescription Opioid Use ms3 - Patient Portal Instructions ms3 - Leadership Thank You Letter ms3 Signatures: Dispatcher [employer] Sadie Staples RN RN ap3 Roman Franco DO DO ms3 Corrections: (The following items were deleted from the chart) 15:39 15:39 Midazolam IVP or IV 2 mg IVP once ordered. ms3 ms3 15:41 15:41 Head C Spine MPR Wo Con+CT.RAD.BRZ ordered. EDMS EDMS 15: 15:41 Thoracic Spine WO Cont+CT.RAD.BRZ ordered. EDMS EDMS 15: 15:41 Spine Lumbar Wo Con+CT.RAD.BRZ ordered. EDMS EDMS
[2025-09-05] MEDS ORDERED: TDAP (DIPHTH,PERTUSS(ACELL),TET VAC) 0.5 ML VIAL IMVAC ONE (17:32)
[2025-09-05 20:22] VITALS: TEMP 98.6
[2025-09-05 20:24] VITALS: BP 147/69; O2SAT 97
== END 2025-09-05 17:54 | disposition home or self-care (01) ==
LOC: ER 15:33
DX: S32.020A Wedge compression fracture of second lumbar vertebra, initial encounter for closed fracture (principal); D35.02 Benign neoplasm of left adrenal gland; W18.30XA Fall on same level, unspecified, initial encounter; Z23 Encounter for immunization
CPT/HCPCS: 36415; 70450; 72125; 72128; 72131; 80048; 85025; 86850; 86900; 86901; 90715; 96372; 99285